=== PATIENT | female | born 1970 | race Caucasian/White ===

== ENCOUNTER 2020-08-26 13:24 | Outpatient (REF) | payer OTHER, SELFPAY ==
[2020-08-26 13:45] LABS: COVID-19 Test Negative (Negative)
== END 2020-08-26 13:25 | disposition home or self-care (01) ==
LOC: HO.EMPCOV 13:24
PROVIDERS: Visit Provider Internal Medicine
DX: Z20.822 Contact with and (suspected) exposure to COVID-19 (principal)
CPT/HCPCS: 36415; 87635; C9803

== ENCOUNTER 2020-09-16 07:59 | Outpatient (REF) | payer OTHER, SELFPAY ==
[2020-09-16 08:16] LABS: COVID-19 Test Negative (Negative); IDNOW Serial# 55D5AD1C
== END 2020-09-16 08:00 | disposition home or self-care (01) ==
LOC: HO.EMPCOV 07:59
PROVIDERS: Visit Provider Internal Medicine
DX: Z20.822 Contact with and (suspected) exposure to COVID-19 (principal)
CPT/HCPCS: 36415; 87635; C9803

== ENCOUNTER 2020-12-15 09:03 | Outpatient (REF) | payer OTHER, SELFPAY | END 2020-12-15 09:04 | disposition home or self-care (01) | LOC: HO.LAB 09:03 | PROVIDERS: PCP Internal Medicine; Visit Provider Obstetrics & Gynecology | DX: Z13.89 Encounter for screening for other disorder (principal) ==

== ENCOUNTER 2020-12-20 08:25 | Outpatient (REF) | payer OTHER, SELFPAY ==
--- NOTE | ~2020-12-20 | US_ITS ---
EXAMINATION: ULTRASOUND PELVIS. CLINICAL INFORMATION: History of fibroids. Pelvic pain. COMPARISON: None TECHNIQUE: Transabdominal and transvaginal imaging of pelvis is performed. FINDINGS: The uterus is anteverted and anteflexed measuring 10.5 cm in length, 7.6 and AP and 9.3 cm in transverse dimension . The endometrial thickness is 0.61 cm. There are multiple hypoechoic fibroids. 1. A right fundal fibroid measures 5.9 x 5.3 x 4.6 cm. Previously it measured 4.9 x 4.5 x 4.1 cm. 2. A second left upper body/fundal fibroid measures 3.2 x 3.4 x 2.8 cm. Previously it measured 3.6 x 3.1 x 2.9 cm. 3. A third fibroid in the mid left mid body of uterus measures 3.2 x 2.4 x 2.9 cm. Previously noted 2.5 x 2.3 x 2.8 cm. Imaging through the cervix reveals small nabothian cysts. The right ovary measures 3.3 x 1.8 x 3.0 cm and volume 9.3 mL. It appears unremarkable. Previously right ovary measures 3.4 x 2.0 x 1.8 cm Left ovary measures 2.3 x 2.1 x 2.4 cm and volume 6.2 mL. Previously it measured 3.0 x 1.1 x 2.8 cm. There is no free fluid in the cul-de-sac. US/US pelvic and transvaginal IMPRESSION: Both uterine fibroids are stable. Small nabothian cysts in the cervix. Ovaries are unremarkable.
== END 2020-12-20 08:26 | disposition home or self-care (01) ==
LOC: HO.HMGCX 08:25
PROVIDERS: PCP Internal Medicine; Visit Provider Obstetrics & Gynecology
DX: N85.2 Hypertrophy of uterus (principal)
CPT/HCPCS: 76830; 76856

== ENCOUNTER 2020-12-27 10:16 | Outpatient (REF) | payer OTHER, SELFPAY ==
[2020-12-27 11:14] LABS: Hematocrit 39.6 % (37-47); Hemoglobin 12.7 g/dl (12.0-16.0); Mean Corpuscular HGB Conc 32.1 g/dl (31.0-35.0); Mean Corpuscular Hemoglobin 26.7 pg (27.0-33.0); Mean Corpuscular Volume 83.4 fL (80-98); Mean Platelet Volume 10.5 fL (9.4-12.3); Platelet Count 326 X10*3/uL (160-400); Red Blood Count 4.75 X10*6/uL (4.20-5.50); Red Cell Distribution Width 13.1 % (11.0-16.0); White Blood Count 5.8 X10*3/uL (4.8-10.8)
[2020-12-27 11:37] LABS: Alanine Aminotransferase 15 U/L (0-31); Albumin Level 4.2 g/dL (3.5-5.0); Alkaline Phosphatase 60 U/L (39-117); Anion Gap 13 (12-20); Aspartate Amino Transferase 13 U/L (5-31); Bilirubin Direct 0.2 mg/dL (0.0-0.5); Bilirubin Total 0.5 mg/dL (0.0-1.0); Blood Urea Nitrogen 11 mg/dL (9-16); C Reactive Protein 0.33 mg/dL (< or = 0.50); Carbon Dioxide 23 mmol/L (22-29); Chloride 106 mmol/L (96-108); Cholesterol 210 mg/dL; Estimated Glomerular Filt Rate > 60; Glucose Random 97 mg/dL (60-115); HDL Cholesterol 60 mg/dL; LDL Cholesterol Calculated 139 mg/dl; Potassium 4.1 mmol/L (3.3-5.1); Sodium 138 mmol/L (135-145); Total Protein 7.1 g/dL (6.5-8.0); Triglycerides 57 mg/dL
[2020-12-27 11:42] LABS: Glucose Urine UA NEG (NEG); Leukocyte Esterase Urine NEG (NEG); Nitrite Urine NEG (NEG); Specific Gravity - Urine 1.015 (1.005-1.025); Urine Blood 3+ (NEG); Urine Ketones NEG (NEG); Urine Protein NEG (NEG-TRACE)
[2020-12-27 11:54] LABS: Appearance Urine HAZY; Color Urine YELLOW
[2020-12-27 12:06] LABS: Folate 13.5 ng/mL (> or = 4.0); Vitamin B12 565 pg/mL (200-900)
[2020-12-27 12:31] LABS: Renal Epithelial Cells Urine TRACE /LPF; Squamous Epithelial Cell Urine 1+ /LPF; WBC Urine 0 /HPF (0-4)
[2020-12-31 16:42] LABS: Vitamin D 25-OH, D2 <4 ng/mL; Vitamin D 25-OH, D3 13 ng/mL; Vitamin D 25-OH, Total 13 ng/mL (30-100)
== END 2020-12-27 10:17 | disposition home or self-care (01) ==
LOC: HO.LAB 10:16
PROVIDERS: PCP Internal Medicine; Visit Provider Internal Medicine
DX: K51.90 Ulcerative colitis, unspecified, without complications (principal); R53.82 Chronic fatigue, unspecified
CPT/HCPCS: 36415; 80048; 80061; 80076; 81001; 81003; 82306; 82607; 82746; 85027; 86140

== ENCOUNTER 2021-03-04 12:53 | Outpatient (REF) | payer OTHER, SELFPAY ==
--- NOTE | ~2021-03-04 | MM_ITS ---
EXAMINATION: MM SCREENING DIGITAL BREAST TOMOSYNTHESIS, BILATERAL CLINICAL INFORMATION: Screening. Asymptomatic. The lifetime risk of breast cancer based on the Tyrer-Cuzick Model is 16%. COMPARISON: Mammography: 09/13/2018, 07/24/2014 (baseline) TECHNIQUE: Digital breast tomosynthesis is performed in both the craniocaudal and mediolateral oblique views along with computer-aided detection (CAD). Synthesized 2D images are generated from the tomosynthesis. FINDINGS: There are scattered areas of fibroglandular density (ACR BI-RADS breast composition Category b). There are no significant masses, abnormal calcifications, or other abnormalities. Parenchymal pattern is similar to prior studies. No significant changes. MM/MM tomosynthesis screening BI IMPRESSION: No mammographic evidence of malignancy. ASSESSMENT: BI-RADS 1: Negative RECOMMENDATION: Routine annual mammography screening. This patient's information was entered into a reminder system with a target due date for their next mammogram.
[2021-03-04 16:44] LABS: COVID-19 Test Negative (Negative)
== END 2021-03-04 12:54 | disposition home or self-care (01) ==
LOC: HO.MAMMO 12:53
PROVIDERS: PCP Internal Medicine; Referring Provider Physician Assistant Medical; Visit Provider Internal Medicine
DX: Z12.31 Encounter for screening mammogram for malignant neoplasm of breast (principal); Z20.822 Contact with and (suspected) exposure to COVID-19
CPT/HCPCS: 36415; 77063; 77067; 87635

== ENCOUNTER 2021-10-20 12:43 | Outpatient (REF) | payer OTHER, SELFPAY ==
--- NOTE | ~2021-10-20 | XR_ITS ---
EXAMINATION: XR KNEE, RIGHT CLINICAL INFORMATION: Pain in right knee. COMPARISON: X-ray of the right knee December 2011. TECHNIQUE: 3 views of the right knee. FINDINGS: Bones and soft tissues are normal. No fracture or joint effusion. Alignment is anatomic. Joint spaces are well maintained. No abnormal soft tissue calcification. XR/XR knee RT 3V IMPRESSION: Normal right knee.
== END 2021-10-20 12:44 | disposition home or self-care (01) ==
LOC: HO.XRAY 12:43
PROVIDERS: PCP Internal Medicine; Visit Provider Internal Medicine
DX: M25.561 Pain in right knee (principal)
CPT/HCPCS: 73562

== ENCOUNTER 2021-12-09 13:47 | Outpatient (REF) | payer OTHER, SELFPAY ==
[2021-12-09 14:46] LABS: Influenza A PCR NEGATIVE (Negative); Influenza B PCR NEGATIVE (Negative); Resp Syncy Virus RNA Qual PCR NEGATIVE (Negative); SARS COV2 PCR INHOUSE NEGATIVE (Negative)
== END 2021-12-09 13:48 | disposition home or self-care (01) ==
LOC: HO.LNP 13:47
PROVIDERS: Visit Provider Nurse Practitioner Acute Care
DX: Z20.822 Contact with and (suspected) exposure to COVID-19 (principal)
CPT/HCPCS: 0241U

== ENCOUNTER 2021-12-09 14:29 | Outpatient (REF) | payer OTHER, SELFPAY | END 2021-12-09 14:30 | disposition home or self-care (01) | LOC: HO.LAB 14:29 | PROVIDERS: Visit Provider Nurse Practitioner Acute Care | DX: Z13.89 Encounter for screening for other disorder (principal) ==

== ENCOUNTER 2021-12-26 10:20 | Outpatient (REF) | payer OTHER, SELFPAY ==
[2021-12-26 16:54] LABS: CT PCR NOT DETECTED (Not Detect.); NG PCR NOT DETECTED (Not Detect.)
[2021-12-27 13:17] LABS: BV Int Neg Control Negative (Negative); BV Int Pos Control Positive (Positive)
[2021-12-29 02:10] LABS: HPV mRNA E6/E7 rflx Not Detected (Not Detected)
== END 2021-12-26 10:21 | disposition home or self-care (01) ==
LOC: HO.LAB 10:20
PROVIDERS: PCP Internal Medicine; Visit Provider Advanced Practice Midwife
DX: Z01.419 Encounter for gynecological examination (general) (routine) without abnormal findings (principal); Z11.51 Encounter for screening for human papillomavirus (HPV); N93.9 Abnormal uterine and vaginal bleeding, unspecified; Z20.2 Contact with and (suspected) exposure to infections with a predominantly sexual mode of transmission; Z86.018 Personal history of other benign neoplasm
CPT/HCPCS: 87480; 87491; 87510; 87591; 87624; 87660; 88142

== ENCOUNTER 2022-01-03 08:54 | Outpatient (REF) | payer OTHER, SELFPAY ==
--- NOTE | ~2022-01-03 | MM_ITS ---
EXAMINATION: MM DIAGNOSTIC DIGITAL BREAST TOMOSYNTHESIS, BILATERAL US DIAGNOSTIC ULTRASOUND BREAST, RIGHT CLINICAL INFORMATION: Recent right breast pain. Age 51. Family history breast cancer, daughter. TC score 20%. Due for yearly. COMPARISON: Mammography: 03/04/2021, 09/13/2018, 07/24/2014 TECHNIQUE: Digital breast tomosynthesis is performed in both the craniocaudal and mediolateral oblique views along with computer-aided detection (CAD). Synthesized 2D images are generated from the tomosynthesis. Additional views are obtained: Spot left CC, spot left MLO. Ultrasound right breast is targeted to the area of clinical concern retroareolar breast, lower outer quadrant, lower inner quadrant. Grayscale imaging and color Doppler are performed without and with harmonics. FINDINGS: There are scattered areas of fibroglandular density (ACR BI-RADS breast composition Category b). Breast tissue composition borders on heterogeneously dense. Parenchymal asymmetry mid upper outer left breast shows no significant change from prior studies on the additional spot views. Neither breast shows interval mass or architectural abnormality or abnormal calcifications. The axilla and skin contours are unremarkable. There is no skin thickening or coarsening of the Chandler's ligaments. Ultrasound right breast demonstrates incidental smooth oval isoechoic nodule 9:00 position 4 cm from nipple measuring under 1 cm, or approximately 0.8 x 0.7 x 0.4 cm. This most likely represents an occult fibroadenoma and may be followed in 6 months with targeted ultrasound to confirm stability. The remainder of the right ultrasound shows no cystic or solid mass or architectural abnormality or focal duct ectasia. There is no skin thickening or edema tracking in soft tissue planes. Results are discussed with the patient at time of visit. MM/MM tomosynthesis diagnostic BI IMPRESSION: -Mammogram shows no significant change from prior studies. -No focal inflammatory changes on mammography or ultrasound. -Probable benign fibroadenoma 9:00 right breast, under 1 cm. ASSESSMENT: BI-RADS 3: Probably Benign RECOMMENDATION: Targeted right breast ultrasound in 6 months. This patient's information was entered into a reminder system with a target due date for their next mammogram.
== END 2022-01-03 08:55 | disposition home or self-care (01) ==
LOC: HO.MAMMO 08:54
PROVIDERS: PCP Internal Medicine; Visit Provider Internal Medicine
DX: N64.4 Mastodynia (principal); Z80.3 Family history of malignant neoplasm of breast
CPT/HCPCS: 76642; 77062; 77066

== ENCOUNTER 2022-02-28 10:28 | Outpatient (REF) | payer OTHER, SELFPAY ==
--- NOTE | ~2022-02-28 | US_ITS ---
EXAMINATION: US PELVIS CLINICAL INFORMATION: History of fibroids. Abnormal vaginal bleeding. COMPARISON: 12/20/2020. TECHNIQUE: Ultrasound of the pelvis is performed using both transabdominal and transvaginal transducers along with Doppler. Transvaginal imaging is performed due to inadequate visualization transabdominally. FINDINGS: The uterus is enlarged and anteverted/anteflexed measuring 9.8 x 6.7 x 7.2 cm. Multiple fibroids are noted as follow: 1. A 1.5 x 1.1 x 1.8 cm right fundal intramural fibroid, previously not seen. 2. A 2 x 1.8 x 2 cm left fundal intramural fibroid, previously 3.2 x 3.4 x 2.8 cm. 3. A 2.5 x 2.8 x 2.5 cm right upper part submucosal fibroid, previously not seen. 4. A 3.2 x 3.2 x 3.1 cm left mid uterine intramural fibroid, previously 3.2 x 2.4 x 2.9 cm. 5. A 5.8 x 4.7 x 4.9 cm right lower, possibly part submucosal fibroid, previously 5.9 x 5.3 x 4.6 cm. 6. A 2.4 x 1.9 x 2.3 cm right mid uterine intramural fibroid, previously not seen. Nabothian cysts overlie the cervix. The endometrium is not well visualized due to distortion from the fibroids. The ovaries are best visualized transabdominal with normal morphology and preserved flow at the moment of this examination. The right ovary measures 4.3 x 2.3 x 4.9 cm and the left ovary measures 2.9 x 1.2 x 2.2 cm. Discrepancies in size are likely related with the presence of a 3.3 cm dominant simple appearing cyst in the right ovary. No free fluid. US/US pelvic and transvaginal IMPRESSION: Multiple uterine fibroids, some of which appeared new as above. Asymmetric enlargement of the right ovary, favored to be related with the presence of a 3.3 cm dominant cyst almost certainly benign and for which no follow-up is recommended.
[2022-02-28 13:54] LABS: Hematocrit 40.7 % (37.0-47.0); Mean Corpuscular HGB Conc 31.9 g/dl (31.0-35.0); Mean Corpuscular Volume 84.6 fL (80.0-98.0); Mean Platelet Volume 10.3 fL (9.4-12.3); Platelet Count 373 X10*3/uL (160-400); Red Blood Count 4.81 X10*6/uL (4.20-5.50); Red Cell Distribution Width 12.7 % (11.0-16.0); White Blood Count 6.1 X10*3/uL (4.8-10.8)
[2022-02-28 14:33] LABS: HCG Quantitative < 2 mIU/mL; Thyroid Stimulating Hormone 3.04 uIU/mL (0.32-4.0)
[2022-03-02 10:36] LABS: Follicle Stimulating Hormone 7.3 mIU/mL
== END 2022-02-28 10:29 | disposition home or self-care (01) ==
LOC: HO.HMGCX 10:28
PROVIDERS: PCP Internal Medicine; Visit Provider Advanced Practice Midwife
DX: O20.0 Threatened abortion (principal); R23.2 Flushing
CPT/HCPCS: 36415; 76830; 76856; 83001; 84443; 84702; 85027

== ENCOUNTER 2022-03-24 08:26 | Outpatient (REF) | payer OTHER, SELFPAY | END 2022-03-24 08:27 | disposition home or self-care (01) | LOC: HO.LAB 08:26 | PROVIDERS: PCP Internal Medicine; Visit Provider Advanced Practice Midwife | DX: Z32.02 Encounter for pregnancy test, result negative (principal); N93.9 Abnormal uterine and vaginal bleeding, unspecified; D25.9 Leiomyoma of uterus, unspecified; Z71.2 Person consulting for explanation of examination or test findings | CPT/HCPCS: 58100; 81025; 88305 ==

== ENCOUNTER 2022-07-19 10:45 | Outpatient (REF) | payer OTHER, SELFPAY ==
--- NOTE | ~2022-07-19 | US_ITS ---
EXAMINATION: US DIAGNOSTIC ULTRASOUND BREAST, RIGHT CLINICAL INFORMATION: Short interval six-month follow-up probable benign nodule mid outer right breast. Nodule noted on targeted ultrasound performed for mastodynia, mammographic occult. Family history breast cancer, daughter. TC score 28%. COMPARISON: Targeted right breast ultrasound 01/03/2022, mammography 01/03/2022. TECHNIQUE: Ultrasound right breast is targeted to the outer breast using grayscale imaging and color Doppler without and with harmonics. FINDINGS: The small oval nodule with smooth margins mid outer breast just under 1 cm is stable in size and smooth in contour. There are no suspicious changes. Nodule will be reassessed again in 6 months at time of annual bilateral mammography to include targeted right breast ultrasound. Results are discussed with the patient at time of visit. US/US breast RT limited IMPRESSION: -Small smooth oval nodule mid outer right breast stable from prior ultrasound. ASSESSMENT: BI-RADS 3: Probably Benign RECOMMENDATION: Targeted ultrasound right breast at time of annual mammography, due in 6 months. This patient's information was entered into a reminder system with a target due date for their next mammogram.
== END 2022-07-19 10:46 | disposition home or self-care (01) ==
LOC: HO.MAMMO 10:45
PROVIDERS: PCP Internal Medicine; Visit Provider Internal Medicine
DX: N63.15 Unspecified lump in the right breast, overlapping quadrants (principal)
CPT/HCPCS: 76642

== ENCOUNTER 2022-07-28 10:36 | Outpatient (REF) | payer OTHER, SELFPAY ==
--- NOTE | ~2022-07-28 | US_ITS ---
EXAMINATION: US PELVIS CLINICAL INFORMATION: History of fibroids. Three-month followup. COMPARISON: Ultrasound pelvis and transvaginal 02/28/2022. TECHNIQUE: Ultrasound of the pelvis is performed using both transabdominal and transvaginal transducers along with Doppler. Transvaginal imaging is performed due to inadequate visualization transabdominally. FINDINGS: Uterus: The uterus is anteverted, anteflexed and measures 13.5 x 7.9 x 8.9 cm. The double wall endometrial thickness is not visualized due to multiple fibroids distorting the endometrium. The uterus is bulky and heterogeneous. There are multiple uterine fibroids. 1. A right fundal fibroid measures 2.5 x 2.5 x 2.5 cm. Previously, it measured 1.5 x 1.1 x 1.8 cm. 2. A left fundal fibroid measures 1.6 x 1.9 x 2.3 cm. Previously, it measured 2.0 x 1.8 x 2.0 cm. 3. Previously seen lesion in the right body of the uterus is not visualized. 4. There is a lesion in the left mid body of the uterus measuring 3.3 x 2.9 x 2.8 cm. Previously, it measured 3.2 x 3.2 x 3.1 cm. 5. There is a lesion in the right mid body of the uterus measuring 5.3 x 5.4 x 4.9 cm. Previously, it measures 5.8 x 4.7 x 4.9 cm. 6. Small lesion seen in the mid right body of the uterus is not visualized at this time. There are small anechoic cysts seen in the cervix. Adnexa: Both ovaries are visualized. There is normal color-flow to the adnexa. There is no ovarian torsion. There is no pelvic ascites or fluid collection. Right ovary measures 4.2 x 3.2 x 4.0 cm and volume 28.7 mL. There is an anechoic cyst measuring 2.7 x 2.3 x 2.6 cm and appears simple cyst. Previously, the right ovary measured 4.3 x 2.3 x 4.9 cm. Left ovary measures 3.6 x 2.6 x 2.5 cm and volume 12.4 mL. There is a simple anechoic cyst measuring 2.0 x 1.3 x 1.5 cm. Previously, left ovary measured 2.9 x 1.2 x 2.2 cm. There is no free fluid in the cul-de-sac. US/US pelvic and transvaginal IMPRESSION: 1. Multiple uterine fibroids, as described above. Previously seen 2 fibroids are not seen at this time. 2. Bilateral simple ovarian cysts. 3. Small nabothian cysts in the cervix.
== END 2022-07-28 10:37 | disposition home or self-care (01) ==
LOC: HO.US 10:36
PROVIDERS: Visit Provider Advanced Practice Midwife
DX: Z86.018 Personal history of other benign neoplasm (principal)
CPT/HCPCS: 76830; 76856

== ENCOUNTER 2022-08-01 | Outpatient (REF) | payer OTHER, SELFPAY ==
--- NOTE | ~2022-08-01 | XR_ITS ---
EXAMINATION: XR knee standing BI CLINICAL INFORMATION: Reason for Exam M25.569 - Pain in unspecified knee COMPARISON: Right knee radiographs 10/20/2021 TECHNIQUE: AP view of the bilateral knees standing. FINDINGS: No acute fracture or dislocation. Joint spaces are maintained without significant degenerative change. No soft tissue abnormality. XR/XR knee standing BI IMPRESSION: No acute osseous abnormality.
== END 2022-08-01 00:01 ==
LOC: HO.HOSX
PROVIDERS: Visit Provider Physician Assistant
DX: M22.41 Chondromalacia patellae, right knee (principal)
CPT/HCPCS: 73565

== ENCOUNTER → 2022-08-18 09:50 | Outpatient (BNVA) | payer OTHER, SELFPAY | PROVIDERS: PCP Internal Medicine; Visit Provider Advanced Practice Midwife | DX: Z13.89 Encounter for screening for other disorder (principal) ==

== ENCOUNTER → 2022-10-12 08:35 | Outpatient (BNVA) | payer OTHER, SELFPAY | PROVIDERS: PCP Internal Medicine; Visit Provider Obstetrics & Gynecology | DX: Z13.89 Encounter for screening for other disorder (principal) ==

== ENCOUNTER 2022-11-10 16:08 | Outpatient (REF) | payer OTHER, SELFPAY ==
[2022-11-10 16:21] LABS: MANUAL DIFF FLAG NO
[2022-11-10 17:16] LABS: Basophils Percent Auto 0.5 % (0-2); Eosinophils Absolute Auto 0.1 X10*3/uL (0.0-0.4); Eosinophils Percent Auto 1.2 % (0-4); Hematocrit 36.7 % (37.0-47.0); Hemoglobin 11.7 g/dl (12.0-16.0); Imm Gran Abs Auto 0.02 X10*3/uL (0.00-0.03); Imm Gran Pct Auto 0.3 % (0.0-0.4); Lymphocytes Absolute Auto 1.8 X10*3/uL (1.2-4.9); Lymphocytes Percent Auto 24.8 % (20-40); Mean Corpuscular HGB Conc 31.9 g/dl (31.0-35.0); Mean Corpuscular Hemoglobin 26.4 pg (27.0-33.0); Mean Corpuscular Volume 82.7 fL (80.0-98.0); Mean Platelet Volume 10.4 fL (9.4-12.3); Monocytes Absolute Auto 0.6 X10*3/uL (0.1-1.2); Monocytes Percent Auto 7.4 % (2-11); Neutrophils Absolute Auto 4.9 x10*3/uL (2.0-8.3); Neutrophils Percent Auto 65.8 % (45-73); Platelet Count 367 X10*3/uL (160-400); Red Blood Count 4.44 X10*6/uL (4.20-5.50); Red Cell Distribution Width 13.2 % (11.0-16.0); White Blood Count 7.4 X10*3/uL (4.8-10.8)
[2022-11-10 17:45] LABS: Alanine Aminotransferase 14 U/L (0-31); Alkaline Phosphatase 53 U/L (39-117); Anion Gap 11 (12-20); Aspartate Amino Transferase 14 U/L (5-31); Bilirubin Total 0.6 mg/dL (0.0-1.0); Blood Urea Nitrogen 11 mg/dL (9-16); C Reactive Protein 0.14 mg/dL (< or = 0.50); Calcium 9.4 mg/dL (8.4-10.2); Carbon Dioxide 27 mmol/L (22-29); Chloride 104 mmol/L (96-108); Estimated Glomerular Filt Rate > 60; Glucose Random 85 mg/dL (60-115); Lipase 21 U/L (8-78); Potassium 4.2 mmol/L (3.3-5.1); Sodium 138 mmol/L (135-145); Total Protein 6.7 g/dL (6.5-8.0)
[2022-11-10 18:04] LABS: Erythrocyte Sedimentation Rate 7 MM/HR (0-20)
[2022-11-10 18:15] LABS: Appearance Urine Clear; Color Urine Yellow; Glucose Urine UA Negative (Negative); Leukocyte Esterase Urine Negative (Negative); Nitrite Urine Negative (Negative); Urine Blood Negative (Negative); Urine Ketones Negative (Negative); Urine Protein Negative (Neg-Trace)
== END 2022-11-10 16:09 | disposition home or self-care (01) ==
LOC: HO.LAB 16:08
PROVIDERS: PCP Internal Medicine; Visit Provider Internal Medicine
DX: R10.9 Unspecified abdominal pain (principal)
CPT/HCPCS: 36415; 80053; 81003; 83690; 85025; 85652; 86140

== ENCOUNTER 2022-11-15 08:17 | Outpatient (REF) | payer OTHER, SELFPAY ==
--- NOTE | ~2022-11-15 | US_ITS ---
EXAMINATION: US ABDOMEN COMPLETE CLINICAL INFORMATION: Unspecified abdominal pain. COMPARISON: 11/06/2019 abdominal ultrasound TECHNIQUE: Real-time imaging of the abdominal viscera. FINDINGS: PANCREAS: Visualized portions unremarkable. ABDOMINAL AORTA: Visualized portions unremarkable. INFERIOR VENA CAVA: Visualized portions unremarkable. LIVER: Unremarkable. GALLBLADDER: Unremarkable. COMMON BILE DUCT: Normal in caliber measuring 0.4 cm in diameter. RIGHT KIDNEY: 10.4 cm. Unremarkable. LEFT KIDNEY: 10.2 cm. Unremarkable. SPLEEN: 8.2 cm. Unremarkable. FREE FLUID: None. OTHER: Additional scanning in the left lower quadrant showed no abnormality. US/US abdomen complete IMPRESSION: Unremarkable abdominal ultrasound.
== END 2022-11-15 08:18 | disposition home or self-care (01) ==
LOC: HO.US 08:17
PROVIDERS: PCP Internal Medicine; Visit Provider Internal Medicine
DX: R10.9 Unspecified abdominal pain (principal)
CPT/HCPCS: 76700

== ENCOUNTER 2023-01-17 08:27 | Outpatient (REF) | payer OTHER, SELFPAY ==
--- NOTE | ~2023-01-17 | MM_ITS ---
EXAMINATION: MM DIAGNOSTIC DIGITAL BREAST TOMOSYNTHESIS, BILATERAL US DIAGNOSTIC ULTRASOUND BREAST, RIGHT CLINICAL INFORMATION: Due for yearly. Also follow-up probable benign smooth nodule anterior outer right breast. Family history breast cancer, daughter. The lifetime risk of breast cancer based on the Tyrer-Cuzick Model is 14%. COMPARISON: Mammography: 01/03/2022, 03/04/2021, 09/13/2018, 07/24/2014 (baseline); right breast ultrasound 01/03/2022. TECHNIQUE: Digital breast tomosynthesis is performed in both the craniocaudal and mediolateral oblique views along with computer-aided detection (CAD). Synthesized 2D images are generated from the tomosynthesis. Ultrasound right breast is targeted to the outer breast using grayscale imaging and color Doppler without and with harmonics. FINDINGS: There are scattered areas of fibroglandular density (ACR BI-RADS breast composition Category b). The parenchymal pattern is similar to prior exams and there is no developing density or architectural abnormality or significant mass. There are scattered bilateral minor asymmetries similar to prior studies. No abnormal calcifications. The axilla and skin contours are unremarkable. Ultrasound right breast demonstrates stable circumscribed hypoechoic subcentimeter nodule 8:00 positions within 6 cm of nipple. Finding is similar in size and contour. No associated color flow. Results are discussed with the patient at time of visit. MM/MM tomosynthesis diagnostic BI IMPRESSION: -No significant changes from prior studies. -Avascular circumscribed nodule under 1 cm for follow-up is stable. ASSESSMENT: BI-RADS 3: Probably Benign RECOMMENDATION: Diagnostic mammography along with targeted right breast ultrasound, due in 12 months. This patient's information was entered into a reminder system with a target due date for their next mammogram.
== END 2023-01-17 08:28 | disposition home or self-care (01) ==
LOC: HO.MAMMO 08:27
PROVIDERS: PCP Internal Medicine; Visit Provider Internal Medicine
DX: N64.89 Other specified disorders of breast (principal)
CPT/HCPCS: 76642; 77062; 77066

== ENCOUNTER 2023-03-22 11:16 | Outpatient (REF) | payer OTHER, SELFPAY ==
--- NOTE | ~2023-03-22 | US_ITS ---
EXAMINATION: US PELVIS COMPLETE CLINICAL INFORMATION: Leiomyoma COMPARISON: Pelvic ultrasound 07/28/2022 TECHNIQUE: Transabdominal and transvaginal imaging was performed. FINDINGS: The uterus is of normal size measuring 9.8 x 7.0 x 8.5 cm. The endometrium is obscured by uterine myomas. Multiple uterine myomas including a transmural myoma measuring 5.9 x 5.1 x 4.2 cm in the fundus, previously 5.3 x 5.4 x 4.5 cm, a myoma measuring 3.6 x 2.8 x 3.4 cm, previously 3.2 x 3.0 x 2.8 cm, a 2.2 x 2.2 x 2.6 cm myoma in the posterior body, previously 1.6 x 1.9 x 2.3 cm and a new 1.4 x 1.7 x 1.3 cm myoma in the posterior body. Given the endometrium was not well seen is difficult to assess if any of these demonstrate submucosal components. The right ovary measures 4 x 2.7 x 3.9 cm for a volume of 24.3 mL and is remarkable for a 3.7 x 2.7 x 3.4 cm unilocular simple cyst. The left identified sonographically. No adnexal mass. Nabothian cysts in the cervix. There is no pelvic free fluid. US/US pelvic and transvaginal IMPRESSION: 1. Myomatous uterus with myomas overall increased in size from prior with a new 1.7 cm myoma in the posterior body. 2. The endometrium is obscured by uterine myomas. 3. The left ovary was not identified sonographically. A 3.7 cm unilocular simple cyst in the right ovary, almost certainly benign. No follow-up imaging recommended.
== END 2023-03-22 11:17 | disposition home or self-care (01) ==
LOC: HO.US 11:16
PROVIDERS: PCP Internal Medicine; Visit Provider Obstetrics & Gynecology
DX: D25.9 Leiomyoma of uterus, unspecified (principal)
CPT/HCPCS: 76830; 76856

== ENCOUNTER 2023-04-03 09:50 | Outpatient (AMB) | payer OTHER, SELFPAY ==
--- NOTE | 2023-04-03 09:56 | A.OFFVIS_ITS ---
Intake Vital Signs 04/03/23 09:58 Height 5 ft 4 in Weight 154 lb BMI 26.4 BP 110/72 Intake Visit Reasons: Annual Intake Note: The patient agreed to use of a biomedical engineering director during this encounter. Scribed for KULDEEP Almaguer by Triny Jimenez biomedical engineering director, on 04/03/2023 at 10:20 am EST. Commercial Floor Covering Installer Required: No Information Interpreted: non-clinical & clinical Talent Acquisition Administrator: Talent Acquisition Administrator Present (Kimmie) Allergies morphine [MORPHINE] Allergy (Intermediate, Verified 04/03/23 10:00) RASH, Hives sertraline Adverse Reaction (Unknown, Verified 04/03/23 10:00) Ulcerative Colitis flared seasonal Allergy (Mild, Uncoded 04/03/23 10:00) Sneezing Is last menstrual period known: Yes Last menstrual period: 03/10/23 Post menopausal: Yes Patient : No HPI HPI Comments History of Present Illness Details She is a premenopausal woman presenting for annual exam. She recently had a US at [facility] for fibroids and is awaiting results to determine decision making; follow up is Apr 25 2023. Patient admits she tries to eat a healthy diet including Calcium and Vitamin D. She stays active with exercise. Reports she was skipping her menses but now they have returned every other month and flow has lessen. Currently not sexually active. Denies vaginal itching and irritation. STD screening offered; she declines. Denies family hx of colon and ovarian cancer. Last pap smear 12/26/21 Last mammogram UTD on colonoscopy. [facility] Medical History Fatigue History of uterine fibroid Ulcerative colitis Surgical History History of cervical polypectomy History of surgical procedure History of tooth extraction Hx of colonoscopy (~11/14/19) Family History Daughter Breast cancer, Onset Age: 31 Maternal Grandmother Cancer Social History Housing: Apartment Alcohol intake: current Alcohol intake frequency: holidays/special occasions only Patient Tobacco Use Status: Never used Tobacco e-Cigarette/Vaping Use: Never Used Second Hand Smoke Exposure: No Special kali accommodation details: [employer] Current occupational status: employed Gender identity: Female Cognitive needs: No Hearing needs: No Vision needs: No Female Reproductive History Menstrual Age of Menarche: 12 Date of last menstrual period: 03/10/23 control method: none Total pregnancies: 1 Full term: 1 Number of Living Children: 1 Date of last pap smear: 12/26/21 (neg pap andhpv) History of abnormal pap smear: Yes (09/24 ascus 10/11/11 ascus neg hpv 06/30 neg,neg) Date of Mammogram: 02/06/23 (Birad 3) Physical Exam Vital Signs: Last Vital Signs BP 110/72 04/03/23 09:58 BMI result Body Mass Index 26.4 Const General: cooperative, healthy appearing, no acute distress, well developed and alert Orientation/consciousness: patient oriented x3 HEENT Head: Yes normal to inspection Eyes General: appearance normal, both eyes and all related structures Neck Neck: Yes normal visual inspection Thyroid: Thyroid normal Chest Chest palpation & inspection: normal inspection of the chest Breast/axilla inspection: normal inspection of the breasts (no puckering, dimpling, peau de orange, retraction, discharge, masses) Breast/axilla palpation: normal palpation of the breasts Resp Effort & Inspection: normal respiratory effort GI Inspection: Yes normal to inspection Palpation (GI): Soft to palpation (to palpation) Rectal Exam - Female: deferred General: Yes bladder normal to inspection External Female Exam: normal external appearance and normal appearance of the urethra Speculum Exam - Vagina: normal appearance of the vagina, normal palpation and normal vaginal discharge Speculum Exam - Cervix: normal appearance of the cervix and normal palpation Bimanual exam- vagina & uterus: normal palpation and normal palpation Bimanual Exam- Adnexa, other: normal adnexae and no masses Skin General skin exam: no rashes or lesions noted Neuro General: patient oriented x3 Cognition (Neuro): normal cognition Extrem General: Yes normal to inspection Psych Attitude: cooperative Thought process: Normal thought process present Assessment & Plan Assessment & Plan (1) Encounter for well woman exam: Code(s): Z01.419 - Encounter for gynecological examination (general) (routine) without abnormal findings Plan: Discussed: Current recommendations for pap smears per ASCCP guidelines Breast awareness and periodic self breast exams. Maintaining a healthy lifestyle including a well balanced diet and routine exercise. Monitor menses and followup with [facility] for fibroids and possible surgery/decision making. All of her questions and concerns were addressed to the best of my ability. RTO in one year for AG. Coding Level of Care Code Est Pt Prev Care 40-64y(05144) Diagnoses Encounter for well woman exam Z01.419
[2023-04-03 09:58] VITALS: BP 110/72; BMI 26.4
== END 2023-04-03 10:34 | disposition home or self-care (01) ==
LOC: HO.HWS 09:50
PROVIDERS: PCP Internal Medicine; Visit Provider Advanced Practice Midwife
DX: Z01.419 Encounter for gynecological examination (general) (routine) without abnormal findings (principal)
CPT/HCPCS: 99396

== ENCOUNTER → 2023-04-03 09:50 | Outpatient (BNVA) | payer OTHER, SELFPAY | PROVIDERS: PCP Internal Medicine; Visit Provider Advanced Practice Midwife ==

== ENCOUNTER 2023-04-10 14:34 | Outpatient (AMB) | payer OTHER, SELFPAY ==
[2023-04-10 14:41] VITALS: BP 104/78; PULSE 71; O2SAT 99; BMI 26.3
--- NOTE | 2023-04-10 14:41 | MHC.PC.OV ---
Vital Signs 04/10/23 14:41 Height 5 ft 4 in Weight 153 lb BMI 26.3 BP 104/78 Blood Pressure Location Lt brachial Position Sitting Pulse 71 Pulse Source Pulse Oximeter Pulse Oximetry (%) 99 Oxygen Delivery Method Room Air Intake Visit Reasons: varicose veins Payer Specialist Required: No Accompanied by: Self / Same As Patient Allergies morphine [MORPHINE] Allergy (Intermediate, Verified 04/10/23 15:15) RASH, Hives sertraline Adverse Reaction (Unknown, Verified 04/10/23 15:15) Ulcerative Colitis flared seasonal Allergy (Mild, Uncoded 04/10/23 15:15) Sneezing Medication List - Last Reconciled 04/10/23 by Sunday Gordon MD mesalamine ER (Apriso) 1.5 grams PO QAM Tobacco use date assessed: 04/10/23 Dental Screening Dental Screen Date: 04/10/23 Did you have a dental visit in the last 12 months?: Yes Did you have a dental problem in the last 6 months where you did not have access to dental care?: No Was dental information given to patient?: Patient has dentist HPI varicose veins HPI Details Patient comes in today complaining of recurrent pain and discomfort in both of her legs for the past few weeks Notes that her symptoms often feel worse with prolonged walking or standing and towards the later part of the day Has noticed some localized swelling on her right lower leg as well lately States that she has tried wearing some compression stockings recently and feels that they help States that her mother has varicose veins and is wondering if this can be hereditary She denies any claudication of her legs when walking Denies any chest pains, no SOB No other acute complaints or symptoms are noted [facility] Medical History Fatigue History of uterine fibroid Overweight (BMI 25.0-29.9) Ulcerative colitis Surgical History History of cervical polypectomy History of surgical procedure History of tooth extraction Hx of colonoscopy (~11/14/19) Family History Daughter Breast cancer, Onset Age: 31 Maternal Grandmother Cancer Social History Housing: Apartment Alcohol intake: current Alcohol intake frequency: holidays/special occasions only Patient Tobacco Use Status: Never used Tobacco e-Cigarette/Vaping Use: Never Used Second Hand Smoke Exposure: No Special kali accommodation details: [employer] Current occupational status: employed Gender identity: Female Cognitive needs: No Hearing needs: No Vision needs: No Female Reproductive History Menstrual Age of Menarche: 12 Questionnaire PHQ-9 Over the last 2 weeks, how often have you been bothered by any of the following problems? 1. Little interest or pleasure in doing things: not at all 2. Feeling down, depressed, or hopeless: not at all 3. Trouble falling or staying asleep, or sleeping too much: not at all 4. Feeling tired or having little energy: not at all 5. Poor appetite or overeating: not at all 6. Feeling bad about yourself - or that you are a failure or have let yourself or your family down: not at all 7. Trouble concentrating on things, such as reading the newspaper or watching television: not at all 8. Moving or speaking so slowly that other people could have noticed. Or the opposite - being so fidgety or restless that you have been moving around a lot more than usual: not at all 9. Thoughts that you would be better off or of hurting yourself in some way: not at all Total score: 0 Depression Screening Interpretation: Negative [id number] - PHQ-9 Billing: Yes Source: Developed by Drs. Pato Garay, Madison Hilario, Ney Shelton and colleagues, with an educational desi from [employer]. Thrive Questionnaire Date Thrive assessed: 04/10/23 I am a: Patient What is your living situation today?: I have a steady place to live Within the past 12 months, did the food you bought not last and you didn't have the money to get more?: Never true Within the past 12 months, did you worry whether your food would run out before you got money to buy more?: Never true Do you have trouble paying for medicines?: No Do you have trouble getting transportation to medical appointments?: No Do you have trouble paying your heating and electricity bill?: No Do you have trouble taking care of your child, family member or friend?: No Do you have trouble with day-to-day activities such as bathing, preparing meals, shopping, managing finances, etc.?: No Are you currently unemployed and looking for a job?: No Are you interested in more education?: No Please select the resources that you would like help with: None Currently or been in a relationship where the following occur: no concerns reported AUDIT C Alcohol Use Questionnaire (AUDIT-C) 1. How often do you have a drink containing alcohol?: Never 3. How often do you have six or more drinks on one occasion?: Never Total Score: 0 Score Reviewed/Action Taken: Yes PARRISH-7 AMB Questionnaire PARRISH-7 Date PARRISH - 7 assessed: 04/10/23 Feeling nervous, anxious, or on edge: 0 = Not at all Not being able to stop or control worryin = Not at all Worrying too much about different things: 0 = Not at all Trouble relaxin = Not at all Being so restless that it is hard to sit still: 0 = Not at all Becoming easily annoyed or irritable: 0 = Not at all Feeling afraid as if something awful might happen: 0 = Not at all Total PARRISH-7 score (0-4 normal; 5-9 mild; 10-14 moderate; 15-21 severe): 0 Source: Developed by Drs. Pato Garay, Madison Hilario, Ney Shelton and colleagues, with an educational desi from [employer]. Review of Systems Eder/Lymph Details: (+) prominent large varicose veins over both lower legs, with some soreness/discomfort noted on palpation over both legs Physical exam (Primary Care) Vital Signs: Last Vital Signs Pulse 71 04/10/23 14:41 BP 104/78 04/10/23 14:41 Pulse Ox 99 04/10/23 14:41 Oxygen Delivery Method Room Air 04/10/23 14:41 BMI result Body Mass Index 26.3 Tobacco/Smoking Status: Tobacco use Status Tobacco use date assessed 04/10/23 04/10/23 14:48 Patient Tobacco Use Status Never used Tobacco 04/10/23 14:48 e-Cigarette/Vaping Use Never Used 04/10/23 14:48 PHQ-9: PHQ-9 Score PHQ-9: Total score 0 04/10/23 14:48 Depression Screening Interpretation: Negative Thrive Assessment: Date of Thrive Assessment Date Thrive assessed 04/10/23 04/10/23 14:48 Currently or been in a relationship where the following occur: no concerns reported Const General: no acute distress and alert Neck Neck: Yes no lymphadenopathy and Yes supple Resp Auscultation: clear to auscultation bilaterally, no rales and no wheezes Cardio Rate: regular rate Rhythm: regular rhythm Heart sounds: no murmurs GI Palpation (GI): Soft to palpation and nontender Auscultation: normal bowel sounds Extrem Other: (+) scattered patches of prominent varicose veins over both lower extremities General: Yes no clubbing, cyanosis or edema Results Reviewed Results Reviewed: Laboratory Tests 11/10/22 11/10/22 11/10/22 16:18 16:18 16:18 WBC 7.4 Hgb 11.7 L Hct 36.7 L Plt Count 367 ESR 7 Sodium 138 Potassium 4.2 Creatinine 0.78 Estimated GFR > 60 Random Glucose 85 Calcium 9.4 AST 14 ALT 14 C-Reactive Protein 0.14 Ur Specific [place] Urine Protein Urine Glucose (UA) Urine Blood 11/10/22 17:50 WBC Hgb Hct Plt Count ESR Sodium Potassium Creatinine Estimated GFR Random Glucose Calcium AST ALT C-Reactive Protein Ur Specific [place] 1.020 Urine Protein Negative Urine Glucose (UA) Negative Urine Blood Negative Assessment and Plan Assessment & Plan (1) Varicose veins of bilateral lower extremities with pain: Code(s): I83.813 - Varicose veins of bilateral lower extremities with pain Plan: Discussed that her symptoms are likely due to venous insufficiency Will refer her to vascular surgery for further evaluation and management (2) Mild anemia: Code(s): D64.9 - Anemia, unspecified Plan: Advised that she has mild anemia on her labs done back in October 2022 States that she started taking Multivitamins with Iron a couple of months ago - advised that this should likely be sufficient to get her blood count up to normal over some time Will recheck her CBC when she returns for her annual physical next month (3) Ulcerative colitis: Code(s): K51.90 - Ulcerative colitis, unspecified, without complications Qualifiers: Ulcerative colitis location: unspecified ulcerative colitis location Digestive disease complication type: without complication Qualified Code(s): K51.90 - Ulcerative colitis, unspecified, without complications Plan: Stable/controlled Continue Apriso 1.5 gm Q AM Follow up with GI as scheduled (4) Overweight (BMI 25.0-29.9): Code(s): E66.3 - Overweight Plan: Reinforced diet/exercise as tolerated/lose weight - has been able to lose at least a couple of more pounds since her last visit Plan To return as scheduled next month for her annual physical examination Orders: Referrals Vascular Surgery Referral I83.813 - Varicose veins of bilateral lower extremities with pain Coding Level of Care Code Est Pt Level 3 (93492) Diagnoses Varicose veins of bilateral lower extremities with pain I83.813 Mild anemia D64.9 Ulcerative colitis K51.90 Ulcerative colitis location: unspecified ulcerative colitis location Digestive disease complication type: without complication Overweight (BMI 25.0-29.9) E66.3
== END 2023-04-10 15:25 | disposition home or self-care (01) ==
PROVIDERS: PCP Internal Medicine; Visit Provider Internal Medicine
DX: I83.813 Varicose veins of bilateral lower extremities with pain (principal); D64.9 Anemia, unspecified; K51.90 Ulcerative colitis, unspecified, without complications; E66.3 Overweight
CPT/HCPCS: 99213

== ENCOUNTER 2023-05-10 08:57 | Outpatient (AMB) | payer OTHER, SELFPAY ==
--- NOTE | 2023-05-10 09:01 | A.OFFPC_ITS ---
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 Accompanied by: Self / Same As Patient Allergies morphine [MORPHINE] Allergy (Intermediate, Verified 05/10/23 09:33) RASH, Hives sertraline Adverse Reaction (Unknown, Verified 05/10/23 09:33) Ulcerative Colitis flared seasonal Allergy (Mild, Uncoded 05/10/23 09:33) Sneezing Medication List - Last Reconciled 05/10/23 by Sunday Gordon MD mesalamine ER (Apriso) 1.5 grams PO QAM mirtazapine 7.5 mg PO BEDTIME 30 days Tobacco use date assessed: 05/10/23 Dental Screening Dental Screen Date: 05/10/23 Did you have a dental visit in the last 12 months?: Yes Did you have a dental problem in the last 6 months where you did not have access to dental care?: No Was dental information given to patient?: Patient has dentist HPI pe HPI Details Patient comes in today for her annual physical examination States that she feels okay but has noticed that lately, she has been having some trouble focusing - feels that this has been going on for at least a couple of months now Has noticed that she often has trouble completing/finishing her tasks, getting easily distracted, always feeling like there is something that she needs to be taking care of but she cannot quite put a finger on what it is and almost always feeling that something seems off Thinks that she is currently going through perimenopause as her periods are starting to slow down and have become quite irregular and is wondering if all of her issues are related to her going through perimenopause States that she only rarely gets hot flashes but has noticed that her mood has changed lately - has become more irritable Has also been having trouble sleeping at night for a while now Has tried taking several OTC sleep aids including Valerian root and Melatonin but none of them have really helped States that her colitis seems to be quiet lately and she has stopped taking her Mesalamine ER for now and is trying to eat healthier and is hoping to be able to eventually cut back on her Rx She denies any headaches or dizziness Denies any chest pains, no SOB No nausea/vomiting, no abdominal pain and no change in bowel habits lately She denies any acute urinary symptoms Had some labs done back in October 2022 but these did not include her cholesterol and Vitamin D level and she would like to see if these can be checked Had her screening colonoscopy done with Dr. Lopez back in November 2022 - was recommended to repeat her colonoscopy in 5 years She also had her mammogram done in January 2023 and had her quarter seamer exam and pap smear done last month (March 2023) [facility] Medical History (Updated 05/10/23 @ 11:18 by Sunday Gordon MD) Insomnia Overweight (BMI 25.0-29.9) Fatigue History of uterine fibroid Ulcerative colitis Surgical History Hx of colonoscopy (~11/14/19) History of surgical procedure History of tooth extraction History of cervical polypectomy Family History Daughter Breast cancer, Onset Age: 31 Maternal Grandmother Cancer Social History Housing: Apartment Alcohol intake: current Alcohol intake frequency: holidays/special occasions only Patient Tobacco Use Status: Never used Tobacco e-Cigarette/Vaping Use: Never Used Second Hand Smoke Exposure: No Special kali accommodation details: Nondenominational Current occupational status: employed Gender identity: Female Cognitive needs: No Hearing needs: No Vision needs: No Female Reproductive History Menstrual Age of Menarche: 12 Questionnaire PHQ-9 Over the last 2 weeks, how often have you been bothered by any of the following problems? 1. Little interest or pleasure in doing things: not at all 2. Feeling down, depressed, or hopeless: not at all 3. Trouble falling or staying asleep, or sleeping too much: not at all 4. Feeling tired or having little energy: not at all 5. Poor appetite or overeating: not at all 6. Feeling bad about yourself - or that you are a failure or have let yourself or your family down: not at all 7. Trouble concentrating on things, such as reading the newspaper or watching television: not at all 8. Moving or speaking so slowly that other people could have noticed. Or the opposite - being so fidgety or restless that you have been moving around a lot more than usual: not at all 9. Thoughts that you would be better off or of hurting yourself in some way: not at all Total score: 0 Depression Screening Interpretation: Negative 85672 - PHQ-9 Billing: Yes Source: Developed by Drs. Pato Garay, Madison Hilario, Ney Shelton and colleagues, with an educational desi from [employer]. Thrive Questionnaire Date Thrive assessed: 05/10/23 I am a: Patient What is your living situation today?: I have a steady place to live Within the past 12 months, did the food you bought not last and you didn't have the money to get more?: Never true Within the past 12 months, did you worry whether your food would run out before you got money to buy more?: Never true Do you have trouble paying for medicines?: No Do you have trouble getting transportation to medical appointments?: No Do you have trouble paying your heating and electricity bill?: No Do you have trouble taking care of your child, family member or friend?: No Do you have trouble with day-to-day activities such as bathing, preparing meals, shopping, managing finances, etc.?: No Are you currently unemployed and looking for a job?: No Are you interested in more education?: No Please select the resources that you would like help with: None Currently or been in a relationship where the following occur: no concerns reported AUDIT C Alcohol Use Questionnaire (AUDIT-C) 1. How often do you have a drink containing alcohol?: Never 3. How often do you have six or more drinks on one occasion?: Never Total Score: 0 Score Reviewed/Action Taken: Yes PARRISH-7 AMB Questionnaire PARRISH-7 Date PARRISH - 7 assessed: 05/10/23 Feeling nervous, anxious, or on edge: 0 = Not at all Not being able to stop or control worryin = Not at all Worrying too much about different things: 0 = Not at all Trouble relaxin = Not at all Being so restless that it is hard to sit still: 0 = Not at all Becoming easily annoyed or irritable: 0 = Not at all Feeling afraid as if something awful might happen: 0 = Not at all Total PARRISH-7 score (0-4 normal; 5-9 mild; 10-14 moderate; 15-21 severe): 0 Source: Developed by Drs. Pato Garay, Madison Hilario, Ney Shelton and colleagues, with an educational desi from [employer]. Review of Systems Const Denies chills, Reports difficulty sleeping, Denies fatigue, Denies fever(s), Denies headache(s) and Denies malaise Eyes Denies blurry vision, Denies change in vision, Denies irritation and Denies itchy eyes ENT Denies dysphagia, Denies dizziness, Denies otalgia, Denies headache(s), Denies nasal congestion, Denies neck pain, Denies odynophagia, Denies sinus pain and Denies sore throat Card Denies chest pain, Denies rapid heart rate, Denies irregular heart rhythm, Denies palpitations and Denies dyspnea Resp Denies chest congestion, Denies cough, Denies dyspnea and Denies wheezing GI Denies abdominal pain, Denies bloating, Denies constipation, Denies dysphagia, Denies heartburn, Reports diarrhea (occasionally - due to her colitis but symptoms have been controlled lately), Denies nausea, Denies odynophagia and Denies vomiting Denies hematuria, Denies urinary frequency, Denies dysuria, Denies urinary incontinence and Denies urinary urgency Musc Denies back pain, Denies arthralgias, Denies joint swelling, Denies muscle weakness and Denies neck pain Skin/Breast Denies breast pain, Denies breast mass, Denies change in pigmentation, Denies lesions, Denies rash and Denies unusual bruising Neuro Denies dizziness, Denies headache(s) and Denies paresthesias Psych Denies anxiety, Denies depression, Reports difficulty concentrating (recently - see HPI), Reports irritability and Reports mood swings Endo Denies fatigue and Denies palpitations Eder/Lymph Denies easy bruising Aller/Immun Denies itchy eyes and Denies wheezing Physical exam (Primary Care) Vital Signs: Last Vital Signs Pulse 68 05/10/23 09:02 BP 116/78 05/10/23 09:02 Pulse Ox 99 05/10/23 09:02 Oxygen Delivery Method Room Air 05/10/23 09:02 BMI result Body Mass Index 26.5 Tobacco/Smoking Status: Tobacco use Status Tobacco use date assessed 05/10/23 05/10/23 09:07 Patient Tobacco Use Status Never used Tobacco 05/10/23 09:07 e-Cigarette/Vaping Use Never Used 05/10/23 09:07 PHQ-9: PHQ-9 Score PHQ-9: Total score 0 05/10/23 09:07 Depression Screening Interpretation: Negative Thrive Assessment: Date of Thrive Assessment Date Thrive assessed 05/10/23 05/10/23 09:07 Currently or been in a relationship where the following occur: no concerns reported Const General: no acute distress, alert and awake Orientation/consciousness: patient oriented x3 HENMT Head: Yes normocephalic and Yes atraumatic Ears: external ears normal, TM's normal bilaterally and EAC's normal General nose exam: No nasal discharge present Face and sinus: Yes normal facial exam and Yes sinuses nontender Teeth and gingiva: dentition normal Throat: Yes posterior oropharynx normal and Yes tonsils normal (no TP congestion) Eyes Eyelids: Yes eyelids normal Conjunctivae: conjunctivae normal Pupils: Equal, round and reactive pupils present EOM: EOMs intact bilaterally Neck Neck: Yes no lymphadenopathy and Yes supple Thyroid: Thyroid normal Resp Auscultation: clear to auscultation bilaterally, no rales and no wheezes Cardio Rate: regular rate Rhythm: regular rhythm Heart sounds: no murmurs GI Palpation (GI): Soft to palpation, nontender and No hepatosplenomegaly present Auscultation: normal bowel sounds General: Yes no CVA tenderness Back/Spine/Pelvis Back: no CVA tenderness Thoracic/Lumbar Spine: thoracic and lumbar spine normal to inspection Skin Lesions: no lesions Rashes: no rashes Neuro General: patient oriented x3, moves all extremities, no focal motor deficits and CN's II-XI intact bilaterally Cranial nerves: Yes Equal, round and reactive pupils present Cognition (Neuro): normal cognition Gait exam (Neuro): Normal gait present Extrem General: Yes no clubbing, cyanosis or edema Results Reviewed Results Reviewed: Laboratory Tests 11/10/22 11/10/22 16:18 17:50 WBC 7.4 Hgb 11.7 L Hct 36.7 L Plt Count 367 ESR 7 Sodium 138 Potassium 4.2 Creatinine 0.78 Estimated GFR > 60 Random Glucose 85 Calcium 9.4 AST 14 ALT 14 Ur Specific [place] 1.020 Urine Protein Negative Urine Glucose (UA) Negative Urine Blood Negative Assessment and Plan Assessment & Plan (1) Annual physical exam: Code(s): Z00.00 - Encounter for general adult medical examination without abnormal findings Plan: Results of her labs done back in October 2022 reviewed and discussed with patient Will send her for some additional labs, per request, particularly to check her cholesterol level and Vitamin D level She is up-to-date with her cancer screenings - colonoscopy done in November 2022 and recommend repeat in 5 years (2027); mammogram last done in January 2023 and recommend repeat in 1 year; pap smear and quarter seamer exam done in March 2023 (2) Mild anemia: Code(s): D64.9 - Anemia, unspecified Plan: Advised again that she had mild anemia on her labs done back in October 2022 - H/H was at 11.7/36.7 Will recheck her CBC for follow up (3) Ulcerative colitis: Code(s): K51.90 - Ulcerative colitis, unspecified, without complications Qualifiers: Ulcerative colitis location: unspecified ulcerative colitis location Digestive disease complication type: without complication Qualified Code(s): K51.90 - Ulcerative colitis, unspecified, without complications Plan: Stable/controlled Is on Apriso 1.5 gm Q AM but she stopped taking this recently and is trying to eat healthier and is hoping that diet modification would help cut back on her need to take her Rx Follow up with GI as scheduled (4) Varicose veins of bilateral lower extremities with pain: Code(s): I83.813 - Varicose veins of bilateral lower extremities with pain Plan: Symptoms are likely due to venous insufficiency and she has been referred to vascular surgery for further evaluation and management (5) Insomnia: Code(s): G47.00 - Insomnia, unspecified Qualifiers: Insomnia type: unspecified Qualified Code(s): G47.00 - Insomnia, unspe cified Plan: Is most likely related to or at least exacerbated by her recent mood symptoms Reinforced sleep hygiene She is being started on a trial of Mirtazapine 7.5 mg Q HS - is advised that Mirtazapine can help with her sleep issues as well (6) Mood changes: Code(s): R45.86 - Emotional lability Plan: Discussed that it is likely that most of her symptoms discussed today with regards to her recent distractability and irritability may be related to her mood disorder brought about by her perimenopause state Have recommended a trial of low-dose Mirtazapine, which if it helps, should address her recent issues as well as help with her sleep Advised that we are going to start her on a low dose and if she feels that this is not enough in a month or so, she can call in and we can then adjust her dose accordingly - patient is agreeable to this Will start her today on Mirtazapine 7.5 mg Q HS (7) Overweight (BMI 25.0-29.9): Code(s): E66.3 - Overweight Plan: Reinforced diet/exercise as tolerated/lose weight Plan To return in 1 year for her next annual physical examination Orders: Orders Complete Blood Count Auto Diff Today K51.90 - Ulcerative colitis, unspecified, without complications, Z00.00 - Encounter for general adult medical examination without abnormal findings Lipid Panel Today E78.00 - Pure hypercholesterolemia, unspecified, Z00.00 - Encounter for general adult medical examination without abnormal findings TSH reflex Free T4 Today E78.00 - Pure hypercholesterolemia, unspecified, K51.90 - Ulcerative colitis, unspecified, without complications, Z00.00 - Encounter for general adult medical examination without abnormal findings Vitamin D 25-OH Total Today E55.9 - Vitamin D deficiency, unspecified, Z00.00 - Encounter for general adult medical examination without abnormal findings Vitamin B12 and Folate Today E53.8 - Deficiency of other specified B group vitamins, K51.90 - Ulcerative colitis, unspecified, without complications, Z00.00 - Encounter for general adult medical examination without abnormal findings Medications: New mirtazapine 7.5 mg PO BEDTIME 30 days 30 tabs 3RF Coding Level of Care Code Est Pt Prev Care 40-64y(17356) Diagnoses Annual physical exam Z00.00 Mild anemia D64.9 Ulcerative colitis without complications, unspecified location K51.90 Ulcerative colitis location: unspecified ulcerative colitis location Digestive disease complication type: without complication Varicose veins of bilateral lower extremities with pain I83.813 Insomnia, unspecified type G47.00 Insomnia type: unspecified Mood changes R45.86 Overweight (BMI 25.0-29.9) E66.3
[2023-05-10 09:02] VITALS: BP 116/78; PULSE 68; O2SAT 99; BMI 26.5
== END 2023-05-10 09:33 | disposition home or self-care (01) ==
PROVIDERS: Visit Provider Internal Medicine
DX: Z00.00 Encounter for general adult medical examination without abnormal findings (principal); D64.9 Anemia, unspecified; K51.90 Ulcerative colitis, unspecified, without complications; I83.813 Varicose veins of bilateral lower extremities with pain; G47.00 Insomnia, unspecified; R45.86 Emotional lability; E66.3 Overweight
CPT/HCPCS: 99396

== ENCOUNTER 2023-05-15 07:50 | Outpatient (REF) | payer OTHER, SELFPAY ==
[2023-05-15 08:07] LABS: MANUAL DIFF FLAG NO
[2023-05-15 09:24] LABS: Basophils Percent Auto 0.7 % (0-2); Eosinophils Absolute Auto 0.1 X10*3/uL (0.0-0.4); Hematocrit 37.3 % (37.0-47.0); Hemoglobin 11.8 g/dl (12.0-16.0); Imm Gran Abs Auto 0.01 X10*3/uL (0.00-0.03); Imm Gran Pct Auto 0.2 % (0.0-0.4); Lymphocytes Absolute Auto 1.6 X10*3/uL (1.2-4.9); Lymphocytes Percent Auto 26.1 % (20-40); Mean Corpuscular HGB Conc 31.6 g/dl (31.0-35.0); Mean Corpuscular Hemoglobin 26.5 pg (27.0-33.0); Mean Corpuscular Volume 83.8 fL (80.0-98.0); Mean Platelet Volume 10.3 fL (9.4-12.3); Monocytes Absolute Auto 0.5 X10*3/uL (0.1-1.2); Monocytes Percent Auto 7.7 % (2-11); Neutrophils Absolute Auto 3.8 x10*3/uL (2.0-8.3); Neutrophils Percent Auto 63.3 % (45-73); Platelet Count 396 X10*3/uL (160-400); Red Blood Count 4.45 X10*6/uL (4.20-5.50); Red Cell Distribution Width 13.5 % (11.0-16.0)
[2023-05-15 10:04] LABS: Cholesterol 182 mg/dL (<200); HDL Cholesterol 62 mg/dL (>40); LDL Cholesterol Calculated 107 mg/dL (<100); Triglycerides 67 mg/dL (<150)
[2023-05-15 10:09] LABS: TSH reflex Free T4 2.41 uIU/mL (0.32-4.0); Vitamin D 25-OH Total 25.8 ng/mL (>30)
[2023-05-15 10:20] LABS: Folate 14.7 ng/mL (> or = 4.0); Vitamin B12 802 pg/mL (200-900)
== END 2023-05-15 07:51 | disposition home or self-care (01) ==
LOC: HO.LAB 07:50
PROVIDERS: PCP Internal Medicine; Visit Provider Internal Medicine
DX: Z00.00 Encounter for general adult medical examination without abnormal findings (principal); E55.9 Vitamin D deficiency, unspecified; E53.8 Deficiency of other specified B group vitamins; K51.90 Ulcerative colitis, unspecified, without complications; E78.00 Pure hypercholesterolemia, unspecified
CPT/HCPCS: 36415; 80061; 82306; 82607; 82746; 84443; 85025

== ENCOUNTER 2023-06-05 09:24 | Outpatient (AMB) | payer OTHER, SELFPAY ==
[2023-06-05 09:26] VITALS: BMI 26.4
--- NOTE | 2023-06-05 09:26 | MHC.OFFVIS ---
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 Pt states pain and heaviness also more recently has new VV popping up. 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 Complaints include pain over varicosities, swelling of lower extremities, cramping, fatigue, and heaviness of the lower extremities. 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 It is noted more so in left leg. Of note we had treated her mother for previous venous disease Patient denies any previous venous surgery or injections. Patient denies any history of DVT/ PE. Patient denies any history of phlebitis. Trial of compression includes - [id number] They now present for vascular evaluation regarding their varicose veins. [facility] Medical History Insomnia Overweight (BMI 25.0-29.9) Fatigue History of uterine fibroid Ulcerative colitis Surgical History Hx of colonoscopy (~11/14/19) History of surgical procedure History of tooth extraction History of cervical polypectomy Family History (Updated 06/05/23 @ 09:33 by MORRIS Frey) Daughter Breast cancer, Onset Age: 31 Maternal Grandmother Cancer Mother Varicose veins of both lower extremities with pain Social History Housing: Apartment Alcohol intake: current Alcohol intake frequency: holidays/special occasions only Patient Tobacco Use Status: Never used Tobacco e-Cigarette/Vaping Use: Never Used Second Hand Smoke Exposure: No Special kali accommodation details: Restoration Current occupational status: employed Gender identity: Female Cognitive needs: No Hearing needs: No Vision needs: No Female Reproductive History Menstrual Age of Menarche: 12 Review of Systems Const Reports as per HPI ENT Reports no additional complaints Card Denies chest pain, Denies chest pain at rest and Denies chest pain with activity Resp Denies chest congestion and Denies cough GI Reports no additional complaints Musc Details: pain over varicosities, aching of lower extremities, swelling, cramping, heaviness and tiredness, itching Denies abnormal gait Skin/Breast Reports pruritus and Denies wounds Neuro Reports no additional complaints and Denies abnormal gait Psych Denies no additional complaints Physical Exam Vital Signs: BMI result Body Mass Index 26.4 Const General: cooperative, healthy appearing and comfortable Orientation/consciousness: oriented to person, oriented to place and oriented to time Neck Carotids: no bruits Chest Chest palpation & inspection: normal inspection of the chest and normal palpation of entire chest wall Resp Effort & Inspection: normal respiratory effort and able to speak in complete sentences Cardio Rate: regular rate Heart sounds: S1 normal heart sound present and S2 normal heart sound present Peripheral pulses: Peripheral pulses 2+ throughout GI Inspection: Yes normal to inspection Skin Other: +2 edema, multiple spider telangiectasias CEAP Classification C4 - skin color changes Ep - Etiology Primary As - superficial veins P - reflux General skin exam: dry skin Neuro General: oriented to person, oriented to place and oriented to time Extrem Right lower extremity: full ROM, normal capillary refill and edema Left lower extremity: full ROM, normal capillary refill and edema Psych Mental Status: mental status grossly normal Assessment & Plan Assessment & Plan (1) Varicose veins of left lower extremity with inflammation: Code(s): I83.12 - Varicose veins of left lower extremity with inflammation Plan: In short, the patient has evidence of venous insufficiency. I have discussed the pathophysiology with the patient. In addition I have provided informational material regarding venous disease to the patient. We have discussed conservative measures including compression, elevation, and exercise. I have also provided a handout regarding appropriate use of compression stockings and where to purchase good compression stockings as well. I have taken the liberty of ordering venous insufficiency testing with the patient. They will follow up with me after testing. The patient had an opportunity to ask questions regarding the treatment plan. All questions were answered. Imaging studies, laboratory studies and physical exam results were discussed and reviewed in detail. No major barriers to understanding were identified. The patient expressed understanding and agreement with the above treatment plan. The patient is aware they should contact our office by phone for worsening of the current condition or the appearance of new symptoms. Thank you for allowing me to participate in the vascular care of this patient. If you have any questions or concerns regarding the treatment for the above condition please do not hesitate to contact me. The office telephone contact is [phone]. This note is constructed using voice recognition software. While every effort has been made to ensure accuracy, flat lock machine operator errors may have been included. Thank you for allowing me to participate in the care of your patient. Yours sincerely, Darvin Chaney MD, FACS, R.P.V.I. Orders: Orders US venous duplex LE BI 1 Week I83.12 - Varicose veins of left lower extremity with inflammation Coding Level of Care Code New Pt Level 4 (91715) Diagnoses Varicose veins of left lower extremity with inflammation I83.12
== END 2023-06-05 10:02 | disposition home or self-care (01) ==
PROVIDERS: PCP Internal Medicine; Visit Provider Surgery Vascular Surgery
DX: I83.12 Varicose veins of left lower extremity with inflammation (principal)
CPT/HCPCS: 99203

== ENCOUNTER → 2023-06-05 09:24 | Outpatient (BNVA) | payer OTHER, SELFPAY | PROVIDERS: PCP Internal Medicine; Visit Provider Surgery Vascular Surgery ==

== ENCOUNTER 2023-06-28 08:26 | Outpatient (REF) | payer OTHER, SELFPAY ==
--- NOTE | ~2023-06-28 | US_ITS ---
EXAMINATION: US LOWER EXTREMITY VENOUS (REFLUX EXAM), BILATERAL CLINICAL INDICATION: Chronic venous insufficiency with lower extremity varicose veins and inflammation COMPARISON: None. TECHNIQUE: Color flow triplex imaging and compression Doppler was performed to evaluate both the deep and the superficial systems bilaterally. To evaluate the superficial system, the examination was performed in the upright position. Color-flow Doppler ultrasound and compression ultrasound were utilized. In addition, maneuvers were utilized to demonstrate reflux. FINDINGS: 1. DEEP VENOUS ULTRASOUND OF THE RIGHT LOWER EXTREMITY: Common Femoral Vein: Compressible, normal respiratory variation and augmented flow. Femoral Vein: Compressible, normal color flow and augmentation. Popliteal Vein: Compressible, normal augmentation. Deep Reflux: There is no evidence of reflux in the deep system in either the common femoral vein or the popliteal vein. There is no evidence of a Ross's cyst. 2. SUPERFICIAL ULTRASOUND WITH DOPPLER OF RIGHT LOWER EXTREMITY: GREAT SAPHENOUS VEIN: Saphenofemoral Junction: 0.7 cm; Reflux: 0 ms Proximal Thigh: 0.5 cm; Reflux: 0 ms Mid Thigh: 0.3 cm; Reflux: 0 ms Above Knee: 0.3 cm; Reflux: 0 ms At Knee: 0.3 cm; Reflux: 0 ms Below Knee: 0.2 cm; Reflux: 2720 ms Mid Calf: 0.1 cm; Reflux: 2600 ms Ankle: 0.1 cm; Reflux: 2792 ms DUPLICATED MEDIAL GREAT SAPHENOUS VEIN: Diameter: None imaged Reflux: NA DUPLICATED LATERAL GREAT SAPHENOUS VEIN: Diameter: None imaged Reflux: NA SMALL SAPHENOUS VEIN: Proximal: 0.2 cm; Reflux: 0 ms Distal: 0.2 cm; Reflux: 0 ms VEIN OF GIACOMINI: Size: NA Reflux: NA PERFORATORS: Location: None significant Size: NA Reflux: NA VARICOSITIES: Location: Proximal thigh, lateral knee and lateral mid calf Size: 0.1 to 0.3 cm Reflux: Ranging from 0 ms to 2932 ms 3. DEEP VENOUS ULTRASOUND OF THE LEFT LOWER EXTREMITY: Common Femoral Vein: Compressible, normal respiratory variation and augmented flow. Femoral Vein: Compressible, normal color flow and augmentation. Popliteal Vein: Compressible, normal augmentation. Deep Reflux: There is no evidence of reflux in the deep system in either the common femoral vein or the popliteal vein. There is no evidence of a Ross's cyst. 4. SUPERFICIAL ULTRASOUND WITH DOPPLER OF LEFT LOWER EXTREMITY: GREAT SAPHENOUS VEIN: Saphenofemoral Junction: 0.8 cm; Reflux: 0 ms Proximal Thigh: 0.6 cm; Reflux: 0 ms Mid Thigh: 0.2 cm; Reflux: 0 ms Above Knee: 0.2 cm; Reflux: 0 ms At Knee: 0.3 cm; Reflux: 0 ms Below Knee: 0.3 cm; Reflux: 0 ms Mid Calf: 0.2 cm; Reflux: 2796 ms Ankle: 0.2 cm; Reflux: 0 ms DUPLICATED MEDIAL GREAT SAPHENOUS VEIN: Diameter: 0.3 cm Reflux: None DUPLICATED LATERAL GREAT SAPHENOUS VEIN: Diameter: None imaged Reflux: NA SMALL SAPHENOUS VEIN: Proximal: 0.2 cm; Reflux: 0 ms Distal: 0.1 cm; Reflux: 0 ms VEIN OF GIACOMINI: Size: NA Reflux: NA PERFORATORS: Location: None significant Size: NA Reflux: NA VARICOSITIES: Location: None significant Size: NA Reflux: NA US/US venous duplex LE BI IMPRESSION: Right: Segmental areas of reflux in the right great saphenous vein within the calf. Greater saphenous vein is normal in caliber in this region. Scattered varicose veins as described above Left: Focal segmental area of reflux in the left great saphenous vein in the mid calf. No significant varicose veins.
== END 2023-06-28 08:27 | disposition home or self-care (01) ==
LOC: HO.US 08:26
PROVIDERS: PCP Internal Medicine; Visit Provider Surgery Vascular Surgery
DX: I83.12 Varicose veins of left lower extremity with inflammation (principal)
CPT/HCPCS: 93970

== ENCOUNTER 2023-07-31 08:50 | Outpatient (AMB) | payer OTHER, SELFPAY ==
[2023-07-31 08:56] VITALS: BMI 26.4
--- NOTE | 2023-07-31 08:56 | MHC.OFFVIS ---
Intake Vital Signs 07/31/23 08:56 Height 5 ft 4 in Weight 154 lb BMI 26.4 Intake Visit Reasons: FU Venous Doppler US Intake Note: Follow up US 06/28/2023 for bilateral LE VV, Left LE slightly worse than Right LE in pain and heaviness. Has worn compression socks more regularly and states they do help but still painful when she's not wearing them. 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 Accompanied by: Self / Same As Patient Allergies morphine [MORPHINE] Allergy (Intermediate, Verified 07/31/23 08:59) RASH, Hives sertraline Adverse Reaction (Unknown, Verified 07/31/23 08:59) Ulcerative Colitis flared seasonal Allergy (Mild, Uncoded 07/31/23 08:59) Sneezing HPI FU Venous Doppler US HPI Details Very pleasant 52-year-old patient presents for follow-up regarding lower extremity swelling. She has had no significant interval issues. She does note some mild improvement when using compression stocks. She now presents for follow-up with venous insufficiency testing. [facility] Medical History Insomnia Overweight (BMI 25.0-29.9) Fatigue History of uterine fibroid Ulcerative colitis Surgical History Hx of colonoscopy (~11/14/19) History of surgical procedure History of tooth extraction History of cervical polypectomy Family History Daughter Breast cancer, Onset Age: 31 Maternal Grandmother Cancer Mother Varicose veins of both lower extremities with pain Social History Housing: Apartment Alcohol intake: current Alcohol intake frequency: holidays/special occasions only Patient Tobacco Use Status: Never used Tobacco e-Cigarette/Vaping Use: Never Used Second Hand Smoke Exposure: No Special kali accommodation details: [employer] Current occupational status: employed Gender identity: Female Cognitive needs: No Hearing needs: No Vision needs: No Female Reproductive History Menstrual Age of Menarche: 12 Review of Systems Const All systems reviewed & are unremarkable except as noted in HPI and below Reports no additional complaints ENT Reports Normal hearing present Card Denies chest pain, Denies chest pain at rest, Denies chest pain with activity and Denies pedal edema Resp Denies cough GI Denies abdominal pain Musc Denies abnormal gait, Denies muscle cramps and Denies radiating pain into limb Skin/Breast Denies skin ulcer and Denies wounds Neuro Reports Normal hearing present and Denies abnormal gait Psych Reports no additional complaints Physical Exam Vital Signs: BMI result Body Mass Index 26.4 Const General: cooperative, healthy appearing and comfortable Orientation/consciousness: oriented to person, oriented to place and oriented to time HEENT Head: Yes normal to inspection Neck Neck: Yes normal visual inspection Carotids: no bruits Chest Chest palpation & inspection: normal inspection of the chest Resp Effort & Inspection: normal respiratory effort and able to speak in complete sentences Auscultation: clear to auscultation bilaterally, no crackles, no rales, no rhonchi and no wheezes Cardio Rate: regular rate Rhythm: regular rhythm Heart sounds: S1 normal heart sound present and S2 normal heart sound present Bruits: no carotid bruits Peripheral pulses: Peripheral pulses 2+ throughout GI Inspection: Yes normal to inspection Skin Wounds: no wounds Hair: normal Neuro General: oriented to person, oriented to place and oriented to time Cranial nerves: Yes CN's II-XII intact bilaterally and Yes Normal hearing present Cognition (Neuro): normal cognition Motor exam (neuro): 5/5 motor strength present throughout Extrem Other: venous exam: No significant superficial varicosities or spider telangiectasias, minimal edema General: No clubbing, No cyanosis and No edema Psych Appearance: grossly normal Mental Status: mental status grossly normal Speech and movement: Normal speech and movement present Results Reviewed Results Reviewed: Brief summary of venous insufficiency testing is as follows: right great saphenous vein: Positive at calf all right small saphenous vein: negative right accessory vein: none present left great saphenous vein: negative left small saphenous vein: negative left accessory vein: none present Please note there is no evidence of any venous aneurysms or significant tortuosity Assessment & Plan Assessment & Plan (1) Varicose veins of left lower extremity with inflammation: Code(s): I83.12 - Varicose veins of left lower extremity with inflammation Plan: In short patient is negative for any significant venous insufficiency. Would continue with compression, elevation and exercise. The patient can follow up with us on an as-needed basis. Thank you for allowing us to assist in his care. If there are questions or concerns please do not hesitate to contact us. Coding Level of Care Code Est Pt Level 3 (23916) Diagnoses Varicose veins of left lower extremity with inflammation I83.12
== END 2023-07-31 09:28 | disposition home or self-care (01) ==
PROVIDERS: PCP Internal Medicine; Visit Provider Surgery Vascular Surgery
DX: I83.12 Varicose veins of left lower extremity with inflammation (principal)
CPT/HCPCS: 99213

== ENCOUNTER → 2023-07-31 08:50 | Outpatient (BNVA) | payer OTHER, SELFPAY | PROVIDERS: PCP Internal Medicine; Visit Provider Surgery Vascular Surgery ==

== ENCOUNTER 2023-10-29 08:20 | Outpatient (AMB) | payer OTHER, SELFPAY ==
[2023-10-29 08:48] VITALS: BP 112/72; PULSE 68; TEMP 36.6; O2SAT 97; BMI 26.9
--- NOTE | 2023-10-29 08:48 | AM.OFFWIN_ITS ---
Intake Vital Signs 10/29/23 08:48 Height 5 ft 4 in Weight 157 lb BMI 26.9 BP 112/72 Blood Pressure Location Lt brachial Position Sitting Pulse 68 Pulse Source Pulse Oximeter Temp 97.8 F Temp Source Temporal Artery Scan Pulse Oximetry (%) 97 Oxygen Delivery Method Room Air Intake Visit Reasons: EP RT pinky toe Intake Note: pt is here today for rt pinky toe started several months ago Patient Tobacco Use Status: Never used Tobacco Allergies morphine [MORPHINE] Allergy (Intermediate, Verified 10/29/23 08:48) RASH, Hives sertraline Adverse Reaction (Unknown, Verified 10/29/23 08:48) Ulcerative Colitis flared seasonal Allergy (Mild, Uncoded 07/31/23 08:59) Sneezing Do you need a note to return to daycare/school/sports/work: No HPI HPI Comments History of Present Illness Details Patient presents to the walk-in today for sick visit Started with corn to the right 5th toe 3 months ago, applied [id number] corn treatment and states left her with a callus She trimmed the callus off and now the area is tender and open Applied bacitracin Pain when wearing shoes to the toe PFSH Medical History Insomnia Overweight (BMI 25.0-29.9) Fatigue History of uterine fibroid Ulcerative colitis Surgical History Hx of colonoscopy (~11/14/19) History of surgical procedure History of tooth extraction History of cervical polypectomy Family History Daughter Breast cancer, Onset Age: 31 Maternal Grandmother Cancer Mother Varicose veins of both lower extremities with pain Social History Housing: Apartment Alcohol intake: current Alcohol intake frequency: holidays/special occasions only Patient Tobacco Use Status: Never used Tobacco e-Cigarette/Vaping Use: Never Used Second Hand Smoke Exposure: No Special kali accommodation details: [employer] Current occupational status: employed Gender identity: Female Cognitive needs: No Hearing needs: No Vision needs: No Female Reproductive History Menstrual Age of Menarche: 12 Review of Systems Const All systems reviewed & are unremarkable except as noted in HPI and below Physical Exam Vital Signs: Last Vital Signs Temp 97.8 F 10/29/23 08:48 Pulse 68 10/29/23 08:48 BP 112/72 10/29/23 08:48 Pulse Ox 97 10/29/23 08:48 Oxygen Delivery Method Room Air 10/29/23 08:48 BMI result Body Mass Index 26.9 General: awake, alert, oriented. Answers questions appropriately. Fully engaged in examination. Skin: warm, dry, intact. small, circular area of exposed skin left toe. no redness, drainage, swelling, lymphangitis. HEENT: Normocephalic. Hearing intact. Cardiac: External chest normal in appearance. Respiratory: No cough, audible wheezing or stridor. Abdomen: without gross distension. MS: No obvious swelling or deformities. Neurological: Oriented to person, place, time and situation. Thought process intact. No gait abnormalities appreciated. Psychiatric: Appropriate mood and affect. Good judgment and insight. Assessment & Plan Assessment & Plan (1) Callus of toe: Code(s): L84 - Corns and callosities Plan Callus left 5th toe Patient advised to follow-up with Podiatry, if they require referral reach out to primary care doctor to facilitate Continue bacitracin and Band-Aid covering Follow-up with primary care doctor or return here for any new or worsening symptoms Coding Level of Care Code Est Pt Level 3 (78048) Diagnoses Callus of toe L84
== END 2023-10-29 09:41 | disposition home or self-care (01) ==
PROVIDERS: PCP Internal Medicine; Visit Provider Registered Nurse Emergency
DX: L84 Corns and callosities (principal)
CPT/HCPCS: 99213

== ENCOUNTER 2023-12-03 13:16 | Outpatient (REF) | payer OTHER, SELFPAY ==
--- NOTE | ~2023-12-03 | XR_ITS ---
EXAMINATION: XR SHOULDER, RIGHT CLINICAL INFORMATION: Pain in shoulder. Patient states pain in shoulder for 3 months, no trauma, pain getting worse. COMPARISON: 11/23/2017 TECHNIQUE: 4 views of the right shoulder. FINDINGS: Moderate degenerative changes in the acromioclavicular joint. Glenohumeral alignment is preserved. XR/XR shoulder RT min 2V IMPRESSION: Moderate degenerative changes in the acromioclavicular joint.
== END 2023-12-03 13:17 | disposition home or self-care (01) ==
LOC: HO.XRAY 13:16
PROVIDERS: PCP Internal Medicine; Visit Provider Internal Medicine
DX: M25.511 Pain in right shoulder (principal)
CPT/HCPCS: 73030

== ENCOUNTER 2023-12-18 14:20 | Outpatient (AMB) | payer OTHER, SELFPAY ==
[2023-12-18 14:21] VITALS: BP 128/86; PULSE 67; O2SAT 100
--- NOTE | 2023-12-18 14:21 | A.OFFPC_ITS ---
Vital Signs 12/18/23 14:21 Height 5 ft 4 in BMI Reason not done Patient refused/unable BP 128/86 Blood Pressure Location Lt brachial Position Sitting Pulse 67 Pulse Source Pulse Oximeter Pulse Oximetry (%) 100 Oxygen Delivery Method Room Air Intake Visit Reasons: Right Shoulder Pain Intake Note: c/o of right shoulder pain. pt c/o on going chest pain with no relief Telecommunication Lines Repairer Required: No Allergies morphine [MORPHINE] Allergy (Intermediate, Verified 12/18/23 15:05) RASH, Hives sertraline Adverse Reaction (Unknown, Verified 12/18/23 15:05) Ulcerative Colitis flared seasonal Allergy (Mild, Uncoded 12/18/23 15:05) Sneezing Medication List - Last Reconciled 12/18/23 by Sunday Gordon MD No Known Home Meds Tobacco use date assessed: 12/18/23 Dental Screening Dental Screen Date: 12/18/23 HPI Right Shoulder Pain HPI Details Patient comes in today for further evaluation of her right shoulder pain, which she states has been bothering her for a few weeks now She had right shoulder x-rays done a couple of weeks ago, which revealed (+) significant degenerative changes of the AC joint States that she has never had any injuries or issues with her right shoulder in the past and she is predominantly left-handed so she is even more confused as to how her right shoulder would have degenerative arthritis changes to this extent States that she has just been taking OTC Tylenol as needed with some relief as she cannot take any NSAIDs due to her history if ulcerative colitis Adds that she has also been experiencing recurrent sharp pains over her left anterior chest area for the past couple of days States that the symptoms would occur randomly and are not triggered by activity or exertion as they have occurred when she is sitting down or lying down States that the pains would often last for just a minute or two and gradually clear up and are not associated with any SOB, weakness or lightheadedness No nausea/vomiting, no abdominal pain No change in bowel habits noted [facility] Medical History Insomnia Overweight (BMI 25.0-29.9) Fatigue History of uterine fibroid Ulcerative colitis Surgical History Hx of colonoscopy (~11/14/19) History of surgical procedure History of tooth extraction History of cervical polypectomy Family History Daughter Breast cancer, Onset Age: 31 Maternal Grandmother Cancer Mother Varicose veins of both lower extremities with pain Social History Housing: Apartment Alcohol intake: current Alcohol intake frequency: holidays/special occasions only Patient Tobacco Use Status: Never used Tobacco e-Cigarette/Vaping Use: Never Used Second Hand Smoke Exposure: No Special kali accommodation details: Hinduism Current occupational status: employed Gender identity: Female Cognitive needs: No Hearing needs: No Vision needs: No Female Reproductive History Menstrual Age of Menarche: 12 Questionnaire PHQ-9 Over the last 2 weeks, how often have you been bothered by any of the following problems? 1. Little interest or pleasure in doing things: not at all 2. Feeling down, depressed, or hopeless: not at all 3. Trouble falling or staying asleep, or sleeping too much: not at all 4. Feeling tired or having little energy: not at all 5. Poor appetite or overeating: not at all 6. Feeling bad about yourself - or that you are a failure or have let yourself or your family down: not at all 7. Trouble concentrating on things, such as reading the newspaper or watching television: not at all 8. Moving or speaking so slowly that other people could have noticed. Or the opposite - being so fidgety or restless that you have been moving around a lot more than usual: not at all 9. Thoughts that you would be better off or of hurting yourself in some way: not at all Total score: 0 Depression Screening Interpretation: Negative Depression Screening Done: Yes 75388 - PHQ-9 Billing: Yes Source: Developed by Drs. Pato Garay, Madison Hilario, Ney Shelton and colleagues, with an educational desi from [employer]. Thrive Questionnaire Date Thrive assessed: 12/18/23 I am a: Patient What is your living situation today?: I have a steady place to live Within the past 12 months, did the food you bought not last and you didn't have the money to get more?: Never true Within the past 12 months, did you worry whether your food would run out before you got money to buy more?: Never true Do you have trouble paying for medicines?: No Do you have trouble getting transportation to medical appointments?: No Do you have trouble paying your heating and electricity bill?: No Do you have trouble taking care of your child, family member or friend?: No Do you have trouble with day-to-day activities such as bathing, preparing meals, shopping, managing finances, etc.?: No Are you currently unemployed and looking for a job?: No Are you interested in more education?: No Please select the resources that you would like help with: None Currently or been in a relationship where the following occur: no concerns reported THRIVE Score: 0 AUDIT C Alcohol Use Questionnaire (AUDIT-C) 1. How often do you have a drink containing alcohol?: Never 3. How often do you have six or more drinks on one occasion?: Never Total Score: 0 Score Reviewed/Action Taken: Yes PARRISH-7 AMB Questionnaire PARRISH-7 Date PARRISH - 7 assessed: 12/18/23 Feeling nervous, anxious, or on edge: 0 = Not at all Not being able to stop or control worryin = Not at all Worrying too much about different things: 0 = Not at all Trouble relaxin = Not at all Being so restless that it is hard to sit still: 0 = Not at all Becoming easily annoyed or irritable: 0 = Not at all Feeling afraid as if something awful might happen: 0 = Not at all Total PARRISH-7 score (0-4 normal; 5-9 mild; 10-14 moderate; 15-21 severe): 0 Source: Developed by Drs. Pato Graay, Madison Hilario, Ney Shelton and colleagues, with an educational desi from [employer]. Review of Systems Const Denies fatigue, Denies fever(s) and Denies headache(s) ENT Denies dysphagia, Denies dizziness, Denies headache(s), Denies neck pain, Denies odynophagia and Denies sore throat Card Reports as per HPI, Reports chest pain (recurrent, sharp - see HPI), Denies chest pain with activity, Denies syncope, Denies irregular heart rhythm, Denies palpitations and Denies dyspnea Resp Denies cough and Denies dyspnea GI Denies abdominal pain, Denies constipation, Denies dysphagia, Denies heartburn, Denies diarrhea, Denies nausea, Denies odynophagia and Denies vomiting Denies difficulty voiding, Denies nocturia and Denies dysuria Musc Reports as per HPI, Reports arthralgias (in the right shoulder - with sharp pains radiating into arms at times) and Denies neck pain Skin/Breast Denies rash Neuro Denies dizziness, Denies syncope and Denies headache(s) Endo Denies fatigue and Denies palpitations Physical exam (Primary Care) Vital Signs: Last Vital Signs Pulse 67 12/18/23 14:21 BP 128/86 12/18/23 14:21 Pulse Ox 100 12/18/23 14:21 Oxygen Delivery Method Room Air 12/18/23 14:21 Tobacco/Smoking Status: Tobacco use Status Tobacco use date assessed 12/18/23 12/18/23 14:22 Patient Tobacco Use Status Never used Tobacco 12/18/23 14:22 e-Cigarette/Vaping Use Never Used 12/18/23 14:22 PHQ-9: PHQ-9 Score PHQ-9: Total score 0 12/18/23 14:30 Depression Screening Interpretation: Negative Thrive Assessment: Date of Thrive Assessment Date Thrive assessed 12/18/23 12/18/23 14:22 Currently or been in a relationship where the following occur: no concerns reported Const General: no acute distress and alert HENMT Throat: Yes posterior oropharynx normal and Yes tonsils normal (no TP congestion) Neck Neck: Yes no lymphadenopathy and Yes supple Thyroid: Thyroid normal Chest Chest palpation & inspection: normal inspection of the chest and no tenderness Resp Auscultation: clear to auscultation bilaterally, no rales and no wheezes Cardio Rate: regular rate Rhythm: regular rhythm Heart sounds: no murmurs GI Palpation (GI): Soft to palpation and nontender Auscultation: normal bowel sounds Skin Rashes: no rashes Extrem General: Yes no clubbing, cyanosis or edema Right upper extremity: shoulder/upper arm Details: tenderness Location: of the A-C joint; no swelling Assessment and Plan Assessment & Plan (1) Primary osteoarthritis, right shoulder: Code(s): M19.011 - Primary osteoarthritis, right shoulder Plan: Patient continues to experience increased pain in her right shoulder often and states that she has trouble sleeping at night when her shoulder pain flares up Is currently just taking some OTC Tylenol PRN with some relief States that she cannot take NSAIDs due to her Hx of ulcerative colitis X-rays of the shoulder done a couple of weeks ago revealed (+) moderate degenerative changes in the acromioclavicular joint Discussed options at this point, including physical therapy and orthopedics referral with possible cortisone injection if appropriate - patient opted to see orthopedics and referral is done (2) Chest pain: Code(s): R07.9 - Chest pain, unspecified Qualifiers: Chest pain type: unspecified Qualified Code(s): R07.9 - Chest pain, unspecified Plan: Patient states that she has been experiencing on and off sharp pains over her left to mid chest area, corresponding to mostly where her heart is located Notes that the pains come and go randomly and are not related with activity or exertion; are also not associated with any SOB, lightheadedness or dizziness and often last for just a minute or two Advised that if her symptoms continue to recur, we can consider sending her for some cardiac work ups, including EKG, labs as well as stress testing, since she has Hx of UC and both ulcerative colitis and Crohn's disease are associated with an increased risk of atherosclerotic cardiovascular diseases, cerebrovascular accidents, premature coronary artery disease, and atrial fibrillation Patient would like to hold off on these for now and states that she will call f or the orders if her symptoms continue to recur (3) Ulcerative colitis: Code(s): K51.90 - Ulcerative colitis, unspecified, without complications Qualifiers: Ulcerative colitis location: unspecified ulcerative colitis location Digestive disease complication type: without complication Qualified Code(s): K51.90 - Ulcerative colitis, unspecified, without complications Plan: Stable/controlled Patient was on Apriso 1.5 gm Q AM in the past but she stopped taking this last year and has been trying to eat healthier and is hoping that diet modification w ould help cut back on her need to take any Rx Follow up with GI as scheduled Plan To return as scheduled in May 2024 for her annual physical examination Orders: Referrals Orthopedics Referral M19.011 - Primary osteoarthritis, right shoulder Coding Level of Care Code Est Pt Level 3 (33360) Diagnoses Primary osteoarthritis, right shoulder M19.011 Chest pain, unspecified type R07.9 Chest pain type: unspecified Ulcerative colitis without complications, unspecified location K51.90 Ulcerative colitis location: unspecified ulcerative colitis location Digestive disease complication type: without complication
== END 2023-12-18 15:47 | disposition home or self-care (01) ==
PROVIDERS: PCP Internal Medicine; Visit Provider Internal Medicine
DX: M19.011 Primary osteoarthritis, right shoulder (principal); R07.9 Chest pain, unspecified; K51.90 Ulcerative colitis, unspecified, without complications
CPT/HCPCS: 99213

== ENCOUNTER 2024-01-03 15:33 | Outpatient (REF) | payer OTHER, SELFPAY ==
[2024-01-04 05:45] LABS: CT PCR NOT DETECTED (Not Detect.); NG PCR NOT DETECTED (Not Detect.)
[2024-01-04 11:14] LABS: Bacterial Vaginosis PCR NEGATIVE (Negative); Candida Group PCR NOT DETECTED (Not Detect); Candida glab krusei PCR NOT DETECTED (Not Detect); Trichomonas vaginalis PCR NOT DETECTED (Not Detect)
== END 2024-01-03 15:34 | disposition home or self-care (01) ==
LOC: HO.LNP 15:33
PROVIDERS: PCP Internal Medicine; Visit Provider Advanced Practice Midwife
DX: R10.2 Pelvic and perineal pain (principal); R31.9 Hematuria, unspecified; D21.9 Benign neoplasm of connective and other soft tissue, unspecified
CPT/HCPCS: 0352U; 0353U; 81003; 87086; 87147

== ENCOUNTER 2024-01-03 15:33 | Outpatient (AMB) | payer OTHER, SELFPAY ==
[2024-01-03 15:33] VITALS: BP 116/70; BMI 27.6
--- NOTE | 2024-01-03 15:33 | MHC.OFFVIS ---
Vital Signs 01/03/24 15:33 Height 5 ft 4 in Weight 161 lb BMI 27.6 BP 116/70 Intake Visit Reasons: pain(will discuss w/provider) Intake Note: Feeling very congested, dull and pressure vaginal area not sure how to describe it, but states pain has gotten worst in the last month, has been having clear mucus discharge. Manager Custom Required: No Information Interpreted: non-clinical & clinical Floatman: Floatman Present (Jacob) Allergies morphine [MORPHINE] Allergy (Intermediate, Verified 01/03/24 15:38) RASH, Hives sertraline Adverse Reaction (Unknown, Verified 01/03/24 15:38) Ulcerative Colitis flared seasonal Allergy (Mild, Uncoded 01/03/24 15:38) Sneezing Is last menstrual period known: Yes Last menstrual period: 12/15/23 Post menopausal: No Patient : No HPI Comments Details: Patient is here today with concerns that she is having some pelvic discomfort felt this pressure for several months, I feel congested and full . She denies any vaginal itching, burning or odor. She admits to clear discharge. Not currently sexually active. She reports her periods have been a bit irregular, spacing at times, one close cycle last February. History of large fibroids was planning to go to [facility] for consult for uterine ablation but did not follow through due to having issues with her legs. [facility] Medical History Insomnia Overweight (BMI 25.0-29.9) Fatigue History of uterine fibroid Ulcerative colitis Surgical History Hx of colonoscopy (~11/14/19) History of surgical procedure History of tooth extraction History of cervical polypectomy Family History Daughter Breast cancer, Onset Age: 31 Maternal Grandmother Cancer Mother Varicose veins of both lower extremities with pain Social History Housing: Apartment Alcohol intake: current Alcohol intake frequency: holidays/special occasions only Patient Tobacco Use Status: Never used Tobacco e-Cigarette/Vaping Use: Never Used Second Hand Smoke Exposure: No Special kali accommodation details: Mormonism Patient : No Current occupational status: employed Gender identity: Female Cognitive needs: No Hearing needs: No Vision needs: No Female Reproductive History Menstrual Age of Menarche: 12 Duration of menses: 3-5 days Date of last menstrual period: 12/15/23 control method: none Total pregnancies: 1 Full term: 1 Number of Living Children: 1 Date of last pap smear: 12/27/21 (negative) History of abnormal pap smear: Yes (2011 [facility]) Date of Mammogram: 01/17/23 Review of Systems Const All systems reviewed & are unremarkable except as noted in HPI and below Physical Exam Vital Signs: Last Vital Signs BP 116/70 01/03/24 15:33 BMI result Body Mass Index 27.6 Const General: cooperative, healthy appearing and no acute distress Orientation/consciousness: patient oriented x3 GI Inspection: Yes normal to inspection Palpation (GI): Soft to palpation and Other GI palpation findings present (Nontender) Rectal Exam - Female: visual inspection normal General: Yes bladder normal to palpation External Female Exam: normal appearance of the urethra Speculum Exam - Vagina: normal appearance of the vagina, normal palpation and normal vaginal discharge Speculum Exam - Cervix: normal appearance of the cervix and normal palpation Bimanual exam- vagina & uterus: normal bimanual exam, normal palpation, bladder normal to palpation, normal palpation, non-tender and enlarged (Enlarge the size of a cantaloupe) Bimanual Exam- Adnexa, other: normal adnexae Neuro General: patient oriented x3 Results AMB Urinalysis, Automated UA Leukoctes 0 Keesha/uL Last Edit by MORRIS Padron on 01/03/24 16:01 UA Nitrite Negative Last Edit by MORRIS Padron on 01/03/24 16:01 UA Urobilinogen 0 mg/dL Last Edit by MORRIS Padron on 01/03/24 16:01 UA Protein 0 mg/dL Last Edit by MORRIS Padron on 01/03/24 16:01 UA pH 5.5 Last Edit by MORRIS Padron on 01/03/24 16:01 UA Blood 0.5 Daniel/uL Last Edit by MORRIS Padron on 01/03/24 16:01 UA Specific [place] 1.030 Last Edit by MORRIS Padron on 01/03/24 16:01 UA Ketone Negative Last Edit by MORRIS Padron on 01/03/24 16:01 UA Bilirubin 0 mg/dL Last Edit by MORRIS Padron on 01/03/24 16:01 UA Glucose 0 mg/dL Last Edit by MORRIS Padron on 01/03/24 16:01 Assessment & Plan Assessment & Plan (1) Pelvic pressure in female: Code(s): R10.2 - Pelvic and perineal pain Category: Medical (2) Fibroids: Code(s): D21.9 - Benign neoplasm of connective and other soft tissue, unspecified Plan Discussed: Plan pelvic ultrasound recheck fibroids, await for a results to decide whether she will need a referral to Interventional Radiology again or consult with a turret lathe tender/MD specialist. Comfort measures- may try Tylenol, and/or a heating pad, if any severe pain or pain that is persistent to report to the emergency room for immediate evaluation. BV panel, and GC chlamydia obtained. Urinalysis revealed blood plan sent for culture. Encouraged to hydrate well 10 glasses of fluid a day. Continue to monitor cycles if less than 21 days apart notify the office. Her cycle tracker reviewed today reveals most cycles are between 24 to 40 +days apart. All of her questions and concerns were addressed to the best of my ability and shared decision making. She is agreeable to the plan of care. This note is constructed using voice recognition software. 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 Orders: Orders AMB Urinalysis Automated Today R10.2 - Pelvic and perineal pain CT NG by PCR Today R10.2 - Pelvic and perineal pain Urine Culture Today R31.9 - Hematuria, unspecified Bacterial Vaginosis Panel Today R10.2 - Pelvic and perineal pain US pelvic and transvaginal Today D21.9 - Benign neoplasm of connective and other soft tissue, unspecified, R10.2 - Pelvic and perineal pain Coding Level of Care Code Est Pt Level 4 (81346) Diagnoses Pelvic pressure in female R10.2 Fibroids D21.9
--- OUTSIDE RECORDS SUMMARY | 2024-01-03 15:36 | XMS_ITS | Patient Health Record ---
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 Name Role Phone Sunday Gordon MD Primary Care Provider Pato Young [phone] ALLERGIES Allergen (clinical drug ingredient) Drug/Non Drug Allergy documented on EMR Reaction Allergy Type Onset Date Status morphine Morphine Sulfate Unknown Drug Allergy Active REASON FOR REFERRAL No Information IMMUNIZATIONS Vaccine Route Administration Date Status Comme nts Influenza Unknown 05/08/2018 Administered Influenza Unknown 08/13/2019 Administered SOCIAL HISTORY Sex Assigned At : Social History Observation Description Sex Assigned At Unknown Alcohol Screen Question Answer Notes Did you have a drink contain ing alcohol in the past year? Yes How often did you have a dri nk containing alcohol in the past year? Never (0 point) How many drinks did you have on a typical day when you were drinking in the past year? 1 or 2 drinks (0 point) How often did you have 6 or more drinks on one occasion in the past year? 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) Active confirmed [id number] Problem Family history of colon cancer (Z80.0) Active confirmed 906773518 Problem Ulcerative rectosigmoiditis without complication (K51.30) Active confirmed 98003107 Problem Abdominal pain, right upper quadrant (R10.11) Active confirmed 868237385 Problem 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) Active confirmed 76159658 Problem Left upper quadrant abdominal pain (R10.12) Active confirmed 693550716 VITAL SIGNS Temperature 97.5 degrees Fahrenheit 09/19/2023 Blood pressure diastolic 00 mm Hg 09/19/2023 Height 64.5 in 09/19/2023 Blood pressure systolic 000 mm Hg 09/19/2023 Weight 156 lbs 09/19/2023 BMI 26.36 kg/m2 09/19/2023 Encounters Encounter Location Date Provider Diagnosis [facility] [address] [place] [address] 03/13/2023 Pato Lopez 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 and Left upper quadrant abdominal pain R10.12 [facility] [address] [place] [address] 09/19/2023 Pato Lopez 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 and Family history of colon cancer Z80.0 ASSESSMENTS Encounter Date Diagnosis Assessment Notes Treatment Notes Treatment Clinical Notes 03/13/2023 Ulcerative rectosigmoiditis without complication (ICD-10 - K51.30) Continue the 4 mesalamine every day 03/13/2023 Left upper quadrant abdominal pain (ICD-10 - R10.12) Try using 1 Famotidine for 2-4 weeks, and then use just as needed for the left upper abdominal discomfort 09/19/2023 Family history of colon cancer (ICD-10 - Z80.0) 09/19/2023 Ulcerative rectosigmoiditis without complication (ICD-10 - K51.30) 03/13/2023 Other Repeat colonoscopy in 2024 PLAN OF TREATMENT Pending Test Test Name Order Date CHEM 7 PROFILE 12/06/2012 CHEM 7 PROFILE 02/15/2018 CHEM 7 PROFILE 10/25/2021 CHEM 7 PROFILE 10/17/2016 ELECTROLYTES 06/29/2014 BUN 06/29/2014 CREATININE 06/29/2014 LIVER PROFILE 10/17/2016 LIVER PROFILE 12/06/2012 LIVER PROFILE 06/29/2014 LIVER PROFILE 03/13/2023 LIVER PROFILE 02/15/2018 LIVER PROFILE 10/25/2021 CRP 02/15/2018 CRP 10/25/2021 CRP 10/17/2016 CRP 06/29/2014 CBC w DIFF 10/25/2021 CBC w DIFF 10/17/2016 CBC w DIFF 12/06/2012 CBC w DIFF 06/29/2014 CBC w DIFF 03/13/2023 CBC with MANUAL DIFFERENTIAL 02/15/2018 SED RATE (ESR) 06/29/2014 SED RATE (ESR) 02/15/2018 SED RATE (ESR) 10/25/2021 SED RATE (ESR) 10/17/2016 SED RATE (ESR) 12/06/2012 CLOSTRIDIUM DIFF TOXIN A&B (C DIFF) 09/14 CLOSTRIDIUM DIFF TOXIN A&B (C DIFF) 01/2018 CLOSTRIDIUM DIFF TOXIN A&B (C DIFF) 02/2017 STOOL WBC 02/15/2018 STOOL WBC 10/17/2016 GIARDIA AG, STOOL EIA 02/15/2018 GIARDIA AG, STOOL EIA 10/17/2016 OVA & PARASITES (O&P) 02/15/2018 OVA & PARASITES (O&P) 10/17/2016 CULTURE, STOOL 02/15/2018 CULTURE, STOOL 10/06/2014 CULTURE, STOOL 10/17/2016 Future Test Test Name Order Date COLONOSCOPY 10/30/2014 COLONOSCOPY 11/05/2019 Next Appt Details Provider Name:Pato Luz Lopez , 06/19/2024 09:00:00 AM, [address] [place] [address], [address], [place], [address], Insurance Providers Payer Name Payer Address Payer Phone Subscriber Number Group Number Insured Name Patient Relationship to Insured Coverage Start Date Coverage End Date [employer] [place] [address] [address] [place] [address] [id number] DARYL SIMENTALTA Self - patient is the insured MEDICAL (GENERAL) HISTORY Medical History History ICD Code Ulcerative colitis diagnosed at age 17- colonoscopy in 06/2009-colitis in proximal rectum and sigmoid-all bx neg for dysplasia. Started Delzicol in 11/2012. Kidney stones Denies OR,DM,CVA,Lung disease, renal dis ease EGD in 07/2011-[facility], no sig es ophgitis nor Garcia's, gastric biopsies were negative for H.pylori Neg. abd U/S in 2010 Colonoscopy 12/2014--this rev ealed evidence of some colitis in the left colon at approximately 50 cm and the distal rectum--biopsies throughout the colon were negative for dysplasia--she was treated with a course of prednisone in the fall, spring, and 02/2018 Heart murmur Uterine fibroid ablation Colonoscopy 11/2019 revealed minimal distal proctitis. The remainder of the proximal rectum and entire colon appeared normal. All of the biopsies throughout the colon were negative for dysplasia. There was no evidence of any polyps. Normal abdominal ultrasound in November 3 Surgical History Surgery Date(Month/Year)
== END 2024-01-03 16:11 | disposition home or self-care (01) ==
LOC: HO.HWS 15:33
PROVIDERS: PCP Internal Medicine; Visit Provider Advanced Practice Midwife
DX: R10.2 Pelvic and perineal pain (principal); D21.9 Benign neoplasm of connective and other soft tissue, unspecified
CPT/HCPCS: 99214

== ENCOUNTER 2024-01-11 11:11 | Outpatient (REF) | payer OTHER, SELFPAY ==
--- NOTE | ~2024-01-11 | US_ITS ---
EXAMINATION: ULTRASOUND PELVIC, COMPLETE CLINICAL INFORMATION: Mild neoplasm of connective tissue. COMPARISON: Pelvic ultrasound March 22, 2023 TECHNIQUE: Transvaginal: Used to better visualize pelvic structures Transabdominal: Not adequate for visualization Spectral Doppler and color Doppler exam was utilized. LMP: 12/15/2023 FINDINGS: UTERUS: Uterus measures 10.4 x 6.6 x 7.2 cm. Total uterine volume 259 mL. Endometrial thickness 0.4 cm. Nabothian cyst of cervix. There are 4 uterine fibroids: No significant change in uterine fibroid since prior study. No new fibroids. 1. Fundal anterior 5 x 4.3 x 4.5 cm. Previous measurement 5.9 x 5.1 x 4.2 cm. 2. Anterior body. 2.2 x 2.5 x 2.3 cm. Previous measurement 3.6 x 2.8 x 3.4 cm. 3. Posterior body. 1.7 x 1.8 x 1.7 cm. Previous measurement 1.4 x 1.7 x 1.3 cm. 4. Posterior body. 3.3 x 2.5 x 2.7 cm. Previous 2.7 x 2.2 x 2.6 cm. ADNEXA: Right adnexa: Right ovary not visualized. Left adnexa: Ovarian vascularity:Doppler demonstrates both arterial and venous vascular flow in the left ovary. No evidence of ovarian torsion. Left Ovary: 2.9 x 2.1 x 2.2 cm. Volume 70 mL. Previous measurement 3.6 x 2.6 x 2.5 cm. Cul-de-sac: No Fluid US/US pelvic and transvaginal IMPRESSION: 1. Multiple uterine fibroids. No significant change since prior study. 2. Right ovary not visualized. Left ovary is normal.
== END 2024-01-11 11:12 | disposition home or self-care (01) ==
LOC: HO.US 11:11
PROVIDERS: PCP Internal Medicine; Visit Provider Advanced Practice Midwife
DX: D21.9 Benign neoplasm of connective and other soft tissue, unspecified (principal); R10.2 Pelvic and perineal pain
CPT/HCPCS: 76830; 76856

== ENCOUNTER 2024-02-08 08:00 | Outpatient (AMB) | payer OTHER, SELFPAY ==
--- NOTE | 2024-02-08 08:15 | A.OFFVIS_ITS ---
Vital Signs 02/08/24 08:17 Height 5 ft 4 in Weight 161 lb BMI 27.6 Handedness Left Intake Visit Reasons: New Prob - RT Shoulder Pain Intake Note: Caitlyn is a 51 year old left hand dominant female who presents today for a evaluation of her right shoulder pain. Patient reports ongoing pain for about 5 months. Her pain is a 2 out of 10 on the pain scale. She states that her pain is all over her shoulder and it radiates up to her neck which makes her right side of her face numb. Pain is worse when sleeping on it, lifting and extending her arm out. No hx of taking any medications for the pain. Allergies morphine [MORPHINE] Allergy (Intermediate, Verified 02/08/24 08:17) RASH, Hives sertraline Adverse Reaction (Unknown, Verified 02/08/24 08:17) Ulcerative Colitis flared seasonal Allergy (Mild, Uncoded 01/03/24 15:38) Sneezing HPI HPI New Prob - RT Shoulder Pain: Details: 53-year-old left hand dominant female who presents in the office today for an evaluation of right shoulder pain. The patient was seen by her PCP on 12/18/2023 with a complaint of right shoulder pain which began about a few weeks prior, in 11/2023. X-rays were done prior to presentation to her PCP. She denied any injury. She reported the use of Tylenol with mild relief. ? ? While in the office today, the patient reports ongoing pain for about 5 months, since 08/2023. She claims her pain is a 2/10 in the office. She states her pain is throughout the entire right shoulder with radiation to her neck. She reports this makes the right side of her face numb. She confirms an increase in pain when sleeping on the right shoulder and lifting or extending the right upper extremity outwards. She denies any prior use of medication for pain.? ? Patient is unable to take NSAIDs due to a history of ulcerative colitis.?? [facility] Medical History Insomnia Overweight (BMI 25.0-29.9) Fatigue History of uterine fibroid Ulcerative colitis Surgical History Hx of colonoscopy (~11/14/19) History of surgical procedure History of tooth extraction History of cervical polypectomy Family History Daughter Breast cancer, Onset Age: 31 Maternal Grandmother Cancer Mother Varicose veins of both lower extremities with pain Social History Housing: Apartment Alcohol intake: current Alcohol intake frequency: holidays/special occasions only Patient Tobacco Use Status: Never used Tobacco e-Cigarette/Vaping Use: Never Used Second Hand Smoke Exposure: No Special kali accommodation details: Confucianism Current occupational status: employed Gender identity: Female Cognitive needs: No Hearing needs: No Vision needs: No Female Reproductive History Menstrual Age of Menarche: 12 Review of Systems Const All systems reviewed & are unremarkable except as noted in HPI and below Physical Exam Vital Signs: BMI result Body Mass Index 27.6 Const General: cooperative and no acute distress Orientation/consciousness: patient oriented x3 Resp Effort & Inspection: normal respiratory effort and able to speak in complete sentences Cardio Peripheral pulses: Peripheral pulses 2+ throughout Skin General skin exam: no rashes or lesions noted Neuro General: patient oriented x3 Extrem Other: Right shoulder: Normal to inspection. No ecchymosis, erythema, or edema. Full shoulder ROM in all planes with pain past 90 degrees of forward flexion and abduction. Pain with reaching behind her back.?Pain with cross-body reach. 4/5 strength with empty can. Negative drop arm. NVI.? ? Patient endorses numbness and tingling in her right cheek, which radiated from the cheek down the neck into the right upper extremity stopping at the right elbow.? Office Procedures Joint Injection/Drain Joint Injection/Drain Primary Site: right shoulder Prep: site was prepped using aseptic technique, ethochloride spray was applied and injection warnings given Injected: 80 mg of, DepoMedrol, with 8 mL of (2% plain lido ) and in the subcromial space Approach Used: posterolateral Procedure: The patient tolerated the procedure well, but had some pain with the injection and there was some relief with the local anesthesia Coding 29516 - Large joint Procedure code (CPT) selection complete Assessment & Plan Assessment & Plan (1) Painful arc syndrome of right shoulder: Code(s): M75.101 - Unspecified rotator cuff tear or rupture of right shoulder, not spec ified as traumatic Category: Medical Plan Ms. Cespedes is a 53-year-old left hand dominant female who presents in the office today for an evaluation of right shoulder pain. The patient was seen by her PCP on 12/18/2023 with a complaint of right shoulder pain which began about a few weeks prior, in 11/2023. X-rays were done prior to presentation to her PCP. She denied any injury. She reported the use of Tylenol with mild relief. ? ? While in the office today, the patient reports ongoing pain for about 5 months, since 08/2023. She claims her pain is a 2/10 in the office. She states her pain is throughout the entire right shoulder with radiation to her neck. She reports this makes the right side of her face numb. She confirms an increase in pain when sleeping on the right shoulder and lifting or extending the right upper extremity outwards. She denies any prior use of medication for pain.? ? Patient is unable to take NSAIDs due to a history of ulcerative colitis.? ? Right-sided numbness and tingling: ? The patient endorses numbness and tingling that extends from her right cheek into the neck traveling down the right upper extremity ending at the right elbow. She will be referred to Physiatry for further evaluation of the right- sided numbness and tingling. ? ? Right shoulder: ? The patient was offered a cortisone injection in the right shoulder with 80 mg of DepoMedrol. The patient was explained the risks, benefits, and alternatives to receiving this injection. After receiving consent for the injection, the patient had the procedure done while in the office today. The patient tolerated the procedure well with no complications.? ? Follow-up will be PRN, or sooner if needed. ? ? X-rays of the right shoulder, obtained on 12/03/2023, revealed: Moderate degenerative changes in the acromioclavicular joint.? Patient Instructions: Scribed by Linh Frederick medical office clerk, for Danna Coon PA-C on 02/08/2024 at 8:11 am, EST.? Coding Level of Care Code Est Pt Level 4 (92055) Diagnoses Painful arc syndrome of right shoulder M75.101 CPT Codes Coding - 67681 Large joint: 74242 - Large joint ([id number])
[2024-02-08 08:17] VITALS: BMI 27.6
== END 2024-02-08 08:40 | disposition home or self-care (01) ==
PROVIDERS: PCP Internal Medicine; Visit Provider Physician Assistant
DX: M75.101 Unspecified rotator cuff tear or rupture of right shoulder, not specified as traumatic (principal)
CPT/HCPCS: 20610; 99213

== ENCOUNTER → 2024-02-08 08:00 | Outpatient (BNVA) | payer OTHER, SELFPAY | PROVIDERS: PCP Internal Medicine; Visit Provider Physician Assistant | DX: M75.101 Unspecified rotator cuff tear or rupture of right shoulder, not specified as traumatic (principal) | CPT/HCPCS: 20610; J1010 ==

== ENCOUNTER 2024-02-20 13:36 | Outpatient (REF) | payer OTHER, SELFPAY ==
--- NOTE | ~2024-02-20 | MM_ITS ---
EXAMINATION: MM DIAGNOSTIC DIGITAL BREAST TOMOSYNTHESIS, BILATERAL US BREAST LIMITED, RIGHT MAMMOGRAPHY: CLINICAL INFORMATION: Due for yearly. Also follow-up probable benign smooth nodule versus complicated cyst 8:00 axis right breast, 6 cm from the nipple. If stable, this will establish a two-year stability and hence benignity. COMPARISON: Mammography: 01/03/2022, 03/04/2021, 09/13/2018, 07/24/2014 (baseline); right breast ultrasound 01/17/2023, 07/19/2022, 01/03/2022. TECHNIQUE: Digital breast tomosynthesis is performed in both the craniocaudal and mediolateral oblique views along with computer-aided detection (CAD). Synthesized 2D images are generated from the tomosynthesis. FINDINGS: The breasts are heterogeneously dense, which may obscure small masses (ACR BI-RADS breast composition Category c). The parenchymal pattern is similar to prior exams and there is no developing density or architectural abnormality or significant mass. There are scattered bilateral minor asymmetries similar to prior studies. No suspicious grouped calcifications. There is no axillary or skin abnormality. ULTRASOUND: CLINICAL INFORMATION: 6 month (final) Follow-up probably benign complicated cyst versus smooth nodule 8:00 axis right breast, 6 cm from the nipple. COMPARISON: 01/17/2023, 07/19/2022, 01/03/2022. TECHNIQUE: Targeted sonographic evaluation was performed using a high frequency linear transducer. Selected archived documentation. FINDINGS: RIGHT BREAST: -There is a stable and unchanged wider than tall circumscribed oval mass versus complicated cyst measuring 5 x 4 x 7 mm, with possible mild through transmission and edge shadowing. No internal or peripheral color Doppler flow. No surrounding parenchymal or fat changes. This finding is stable from 2021 and benign. No further follow-up recommended. MM/MM tomosynthesis diagnostic BI IMPRESSION: -There are no findings suspicious for malignancy in either breast. -There are stable benign findings. -Complicated cyst versus oval mass measuring 7 mm in the right breast at the 8:00 axis, is stable over two-year period and hence benign. No further follow-up is deemed necessary. -Recommend this patient return to routine annual screening. OVERALL ASSESSMENT: Mammography: BI-RADS 2 - Benign Findings Ultrasound: BI-RADS 2 - Benign Findings RECOMMENDATION: 1 year F/U This patient's information was entered into a reminder system with a target due date for their next mammogram.
== END 2024-02-20 13:37 | disposition home or self-care (01) ==
LOC: HO.MAMMO 13:36
PROVIDERS: PCP Internal Medicine; Visit Provider Internal Medicine
DX: N63.13 Unspecified lump in the right breast, lower outer quadrant (principal)
CPT/HCPCS: 76642; 77062; 77066

== ENCOUNTER → 2024-02-20 14:00 | Outpatient (BNV) | payer OTHER, SELFPAY | PROVIDERS: PCP Internal Medicine; Visit Provider Radiology Diagnostic Radiology | DX: R92.8 Other abnormal and inconclusive findings on diagnostic imaging of breast (principal); N63.13 Unspecified lump in the right breast, lower outer quadrant | CPT/HCPCS: 76642; 77062; 77066 ==

== ENCOUNTER 2024-02-28 08:20 | Outpatient (AMB) | payer OTHER, SELFPAY ==
--- NOTE | 2024-02-28 08:47 | A.OFFVIS_ITS ---
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 She was recently referred to [facility] and has an appointment April [address] Pena for a surgical consult. [facility] Medical History Insomnia Overweight (BMI 25.0-29.9) Fatigue History of uterine fibroid Ulcerative colitis Surgical History Hx of colonoscopy (~11/14/19) History of surgical procedure History of tooth extraction History of cervical polypectomy Family History Daughter Breast cancer, Onset Age: 31 Maternal Grandmother Cancer Mother Varicose veins of both lower extremities with pain Social History Housing: Apartment Alcohol intake: current Alcohol intake frequency: holidays/special occasions only Patient Tobacco Use Status: Never used Tobacco e-Cigarette/Vaping Use: Never Used Second Hand Smoke Exposure: No Special kali accommodation details: Yazidi Current occupational status: employed Gender identity: Female Cognitive needs: No Hearing needs: No Vision needs: No Female Reproductive History Menstrual Age of Menarche: 12 Date of last menstrual period: 02/27/24 Review of Systems Const All systems reviewed & are unremarkable except as noted in HPI and below Endo Reports no additional complaints Physical Exam Const General: cooperative, healthy appearing and no acute distress Psych Appearance: well kempt Attitude: cooperative Thought process: Normal thought process present Results Reviewed Results Reviewed: [address] [address] Ultrasound Report Signed Patient: Caitlyn Cespedes MR#: [id number] : 1970 Acct:[id number] Age/Sex: 53 / F ADM Date: 01/11/24 Loc: HO.US Attending Dr: Tammy Berry CNM Ordering Physician: Tammy Berry CNM Date of Service: 01/11/24 Procedure(s): US pelvic and transvaginal Accession Number(s): [id number] cc: Sunday Gordon MD; Tammy Berry CNM~ EXAMINATION: ULTRASOUND PELVIC, COMPLETE CLINICAL INFORMATION: Mild neoplasm of connective tissue. COMPARISON: Pelvic ultrasound March 22, 2023 TECHNIQUE: Transvaginal: Used to better visualize pelvic structures Transabdominal: Not adequate for visualization Spectral Doppler and color Doppler exam was utilized. LMP: 12/15/2023 FINDINGS: UTERUS: Uterus measures 10.4 x 6.6 x 7.2 cm. Total uterine volume 259 mL. Endometrial thickness 0.4 cm. Nabothian cyst of cervix. There are 4 uterine fibroids: No significant change in uterine fibroid since prior study. No new fibroids. 1. Fundal anterior 5 x 4.3 x 4.5 cm. Previous measurement 5.9 x 5.1 x 4.2 cm. 2. Anterior body. 2.2 x 2.5 x 2.3 cm. Previous measurement 3.6 x 2.8 x 3.4 cm. 3. Posterior body. 1.7 x 1.8 x 1.7 cm. Previous measurement 1.4 x 1.7 x 1.3 cm. 4. Posterior body. 3.3 x 2.5 x 2.7 cm. Previous 2.7 x 2.2 x 2.6 cm. ADNEXA: Right adnexa: Right ovary not visualized. Left adnexa: Ovarian vascularity:Doppler demonstrates both arterial and venous vascular flow in the left ovary. No evidence of ovarian torsion. Left Ovary: 2.9 x 2.1 x 2.2 cm. Volume 70 mL. Previous measurement 3.6 x 2.6 x 2.5 cm. Cul-de-sac: No Fluid US/US pelvic and transvaginal IMPRESSION: 1. Multiple uterine fibroids. No significant change since prior study. 2. Right ovary not visualized. Left ovary is normal. Dictated By: Yousuf Mark MD Signed By: <Electronically signed by Yousuf Mark MD in OV> 01/11/24 1521 DD/ 1155 TD/TT: Cargo Trimmer: ELIZABETH Assessment & Plan Assessment & Plan (1) Encounter to discuss test results: Code(s): Z71.2 - Person consulting for explanation of examination or test findings (2) Fibroids: Code(s): D21.9 - Benign neoplasm of connective and other soft tissue, unspecified Plan Discussed: Ultrasound findings- multiple fibroids. Plan is surgical consult at [facility]. All of her questions and concerns were addressed to the best of my ability. Patient will go to Radiology Department records for report and copy of CD. This note is constructed using voice recognition software. While every effort has been made to ensure accuracy, dairy nutrition consultant errors may have been included. Coding Level of Care Code Est Pt Level 2 (64318) Diagnoses Encounter to discuss test results Z71.2 Fibroids D21.9
== END 2024-02-28 09:43 | disposition home or self-care (01) ==
PROVIDERS: PCP Internal Medicine; Visit Provider Advanced Practice Midwife
DX: Z71.2 Person consulting for explanation of examination or test findings (principal); D21.9 Benign neoplasm of connective and other soft tissue, unspecified
CPT/HCPCS: 99212

== ENCOUNTER → 2024-02-28 08:20 | Outpatient (BNVA) | payer OTHER, SELFPAY | PROVIDERS: PCP Internal Medicine; Visit Provider Advanced Practice Midwife ==

== ENCOUNTER 2024-02-29 14:31 | Outpatient (REF) | payer OTHER, SELFPAY ==
--- NOTE | ~2024-02-29 | XR_ITS ---
EXAMINATION: XR TIBIA AND FIBULA, LEFT CLINICAL INFORMATION: Left lower extremity pain. COMPARISON: 03/03/2009 TECHNIQUE: AP and lateral views of the left tibia and fibula were obtained. FINDINGS: Alignment is anatomic. Joint spaces are maintained. No displaced fracture or dislocation. Small plantar calcaneal spur. XR/XR tibia fibula LT 2V IMPRESSION: No acute abnormality.
== END 2024-02-29 14:32 | disposition home or self-care (01) ==
LOC: HO.XRAY 14:31
PROVIDERS: PCP Internal Medicine; Visit Provider Internal Medicine
DX: M79.605 Pain in left leg (principal)
CPT/HCPCS: 73590

== ENCOUNTER 2024-04-19 05:02 | Emergency (ER) | payer OTHER, SELFPAY ==
--- NOTE | ~2024-04-19 | CT_ITS ---
EXAMINATION: CT ABDOMEN AND PELVIS WITHOUT CONTRAST CLINICAL INFORMATION: Abdominal pain and pressure. Groin pain. Evaluate for renal colic. COMPARISON: Abdominal ultrasound November 2022. CT scan of the abdomen and pelvis June 2014. TECHNIQUE: Multidetector volumetric imaging was performed from the superior aspect of the liver through the pubic symphysis. Sagittal and coronal reformatted images were obtained on the technologist's workstation. This CT examination was performed using dose optimization techniques as appropriate, variously including the following: *Automated exposure control *Adjustment of mA and/or kV according to patient size (this includes techniques or standardized protocols for targeted exams where dose is matched to indication/reason for exam; i.e. extremities or head) *Use of iterative reconstruction technique DLP: 547 mGy-cm FINDINGS: LUNG BASES: The visualized lung bases are unremarkable. LIVER, GALLBLADDER, AND BILIARY TREE: The liver is normal in size, shape, and attenuation. No focal hepatic lesion or biliary ductal dilatation is present. The gallbladder is unremarkable with no evidence of radiopaque gallstones, gallbladder wall thickening, or obvious pericholecystic inflammatory changes. PANCREAS: Unremarkable. SPLEEN: Unremarkable. ADRENAL GLANDS: Unremarkable. KIDNEYS AND URETERS: The kidneys are normal in size, shape, and attenuation. No hydronephrosis, hydroureter, or calculi seen. No perinephric stranding. BLADDER: Unremarkable. GASTROINTESTINAL TRACT: Appendix not visualized. No inflammatory changes in the right lower quadrant. Moderate stool throughout the otherwise normal-appearing colon. Small bowel normal. Stomach normal. ABDOMINAL WALL: No significant hernia is appreciated. LYMPH NODES: Normal. VASCULAR: Unremarkable. PELVIC VISCERA: Enlarged uterus with multiple peripherally calcified intrauterine masses compatible with fibroids. Largest measures 5.7 cm. The previously noted uterus was also enlarged compatible with fibroid uterus but with minimal calcification present on the older exam in 2013. There is a simple left ovarian cyst measuring 3.6 cm. Findings likely represent a probable benign cyst. Recommend followup ultrasonography in 3-6 months only if patient is postmenopausal. OSSEOUS STRUCTURES: Small cyst at the femoral head/neck junction anteriorly. This can be associated with femoroacetabular impingement in some patients. CT/CT abdomen pelvis wo IV con IMPRESSION: 1. No urinary tract calculi. 2. Enlarged fibroid uterus. 3. Simple left ovarian cyst. Recommend followup ultrasonography in 3-6 months only if patient is postmenopausal. 4. Small cyst at the left femoral head/neck junction anteriorly. This can be associated with femoroacetabular impingement in some patients. Fleischner guidelines were followed. Electronically signed by: Caden Larson MD 04/19/2024 09:17 AM EDT RP
[2024-04-19 05:06] VITALS: BP 145/87; PULSE 81; RESP 20; TEMP 36.6; O2SAT 100; BMI 28.3
[2024-04-19 05:31] LABS: Basophils Absolute Auto 0.1 X10*3/uL (0.0-0.2); Basophils Percent Auto 0.7 % (0-2); Eosinophils Absolute Auto 0.2 X10*3/uL (0.0-0.4); Eosinophils Percent Auto 2.6 % (0-4); Hematocrit 37.1 % (37.0-47.0); Hemoglobin 12.1 g/dl (12.0-16.0); Imm Gran Abs Auto 0.03 X10*3/uL (0.00-0.03); Imm Gran Pct Auto 0.4 % (0.0-0.4); Lymphocytes Absolute Auto 1.8 X10*3/uL (1.2-4.9); MANUAL DIFF FLAG NO; Mean Corpuscular HGB Conc 32.6 g/dl (31.0-35.0); Mean Corpuscular Hemoglobin 27.6 pg (27.0-33.0); Mean Corpuscular Volume 84.5 fL (80.0-98.0); Mean Platelet Volume 9.9 fL (9.4-12.3); Monocytes Absolute Auto 0.7 X10*3/uL (0.1-1.2); Monocytes Percent Auto 9.1 % (2-11); Neutrophils Absolute Auto 4.6 x10*3/uL (2.0-8.3); Neutrophils Percent Auto 62.2 % (45-73); Platelet Count 311 X10*3/uL (160-400); Red Blood Count 4.39 X10*6/uL (4.20-5.50); White Blood Count 7.4 X10*3/uL (4.8-10.8)
[2024-04-19 05:33] LABS: Appearance Urine Clear; Color Urine Yellow; Glucose Urine UA Negative (Negative); Leukocyte Esterase Urine Trace (Negative); Nitrite Urine Negative (Negative); PH 5.5 (5.0-9.0); Specific Gravity - Urine 1.025 (1.005-1.025); UMIC TRIGGER UACC YES; Urine Blood Negative (Negative); Urine Ketones Trace mg/dL (Negative); Urine Protein Negative (Neg-Trace)
[2024-04-19 05:34] LABS: UPreg QC Valid YES; Urine Pregnancy NEGATIVE (NEGATIVE)
[2024-04-19 05:36] LABS: Bacteria Urine None Seen (None Seen); Hyaline Casts Urine 0-2 /LPF (0-2); RBC Urine 0-2 /HPF (0-2); UACC Culture Trigger YES
[2024-04-19 05:45] LABS: Alanine Aminotransferase 28 U/L (0-31); Albumin Level 3.8 g/dL (3.5-5.0); Alkaline Phosphatase 50 U/L (39-117); Anion Gap 10 (12-20); Aspartate Amino Transferase 21 U/L (5-31); Bilirubin Direct 0.2 mg/dL (0.0-0.5); Bilirubin Total 0.3 mg/dL (0.0-1.0); Blood Urea Nitrogen 11 mg/dL (9-16); Calcium 8.8 mg/dL (8.4-10.2); Carbon Dioxide 24 mmol/L (22-29); Chloride 107 mmol/L (96-108); Creatinine Clr Calc Pharmacy 79.5; Estimated Glomerular Filt Rate > 60; Glucose Random 112 mg/dL (60-115); Lipase 31 U/L (8-78); Potassium 3.1 mmol/L (3.3-5.1); Sodium 138 mmol/L (135-145); Total Protein 6.6 g/dL (6.5-8.0)
--- OUTSIDE RECORDS SUMMARY | 2024-04-19 06:01 | XMS_ITS ---
Author Organization [facility] Address [address] [place] [address] Care Team Providers Care Supervisor Cutting And Boning Name Role Phone Sunday Gordon MD Primary Care Provider Pato Young [phone] ALLERGIES Allergen (clinical drug ingredient) Drug/Non Drug Allergy documented on EMR Reaction Allergy Type Onset Date Status morphine Morphine Sulfate Unknown Drug Allergy Active REASON FOR VISIT Patient presents today for ulcerative rectosigmoiditis MEDICATIONS Medication SIG (Take, Route, Fr equency, Duration) Notes Start Date End Date Status Mesalamine ER 0.375 GM 4 capsules in the morning Orally Once a day for 30 day(s) 12/08/2022 Active Centrum Adults Activ e SOCIAL HISTORY Sex Assigned At : Social [...] Never (0 point) Points 0 Interpretation Negative VITAL SIGNS BMI 26.53 kg/m2 03/13/2023 Blood pressure systolic 000 mm Hg 03/13/20 23 Blood pressure diastolic 00 mm Hg 023 Height 64.5 in 03/13/2023 Temperature 97.7 degrees Fahrenheit 03/13/20 23 Weight 157 lbs 03/13/2023 Encounters Encounter Location Date Provider Diagnosis [facility] [address] [place] [address] 03/13/2023 Pato Lopez 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 and Left upper quadrant abdominal pain R10.12 ASSESSMENTS Encounter Date Diagnosis Assessment Notes Treatment Notes Treatment Clinical Notes 03/13/2023 Ulcerative rectosigmoiditis without complication (ICD-10 - K51.30) Continue the 4 mesalamine every day 03/13/2023 Left upper quadrant abdominal pain (ICD-10 - R10.12) Try using 1 Famotidine for 2-4 weeks, and then use just as needed for the left upper abdominal discomfort 03/13/2023 Other Repeat colonoscopy in 2024 PLAN OF TREATMENT Treatment Notes Assessment Notes Ulcerative rectosigmoiditis without complication Continue the 4 mesalamine every day Left upper quadrant abdominal pain Try u sing 1 Famotidine for 2-4 weeks, and then use just as needed for the left upper abdominal discomfort Other Repeat colonoscopy i n 2024 Pending Test Test Name Order Date LIVER PROFILE 03/13/2023 CBC w DIFF 03/13/2023 Next Appt Details Follow Up: 6 Months, Reason: Provider Name:Pato Luz Lopez , 06/19/2024 09:00:00 AM, [address] [facility], [address], [place], [address], Progress Notes * Examination Category Sub-Category Detail Notes General Examination GENERAL APPEARANCE: pleasant , well nourished, well developed, in no acute distress--she has developed some Cushingoid facies EYES: sclera non-icteric NECK/THYROID: no cervical lymphade nopathy, neck supple HEART: S1, S2 normal LUNGS: clear to auscultatio n bilaterally ABDOMEN: normal bowel sounds, no guarding or rigidity, no hepatosplenomegaly, no masses palpable, soft, nontender, nondistended. NEUROLOGIC: alert and oriented SKIN: nonjaundiced, no spi marcela angiomata. EXTREMITIES: no edema ORAL CAVITY: mucosa moist
--- OUTSIDE RECORDS SUMMARY | 2024-04-19 06:01 | XMS_ITS ---
Author Organization [facility] Address [address] [place] [address] Care Team Providers Care Pr Manager Name Role Phone Sunday Gordon MD Primary Care Provider Pato Young [phone] ALLERGIES Allergen (clinical drug ingredient) Drug/Non Drug Allergy documented on EMR Reaction Allergy Type Onset Date Status morphine Morphine Sulfate Unknown Drug Allergy Active REASON FOR VISIT abdominal burning pain, constipation & soft stool MEDICATIONS Medication SIG (Take, Route, Fr equency, Duration) Notes Start Date End Date Status Centrum Adults Activ e Famotidine 40 MG 1 Orally Twice a day for the abdominal pain for 30 day(s) 12/08/2022 Act francisco Mesalamine ER 0.375 GM 4 capsules in the morning Orally Once a day for 30 day(s) 12/08/2022 Active SOCIAL HISTORY Sex Assigned At : Social [...] W/U Status Risk SNOMED Code Notes Problem Left upper quadrant abdominal pain (R10.12) Active confirmed 185800688 VITAL SIGNS BMI 27.54 kg/m2 12/08/2022 Blood pressure systolic 000 mm Hg 12/09/19 23 Blood pressure diastolic 00 mm Hg 023 Height 64.5 in 12/08/2022 Temperature 97.7 degrees Fahrenheit 12/09/19 23 Weight 163 lbs 12/08/2022 Encounters Encounter Location Date Provider Diagnosis [facility] [address] [place] [address] 12/08/2022 Pato Lopez 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 and Left upper quadrant abdominal pain R10.12 ASSESSMENTS Encounter Date Diagnosis Assessment Notes Treatment Notes Treatment Clinical Notes 12/08/2022 Ulcerative rectosigmoiditis without complication (ICD-10 - K51.30) 12/08/2022 Left upper quadrant abdominal pain (ICD-10 - R10.12) PLAN OF TREATMENT Medication Medication Name Sig Start Date Stop Date Notes Famotidine 40 MG 1 Orally Twice a day for the abdominal pain for 30 day(s) 12/08/2022 Mesalamine ER 0.375 GM 4 capsules in the morning Orally Once a day for 30 day(s) 12/08/2022 Next Appt Details Follow Up: 3-4 months, Reaso n: Provider Name:Pato Lopez , 06/19/2024 09:00:00 AM, [address], [address], [place], [address], Progress Notes * Examination Category Sub-Category Detail [...]
--- OUTSIDE RECORDS SUMMARY | 2024-04-19 06:01 | XMS_ITS ---
Author Organization [facility] Address [address] [place] [address] Care Team Providers Care Decorating Kiln Operator Name Role Phone Sunday Gordon MD Primary Care Provider Unava ilable Laurel Richard Unavailable [phone] Encounters Encounter Location Date [facility] [place] [address] 12/31/2023 Laurel Richard PLAN OF TREATMENT No Information
--- OUTSIDE RECORDS SUMMARY | 2024-04-19 06:01 | XMS_ITS ---
Author Organization [facility] Address [address] [place] [address] Care Team Providers Care Child Development Associate Teacher Name Role Phone Sunday Gordon MD Primary Care Provider Pato Young [phone] ALLERGIES Allergen (clinical drug ingredient) Drug/Non Drug Allergy documented on EMR Reaction Allergy Type Onset Date Status morphine Morphine Sulfate Unknown Drug Allergy Active REASON FOR VISIT Patient presents today for ulcerative rectosigmoiditis SOCIAL HISTORY Sex Assigned At : Social [...] W/U Status Risk SNOMED Code Notes Problem Family history of colon cancer (Z80.0) Active confirmed [id number] VITAL SIGNS BMI 26.36 kg/m2 09/19/2023 Blood pressure systolic 000 mm Hg 09/19/19 24 Blood pressure diastolic 00 mm Hg 024 Height 64.5 in 09/19/2023 Temperature 97.5 degrees Fahrenheit 09/19/19 24 Weight 156 lbs 09/19/2023 Encounters Encounter Location Date Provider Diagnosis [facility] [address] [place] [address] 09/19/2023 Pato Lopez 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
--- OUTSIDE RECORDS SUMMARY | 2024-04-19 06:01 | XMS_ITS | Patient Health Record ---
Author Organization [facility] Address [address] [place] [address] Care Team Providers Care Liquid Fertilizer Servicer Name Role Phone Evan DE JESUS, [place] Primary Care Provider Unava ilable Laurel Richard Unavailable [phone] REASON FOR REFERRAL No Information Encounters Encounter Location Date [facility] [address] [place] [address] 12/31/2023 Laurel Richard PLAN OF TREATMENT No Information Insurance Providers Payer Name Payer Address Payer Phone Subscriber Number Group Number Insured Name Patient Relationship to Insured Coverage Start Date Coverage End Date Blue Benefits [address] [address] [place] [address] [id number] Caitlyn Zafar Self - patient is the insured
--- OUTSIDE RECORDS SUMMARY | 2024-04-19 06:01 | XMS_ITS | Patient Health Record ---
Author Organization [facility] Address [address] [place] [address] Care Team Providers Care Medical Practice Manager Name Role Phone Sunday Gordon MD Primary Care Provider Pato Young [phone] ALLERGIES Allergen (clinical drug ingredient) Drug/Non Drug [...] malignant neoplasm of colon (Z12.11) Active confirmed [id number] Problem Ulcerative (chronic) rectosigmoiditis without complications (K51.30) Active confirmed 30635669 Problem Family history of colon cancer (Z80.0) Active confirmed 671693000 Problem Ulcerative rectosigmoiditis without complication (K51.30) Active confirmed 22828670 Problem Abdominal pain, right upper quadrant (R10.11) Active confirmed 683160442 Problem 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) Active confirmed 59894962 Problem Left upper quadrant abdominal pain (R10.12) Active confirmed 422929513 VITAL SIGNS Temperature 97.5 degrees Fahrenheit 09/19/2023 Blood pressure diastolic 00 mm Hg 09/19/2023 Height 64.5 in 09/19/2023 Blood pressure systolic 000 mm Hg 09/19/2023 Weight 156 lbs 09/19/2023 BMI 26.36 kg/m2 09/19/2023 Encounters Encounter Location Date Provider Diagnosis [facility] [address] [place] [address] 09/19/2023 Pato Lopez 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 and Family history of colon cancer Z80.0 ASSESSMENTS Encounter Date Diagnosis Assessment Notes Treatment Notes Treatment Clinical Notes 09/19/2023 Family history of co alice cancer (ICD-10 - Z80.0) 09/19/2023 Ulcerative rectosigmoiditis without complication (ICD-10 - K51.30) PLAN OF TREATMENT Pending Test Test Name Order Date CHEM 7 PROFILE 12/06/2012 CHEM 7 PROFILE 02/15/2018 CHEM 7 PROFILE 10/25/2021 CHEM 7 PROFILE 10/17/2016 ELECTROLYTES 06/29/2014 BUN 06/29/2014 CREATININE 06/29/2014 LIVER PROFILE 12/06/2012 LIVER PROFILE 06/29/2014 LIVER PROFILE 03/13/2023 LIVER PROFILE 02/15/2018 LIVER PROFILE 10/25/2021 LIVER PROFILE 10/17/2016 CRP 10/25/2021 CRP 10/17/2016 CRP 06/29/2014 CRP 02/15/2018 CBC w DIFF 10/25/2021 CBC w DIFF 10/17/2016 CBC w DIFF 12/06/2012 CBC w DIFF 03/13/2023 CBC w DIFF 06/29/2014 CBC with MANUAL DIFFERENTIAL 02/15/2018 SED RATE (ESR) 02/15/2018 SED RATE (ESR) 10/25/2021 SED RATE (ESR) 10/17/2016 SED RATE (ESR) 12/06/2012 SED RATE (ESR) 06/29/2014 CLOSTRIDIUM DIFF TOXIN A&B (C DIFF) 09/14 CLOSTRIDIUM DIFF TOXIN A&B (C DIFF) 01/2018 CLOSTRIDIUM DIFF TOXIN A&B (C DIFF) 02/2017 STOOL WBC 02/15/2018 STOOL WBC 10/17/2016 GIARDIA AG, STOOL EIA 10/17/2016 GIARDIA AG, STOOL EIA 02/15/2018 OVA & PARASITES (O&P) 02/15/2018 OVA & PARASITES (O&P) 10/17/2016 CULTURE, STOOL 02/15/2018 CULTURE, STOOL 10/06/2014 CULTURE, STOOL 10/17/2016 Future Test Test Name Order Date COLONOSCOPY 10/30/2014 COLONOSCOPY 11/05/2019 Next Appt Details Provider Name:Pato Lopez , 06/19/2024 09:00:00 AM, [address] [facility], [address], [place], [address], Insurance Providers Payer Name Payer Address Payer Phone Subscriber Number Group Number Insured Name Patient Relationship to Insured Coverage Start Date Coverage End Date [employer] [place] [address] [address] [place] [address] [id number] SIMENTAL Self - patient is the insured MEDICAL (GENERAL) HISTORY Medical History History ICD Code Ulcerative colitis diagnosed at age 17- colonoscopy in 06/2009-colitis in proximal rectum and sigmoid-all bx neg for dysplasia. Started Delzicol in 11/2012. Kidney stones Denies PA,DM,CVA,Lung disease, renal dis ease EGD in 07/2011-HH, [...]
[2024-04-19 06:08] VITALS: BP 124/72; PULSE 71; RESP 17; TEMP 36.7; O2SAT 100
--- NOTE | 2024-04-19 06:41 | ED_ITS ---
HPI - Abdominal Pain General Chief Complaint: Abdominal Pain Stated Complaint: lwr abd/bilateral groin pain Time Seen by Provider: 04/19/24 06:41 Source: patient Mode of arrival: ambulatory Limitations: no limitations History of Present Illness ED Provider: CARINE MARTÍNEZ PA-C HPI narrative: 53 year old female with pmhx significant for UC (in remission), uterine fibroids, and nephrolithiasis requiring lithotripsy presents to the ED today for evaluation of lower abdominal/ groin pain intermittently x2 weeks. Reports pain acutely worsened and woke her from her sleep at 0300 this morning, prompting her to come in to the ED for evaluation. Admits to associated nausea without vomiting. Last BM this morning and was normal. 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 Denies fever, chills, chest pain, sob, vomiting, diarrhea, constipation, flank pain, hematuria, dysuria, urinary frequency or urgency, rashes. Related Data Previous Rx's ?Medication ?Instructions ?Recorded lorazepam 0.5 mg tablet See Rx Instructions .Route 04/10/24 .COMPLEX anxiety 1 day #2 tabs ondansetron 4 mg disintegrating 4 mg PO DAILY PRN nausea and 04/19/24 tablet vomiting 5 days #7 tabs Allergies Allergy/AdvReac Type Severity Reaction Status Date / Time morphine [MORPHINE] Allergy Intermediate RASH, Hives Verified 04/19/24 05:07 sertraline AdvReac Unknown Ulcerative Verified 04/19/24 05:07 Colitis flared seasonal Allergy Mild Sneezing Uncoded 04/19/24 05:07 Review of Systems Review of Systems Constitutional: No fever, chills, fatigue, night sweats, weight changes ENT/Mouth: No ear pain, hearing loss, nasal congestion, sinus pain, rhinorrhea, sore throat Eyes: No eye pain, swelling, redness, vision changes, discharge Cardio: No chest pain, palpitations, VALENTIN, orthopnea, peripheral edema Pulm: No SOB, cough, sputum, wheezing, dyspnea, hemoptysis GI: No vomiting, hematemesis, diarrhea, constipation, hematochezia, melena, + nausea, +abdominal pain : No irregular bleeding, dysuria, frequency, urgency, hesitancy, hematuria, flank pain, urinary flow changes, urinary incontinence or retention MSK: No back pain, neck pain, joint pain, myalgias Skin: No lesions, rashes Neuro: No weakness, numbness, paresthesias, LOC, dizziness, headache Psych: No anxiety/panic, depression, SI/HI, AH/VH All other systems reviewed and are negative. PENDING SALE TO [facility] Past Medical History Attestation statement: The following information was validated with the patient. Source: old records reviewed and nursing notes reviewed Medical History Insomnia Overweight (BMI 25.0-29.9) Fatigue History of uterine fibroid Ulcerative colitis Surgical History Hx of colonoscopy (~11/14/19) History of surgical procedure History of tooth extraction History of cervical polypectomy Family History Family History Daughter Breast cancer, Onset Age: 31 Maternal Grandmother Cancer Mother Varicose veins of both lower extremities with pain Social History Social History Housing: Apartment Alcohol intake: current Alcohol intake frequency: holidays/special occasions only Alcohol type: wine Patient Tobacco Use Status: Never used Tobacco Smoked in Last 30 Days: No e-Cigarette/Vaping Use: Never Used Second Hand Smoke Exposure: No Use of substances other than those prescribed or required for medical reasons: No Special kali accommodation details: Anabaptism Advance Directives: No Advance Directives Information Provided: Yes Do you have a plan to hurt others: No Plan Patient : No Current occupational status: employed Gender identity: Female Cognitive needs: No Hearing needs: No Vision needs: No Physical Exam ED Vital Signs: Vital Signs - 24 hr 04/19/24 05:06 04/19/24 06:08 04/19/24 08:28 Temperature 97.9 F 98.0 F Pulse Rate 81 71 64 Respiratory Rate 20 17 16 Blood Pressure 145/87 H 124/72 128/79 Pulse Oximetry 100 100 100 Oxygen Delivery Method Room Air Room Air Room Air 04/19/24 10:35 Temperature 98.2 F Pulse Rate 64 Respiratory Rate 18 Blood Pressure 128/79 Pulse Oximetry 100 Oxygen Delivery Method Room Air BMI result Body Mass Index 28.3 vital signs stable, afebrile General: Well appearing, in no acute distress. Skin: Warm, dry, intact. No rashes or lesions. Head: Normocephalic, atraumatic. Neck: Supple without LAD. FROM. Trachea midline.? Cardiac: Chest wall symmetric. RRR. No MRG. No JVD. Lungs: Normal respiratory effort without accessory muscle use. CTA bilaterally. No rales, rhonchi, or wheezes.? Abdomen: Soft, non-tender, non-distended. No rebound tenderness or guarding. Positive BS x4. Back: No midline spinous or paraspinal tenderness. No step off deformity. No CVAT. Ext: Upper and lower extremities atraumatic, without tenderness, deformity, swelling or erythema. Full ROM throughout. Strength 5/5 throughout. Capillary refill <2 seconds in all extremities. Pulses 2+ equal and bilateral. Neuro: AOx3. Normal speech. Ambulating with steady gait. Psych: Appropriate mood and affect. Responds appropriately to questions. Course Course Course Narrative: 0657 -- CBC without leukocytosis or left shift. No anemia. H&H stable. Chemistry showing hypokalemia to 3.1 > 20 IV potassium ordered for repletion. No other acute electrolyte abnormality requiring intervention. No RADHA. Normal liver function. Lipase WNL at 31. Pancreatitis unlikely. Urine negative for infection, blood, . > I did review pelvic/transvaginal ultrasound obtained in December of this year. There are multiple uterine fibroids throughout the uterus without any other significant abnormality. Patient tells me that she has MRI scheduled for possible hysterectomy due to fibroids. > patient receiving 1 L of IV fluids, Zofran, Toradol and potassium repletion at this time > CT abdomen pending 1030 -- CT abdomen showing large fibroid uterus with stable left ovarian cyst. No free fluid in the pelvis. No evidence of renal or ureteral calculi. Kidneys are normal in appearance. > I have suspicion that patient's discomfort is attributable to her fibroids. she has follow up this week for pre-op MRI with plan for hysterectomy. advised to call her provider on sunday to touch base regarding todays visit. advised to take nsaids for discomfort. will send zofran for nausea. Patient has remained stable throughout ED visit today. Discussed worrisome signs and symptoms and when to return to the ED. All questions answered at this time. Patient is agreeable with disposition and stable for discharge. Medical Decision Making Medical Decision Making [facility] Narrative: 53 year old female with pmhx significant for UC (in remission), uterine fibroids, and nephrolithiasis requiring lithotripsy presents to the ED today for evaluation of lower abdominal/ groin pain intermittently x2 weeks. Hypertensive to 145/87, vitals otherwise WNL. She is afebrile. She is nontoxic-appearing and in no acute distress. On exam, her abdomen is soft, nondistended, nontender to palpation. No rebound tenderness or guarding. There are normoactive bowel sounds x4. No CVAT bilaterally. Skin warm, dry, intact, no rashes. Differential diagnosis includes renal colic, nephrolithiasis, gastroenteritis, urinary tract infection, uterine fibroids, hydronephrosis. Abdominal exam without peritoneal signs. No evidence of acute abdomen at this time. Well appearing. Moderate suspicion for acute hepatobiliary disease (including acute cholecystitis), biliary colic. Less likely to represent acute pancreatitis, PUD (including perforation), acute infectious processes (pneumonia, hepatitis, pyelonephritis), atypical appendicitis, vascular catastrophe, bowel obstruction or viscus perforation. Presentation not consistent with other acute, emergent causes of abdominal pain at this time. Plan for basic labs, UA, CT abdomen, IVF, antinausea medication, pain control, and re-evaluation. Differential Diagnosis Differential Diagnoses: The differential diagnosis associated with the presentation includes as above. Admission/Observation not indicated. Lab Data [facility] Lab Attestation statement: I reviewed the patient's lab results. as above. 04/19/24 05:24 04/19/24 05:24 Labs: Lab Results 04/19/24 Range/Units 05:24 WBC 7.4 (4.8-10.8) X10*3/uL RBC 4.39 (4.20-5.50) X10*6/uL Hgb 12.1 (12.0-16.0) g/dl Hct 37.1 (37.0-47.0) % MCV 84.5 (80.0-98.0) fL MCH 27.6 (27.0-33.0) pg MCHC 32.6 (31.0-35.0) g/dl RDW 13.0 (11.0-16.0) % Plt Count 311 (160-400) X10*3/uL MPV 9.9 (9.4-12.3) fL Immature Gran % (Auto) 0.4 (0.0-0.4) % Neut % (Auto) 62.2 (45-73) % Lymph % (Auto) 25.0 (20-40) % [place] % (Auto) 9.1 (2-11) % Eos % (Auto) 2.6 (0-4) % Baso % (Auto) 0.7 (0-2) % Lymph # (Auto) 1.8 (1.2-4.9) X10*3/uL [place] # (Auto) 0.7 (0.1-1.2) X10*3/uL Eos # (Auto) 0.2 (0.0-0.4) X10*3/uL Baso # (Auto) 0.1 (0.0-0.2) X10*3/uL Abs Immat Gran (auto) 0.03 (0.00-0.03) X10*3/uL Absolute Neuts (auto) 4.6 (2.0-8.3) x10*3/uL Absolute Nucleated RBC 0.000 (0.0-0.012) X10*3/uL Nucleated RBC % (auto) 0.0 (0.0-0.2) /100WBC Sodium 138 (135-145) mmol/L Potassium 3.1 L (3.3-5.1) mmol/L Chloride 107 (96-108) mmol/L Carbon Dioxide 24 (22-29) mmol/L Anion Gap 10 L (12-20) BUN 11 (9-16) mg/dL Creatinine 0.82 (0.5-1.4) mg/dL Estim Creat Clear Calc 79.5 Estimated GFR > 60 Random Glucose 112 (60-115) mg/dL Calcium 8.8 D (8.4-10.2) mg/dL Total Bilirubin 0.3 (0.0-1.0) mg/dL Direct Bilirubin 0.2 (0.0-0.5) mg/dL AST 21 (5-31) U/L ALT 28 (0-31) U/L Alkaline Phosphatase 50 (39-117) U/L Total Protein 6.6 (6.5-8.0) g/dL Albumin 3.8 (3.5-5.0) g/dL Lipase 31 (8-78) U/L Urine Color Yellow Urine Appearance Clear Urine pH 5.5 (5.0-9.0) Ur Specific [place] 1.025 (1.005-1.025) Urine Protein Negative (Neg-Trace) mg/dL Urine Glucose (UA) Negative (Negative) mg/dL Urine Ketones Trace (Negative) mg/dL Urine Blood Negative (Negative) Urine Nitrite Negative (Negative) Ur Leukocyte Esterase Trace H (Negative) Urine RBC 0-2 (0-2) /HPF Urine WBC 6-10 H (0-5) /HPF Ur Squamous Epith Cells 6-10 (0-2) /HPF Urine Bacteria None Seen (None Seen) Hyaline Casts 0-2 (0-2) /LPF Urine Test NEGATIVE (NEGATIVE) Independent Interpretation I performed an independent interpretation of an: Ultrasound and CT Scan Interpretation: CT abdomen/pelvis without evidence of renal or ureteral calculi, agree with radiologist's interpretation. Pelvic/transvaginal ultrasound (01/11/24) showing multiple uterine fibroids, agree with radiologist's interpretation. Radiology Impression Discussion of test interpretation with radiology: I have reviewed the radiologist's reading. Radiologist Impression: EXAMINATION: ULTRASOUND PELVIC, COMPLETE CLINICAL INFORMATION: Mild neoplasm of connective tissue. COMPARISON: Pelvic ultrasound March 22, 2023 TECHNIQUE: Transvaginal: Used to better visualize pelvic structures Transabdominal: Not adequate for visualization Spectral Doppler and color Doppler exam was utilized. LMP: 12/15/2023 FINDINGS: UTERUS: Uterus measures 10.4 x 6.6 x 7.2 cm. Total uterine volume 259 mL. Endometrial thickness 0.4 cm. Nabothian cyst of cervix. There are 4 uterine fibroids: No significant change in uterine fibroid since prior study. No new fibroids. 1. Fundal anterior 5 x 4.3 x 4.5 cm. Previous measurement 5.9 x 5.1 x 4.2 cm. 2. Anterior body. 2.2 x 2.5 x 2.3 cm. Previous measurement 3.6 x 2.8 x 3.4 cm. 3. Posterior body. 1.7 x 1.8 x 1.7 cm. Previous measurement 1.4 x 1.7 x 1.3 cm. 4. Posterior body. 3.3 x 2.5 x 2.7 cm. Previous 2.7 x 2.2 x 2.6 cm. ADNEXA: Right adnexa: Right ovary not visualized. Left adnexa: Ovarian vascularity:Doppler demonstrates both arterial and venous vascular flow in the left ovary. No evidence of ovarian torsion. Left Ovary: 2.9 x 2.1 x 2.2 cm. Volume 70 mL. Previous measurement 3.6 x 2.6 x 2.5 cm. Cul-de-sac: No Fluid US/US pelvic and transvaginal IMPRESSION: 1. Multiple uterine fibroids. No significant change since prior study. 2. Right ovary not visualized. Left ovary is normal. EXAMINATION: CT ABDOMEN AND PELVIS WITHOUT CONTRAST CLINICAL INFORMATION: Abdominal pain and pressure. Groin pain. Evaluate for renal colic. COMPARISON: Abdominal ultrasound November 2022. CT scan of the abdomen and pelvis June 2014. TECHNIQUE: Multidetector volumetric imaging was performed from the superior aspect of the liver through the pubic symphysis. Sagittal and coronal reformatted images were obtained on the technologist's workstation. This CT examination was performed using dose optimization techniques as appropriate, variously including the following: *Automated exposure control *Adjustment of mA and/or kV according to patient size (this includes techniques or standardized protocols for targeted exams where dose is matched to indication/reason for exam; i.e. extremities or head) *Use of iterative reconstruction technique DLP: 547 mGy-cm FINDINGS: LUNG BASES: The visualized lung bases are unremarkable. LIVER, GALLBLADDER, AND BILIARY TREE: The liver is normal in size, shape, and attenuation. No focal hepatic lesion or biliary ductal dilatation is present. The gallbladder is unremarkable with no evidence of radiopaque gallstones, gallbladder wall thickening, or obvious pericholecystic inflammatory changes. PANCREAS: Unremarkable. SPLEEN: Unremarkable. ADRENAL GLANDS: Unremarkable. KIDNEYS AND URETERS: The kidneys are normal in size, shape, and attenuation. No hydronephrosis, hydroureter, or calculi seen. No perinephric stranding. BLADDER: Unremarkable. GASTROINTESTINAL TRACT: Appendix not visualized. No inflammatory changes in the right lower quadrant. Moderate stool throughout the otherwise normal-appearing colon. Small bowel normal. Stomach normal. ABDOMINAL WALL: No significant hernia is appreciated. LYMPH NODES: Normal. VASCULAR: Unremarkable. PELVIC VISCERA: Enlarged uterus with multiple peripherally calcified intrauterine masses compatible with fibroids. Largest measures 5.7 cm. The previously noted uterus was also enlarged compatible with fibroid uterus but with minimal calcification present on the older exam in 2013. There is a simple left ovarian cyst measuring 3.6 cm. Findings likely represent a probable benign cyst. Recommend followup ultrasonography in 3-6 months only if patient is postmenopausal. OSSEOUS STRUCTURES: Small cyst at the femoral head/neck junction anteriorly. This can be associated with femoroacetabular impingement in some patients. CT/CT abdomen pelvis wo IV con IMPRESSION: 1. No urinary tract calculi. 2. Enlarged fibroid uterus. 3. Simple left ovarian cyst. Recommend followup ultrasonography in 3-6 months only if patient is postmenopausal. 4. Small cyst at the left femoral head/neck junction anteriorly. This can be associated with femoroacetabular impingement in some patients. Fleischner guidelines were followed. Electronically signed by: Caden Larson MD 04/19/2024 09:17 AM EDT External Record Review External record reviewed: Inpatient record, Office record, Outpatient record, Prior outpatient labs, Prior outpatient radiology, Primary care record and Outside ED record Prescription Management I considered prescription management with: Pain Medication and Other (zofran) Chronic Conditions Patient?s care impacted by: Other (uterine fibroids) Social Determinants Patient?s care significantly limited by Social Determinants of Health including: Other Social Determinant of Health Medications Administered Discontinued Medications Generic Name Dose Route Start Last Admin Trade Name Freq PRN Reason Stop Dose Admin Sodium Chloride 1,000 mls @ 999 mls/hr 04/19/24 07:00 04/19/24 09:10 Ns IV 04/19/24 08:00 Infused .Q1H1M ODETTE Infusion Potassium Chloride 10 meq in 100 mls @ 100 mls/hr 04/19/24 07:00 04/19/24 10:13 Potassium Chloride/H20 IV 04/19/24 08:59 Infused Q1H ODETTE Infusion Ketorolac Tromethamine 15 mg 04/19/24 06:48 04/19/24 06:58 Ketorolac Tromethamine 15 Mg/Ml Vial IVPUSH 04/19/24 06:49 15 mg ONCE ONE Administration Ondansetron HCl 4 mg 04/19/24 06:48 04/19/24 06:58 Ondansetron Hcl 4 Mg/2 Ml Vial IVPUSH 04/19/24 06:49 4 mg ONCE ONE Administration Critical Care Time Critical Care Time Critical Care Time: No Discharge Plan Discharge Clinical Impression: Uterine fibroid, Hypokalemia Patient Disposition: Home, Self-Care Instructions: Potassium Content of Foods List (ED), Hypokalemia (ED), Vaginal Hysterectomy (DC) Additional Instructions: Your blood work today is reassuring. Your potassium was noted to be slightly low at 3.1 and you received repletion through the IV today. Please follow up with your PCP in 2-3 weeks to have labs rechecked to ensure your potassium is normal. Your urine is negative for infection, blood, . The CT scan of your abdomen shows enlarged fibroid uterus with a simple left ovarian cyst. Please continue following up with your provider outpatient regarding scheduled hysterectomy.. Call them Sunday morning to touch base and let them know that you were evaluated in the ED. You may take Tylenol and ibuprofen at home as needed for pain/discomfort. Penny has been sent to your pharmacy for you to take as needed for nausea. Return with new or worsening symptoms. In the case of an emergency call 911. Prescriptions: New ondansetron 4 mg tablet,disintegrating 4 mg PO DAILY PRN (Reason: nausea and vomiting) 5 Days Qty: 7 0RF No Action lorazepam 0.5 mg tablet See Rx Instructions .Route .COMPLEX 1 Days Qty: 2 0RF Rx Instructions: Take 1 tablet 30 minutes before procedure as needed for anxiety. May repeat x 1 dose after 10 to 15 minutes if needed. Interventions: ED Discharge Assessment Last Done: 04/19/24 10:35 Discharge Date/Time: 04/19/24 10:36 Print Language: Salvadorean
[2024-04-19] MEDS: Ketorolac Tromethamine 15 MG/ML VIAL IVPUSH (06:58)
[2024-04-19] MEDS: ondansetron HCL 4 MG/2 ML VIAL IVPUSH (06:58)
--- NOTE | 2024-04-19 07:03 | PC.NURSE ---
Patient is alert and oriented x3. Patient complaints of pain in lower abd, b/l groin and inner thighs 2/10 at rest. Patient also reports nausea, no vomiting/no diarrhea. 20 G IV line established in R AC, patient medicated per MAR. Call ford placed within patient's reach, plan of care ongoing.
[2024-04-19] MEDS: Potassium Chloride/H20 10 MEQ/100 ML PIGGYBACK 100 MEQ IV ×2 (07:48→08:38)
[2024-04-19] MEDS: 0.9 % Sodium Chloride 1,000 ML 999 ML IV (07:54)
[2024-04-19 08:28] VITALS: BP 128/79; PULSE 64; RESP 16; O2SAT 100
[2024-04-19 10:35] VITALS: BP 128/79; PULSE 64; RESP 18; TEMP 36.8; O2SAT 100
== END 2024-04-19 10:36 | disposition home or self-care (01) ==
PROVIDERS: Emergency Provider Emergency Medicine Emergency Medical Services; PCP Internal Medicine
DX: D25.9 Leiomyoma of uterus, unspecified (principal); E87.6 Hypokalemia; R10.30 Lower abdominal pain, unspecified
CPT/HCPCS: 36415; 74176; 80048; 80076; 81001; 81025; 83690; 85025; 87086; 96361; 96365; 96366; 96375; 99285; J1885; J2405; J3480

== ENCOUNTER 2024-04-22 09:52 | Outpatient (REF) | payer OTHER, SELFPAY | END 2024-04-22 09:53 | disposition home or self-care (01) | LOC: HO.LNP 09:52 | PROVIDERS: PCP Internal Medicine; Visit Provider Advanced Practice Midwife | DX: N93.9 Abnormal uterine and vaginal bleeding, unspecified (principal); Z32.02 Encounter for pregnancy test, result negative | CPT/HCPCS: 58100; 81025; 88305 ==

== ENCOUNTER 2024-04-22 09:52 | Outpatient (AMB) | payer OTHER, SELFPAY ==
--- NOTE | 2024-04-22 09:54 | A.OFFVIS_ITS ---
Vital Signs 04/22/24 10:00 Height 5 ft 4 in Weight 165 lb BMI 28.3 BP 104/80 Blood Pressure Location Rt brachial Position Sitting Intake Visit Reasons: EMB Allergies morphine [MORPHINE] Allergy (Intermediate, Verified 04/22/24 10:01) RASH, Hives sertraline Adverse Reaction (Unknown, Verified 04/22/24 10:01) Ulcerative Colitis flared seasonal Allergy (Mild, Uncoded 04/22/24 10:01) Sneezing Is last menstrual period known: Yes Last menstrual period: 03/26/24 HPI Comments Details: Patient is here today for an EMB biopsy procedure per request of her Gyne/Onc provider prior to having surgery. History of multiple large fibroids and chronic pelvic pain. She has a consult follow up with Dr. Reyes, and MRI scheduled on April 28, and plans to scheduled robotic surgery with another provider at [facility] soon afterwards. She was seen in the emergency room over the weekend due to the increasing pelvic pain and pressure. [facility], [facility] Medical History Insomnia Overweight (BMI 25.0-29.9) Fatigue History of uterine fibroid Ulcerative colitis Surgical History Hx of colonoscopy (~11/14/19) History of surgical procedure History of tooth extraction History of cervical polypectomy Family History Daughter Breast cancer, Onset Age: 31 Maternal Grandmother Cancer Mother Varicose veins of both lower extremities with pain Social History Housing: Apartment Alcohol intake: current Alcohol intake frequency: holidays/special occasions only Alcohol type: wine Patient Tobacco Use Status: Never used Tobacco e-Cigarette/Vaping Use: Never Used Second Hand Smoke Exposure: No Special kali accommodation details: Spiritism Current occupational status: employed Gender identity: Female Cognitive needs: No Hearing needs: No Vision needs: No Female Reproductive History Menstrual Age of Menarche: 12 Duration of menses: 3-5 days Date of last menstrual period: 03/26/24 control method: none Review of Systems Const All systems reviewed & are unremarkable except as noted in HPI and below Physical Exam Vital Signs: Last Vital Signs BP 104/80 04/22/24 10:00 BMI result Body Mass Index 28.3 Const General: cooperative, healthy appearing and no acute distress Orientation/consciousness: patient oriented x3 GI Inspection: Yes normal to inspection Palpation (GI): Soft to palpation and Other GI palpation findings present (Nontender) Rectal Exam - Female: visual inspection normal General: Yes bladder normal to palpation External Female Exam: normal appearance of the urethra Speculum Exam - Vagina: normal appearance of the vagina, normal palpation and normal vaginal discharge Speculum Exam - Cervix: normal appearance of the cervix and normal palpation Bimanual exam- vagina & uterus: normal bimanual exam, normal palpation, bladder normal to palpation, normal palpation, uterine shape normal, enlarged and Uterine tenderness Bimanual Exam- Adnexa, other: normal adnexae Neuro General: patient oriented x3 Office Procedures Endometrial Biopsy Details: The patient is here today for an endometrial biopsy due to large fibroids, pelvic pain history of irregular cycles, to rule out any pathology including atypical, hyperplasia or cancer cells of the uterus. She was counseled regarding anticipatory guidance for the procedure including the risks for pain, infection, bleeding, perforation, potential injury to the tissues may include the cervix, uterus, tubes, bladder and bowels. These injuries may include further treatment and evaluation including surgery, blood transfusions, antibiotics, hospitalizations and anesthesia. Permanent injury and scarring can occur. She was consented for the procedure, and the consent forms were signed. She is agreeable to have the procedure today. All questions were answered. Endometrial Biopsy Procedure: The patient was placed in the dorsal lithotomy position and a sterile speculum inserted. Using aseptic technique for the procedure. The cervix was cleansed with Betadine x 3 swabs. A single toothed tenaculum was placed on the cervix for stabilization, the cervix external os was small and stenotic a graduated dilator was inserted to 0.5 cm, and the uterus was sounded to 9 cm with a 4mm pipelle, and tissue sample obtained. Minimal bleeding was observed. The tissue sample was placed in formalin in a patient labeled container by staff assisting and sent to the pathology department for processing and interpretation. The patient tolerate the procedure well and was in good condition when leaving the department. Endometrial Biopsy Post Procedure Care: Nothing in the vagina including: tampons, douching or intimacy until all the b leeding has subsided. There may be some post procedure bleeding for several days, this bleeding is usually light and may turn to a light brown or pink color. Mild cramps may occurs. Nothing in the vaginal including: tampons, douching, or intimacy until all the bleeding has subsided. You may take an over the counter mild analgesic such as Tylenol or Advil (if no allergies) per the manufactures recommendation on dosing, frequency, and follow the directions completely. Call the office if any: fever (over 100.4), flu like symptoms, abdominal pain (worse than cramping), foul smelling, infected appearing vaginal discharge, or heavy bleeding. If indicated: Use condoms to prevent and STI's, and only after the bleeding has stopped completely. Return to the office in 2 weeks for results and plan of care. This note is constructed using voice recognition software. While every effort has been made to ensure accuracy, combination machine tool setter errors may have been included. [id number] Biopsy Results AMB Test Urine AMB Test Urine Negative Last Edit by Eunice Joe CMA on 04/22/24 10:16 Results Reviewed Results Reviewed: Laboratory Last Values Tst Clinic Negative 04/22/24 10:15 Assessment & Plan Assessment & Plan (1) Fibroids: Code(s): D21.9 - Benign neoplasm of connective and other soft tissue, unspecified (2) Irregular bleeding: Code(s): N92.6 - Irregular menstruation, unspecified (3) Pelvic pain: Code(s): R10.2 - Pelvic and perineal pain Plan See procedure notes. Orders: Orders AMB HCG Urine Test Today Z32.02 - Encounter for test, result negative Surgical Today N93.9 - Abnormal uterine and vaginal bleeding, unspecified Coding Level of Care Code Procedure Only Diagnoses Fibroids D21.9 Irregular bleeding N92.6 Pelvic pain R10.2 CPT Codes Endometrial Biopsy - CPT: 67904-[id number] Biopsy ([id number])
[2024-04-22 10:00] VITALS: BP 104/80; BMI 28.3
== END 2024-04-22 10:43 | disposition home or self-care (01) ==
PROVIDERS: PCP Internal Medicine; Visit Provider Advanced Practice Midwife
DX: N92.6 Irregular menstruation, unspecified (principal); D21.9 Benign neoplasm of connective and other soft tissue, unspecified; R10.2 Pelvic and perineal pain; Z32.02 Encounter for pregnancy test, result negative
CPT/HCPCS: 58100

== ENCOUNTER 2024-04-25 09:42 | Outpatient (REF) | payer OTHER, SELFPAY ==
--- NOTE | ~2024-04-25 | MR_ITS ---
EXAMINATION: MRI PELVIS WITH AND WITHOUT CONTRAST CLINICAL INFORMATION: UTERINE FIBROID LEIOMYOMA COMPARISON: CT abdomen and pelvis 04/19/2024 pelvic ultrasound 01/11/2024 , MR pelvis 01/13/2019 TECHNIQUE: Multiple routine MRI sequences through the pelvis were obtained before and after the uneventful administration of 7.5 mL of Gadavist gadolinium-based IV contrast. FINDINGS: UTERUS: Anteverted uterus has a normal configuration and measures 11.2 x 7.8 x 8.7 cm ([id number] x anterior-posterior x transverse). Multiple uterine myomas, for example a 5.7 x 4.1 x 4.8 cm submucosal right anterior body myoma distorting the endometrium with a minimal less than 25% submucosal component, previously measuring 6.3 x 4.8 x 6.5 cm decreased size, with some T2 bright signal suggesting cystic degeneration, a 3.2 cm subserosal T2 hypointense myoma in the anterior body of the uterus, previously 3.5 cm, and a 3 cm submucosal myoma with a minimal submucosal component and some T2 bright signal suggesting cystic degeneration previously 3.8 cm. There is a 1 small exophytic subserosal myoma the anterior body of the uterus measuring 0.9 cm which is unchanged in size and demonstrates residual enhancement, otherwise myomas are hypoenhancing. The endometrium is distorted by myomas measuring 0.6 cm in thickness. CERVIX: Nabothian cysts in the cervix. VAGINA: Unremarkable. OVARIES: The right ovary is unremarkable. The left ovary is remarkable for a 5.4 cm left ovarian cyst with a single thin internal septation new from prior ultrasound and prior MR almost certainly benign, recommend annual follow-up ultrasound. KIDNEYS AND VISUALIZED UPPER ABDOMEN: Two normally positioned kidneys are seen. No hydronephrosis. VISUALIZED GI TRACT: Unremarkable. BLADDER: Unremarkable. PELVIC FREE FLUID: Trace free fluid in the pelvis. LYMPH NODES: No pathologically enlarged lymph nodes. OSSEOUS STRUCTURES: No acute or suspicious osseous abnormalities. SOFT TISSUES: Small fat-containing umbilical hernia. MR/MR pelvis wo/w con IMPRESSION: 1. Multiple uterine myomas, several with some small submucosal components distorting the endometrium decreased in size from prior MR pelvis and the majority demonstrating no discernible enhancement compatible with posttreatment effect. 2. The left ovary is remarkable for a 5.4 cm left ovarian cyst with a single thin internal septation almost certainly benign, new from 01/11/2024, recommend annual follow-up pelvic ultrasound. Electronically signed by: Portia Martin MD 05/05/2024 02:44 PM EDT RP
[2024-04-25] MEDS: gadobutroL 7.5 ML VIAL IVPUSH (16:50)
== END 2024-04-25 09:43 | disposition home or self-care (01) ==
LOC: HO.MRI 09:42
PROVIDERS: PCP Internal Medicine; Visit Provider Obstetrics & Gynecology
DX: D25.9 Leiomyoma of uterus, unspecified (principal)
CPT/HCPCS: 72197; A9585

== ENCOUNTER 2024-04-29 09:08 | Outpatient (AMB) | payer OTHER, SELFPAY ==
[2024-04-29 09:11] VITALS: BMI 28.3
--- NOTE | 2024-04-29 09:11 | A.OFFVIS_ITS ---
Vital Signs 04/29/24 09:11 Height 5 ft 4 in Weight 165 lb BMI 28.3 Intake Visit Reasons: PRN follow up Leg pain bilateral Intake Note: PRN follow up for bilateral LE pain. Pt states bilateral LE burning, states not hot to touch or swollen. Left LE slightly worse than Right LE. Pt states she wears compression daily and elevates her legs at her desk and still feels pain. Pt states she recently went to the ED for groin pain and states that she has increasing thigh and lower leg pain. Accompanied by: Self / Same As Patient Allergies morphine [MORPHINE] Allergy (Intermediate, Verified 04/29/24 12:43) RASH, Hives sertraline Adverse Reaction (Unknown, Verified 04/29/24 12:43) Ulcerative Colitis flared seasonal Allergy (Mild, Uncoded 04/29/24 09:15) Sneezing HPI HPI PRN follow up Leg pain bilateral: Details: Very pleasant 53-year-old female presents for evaluation regarding lower extremity pain. She had actually seen us back in July of 2023. She had some venous testing at that point which was essentially negative. She had been doing well since that time with compression stockings. She has a generalized burning and tingling down the posterior aspects of bilateral lower extremities left more so than right. She also has a history of chronic pelvic and perineal pain. She is in the process of being worked up and possibly treated with a hysterectomy. She now presents to us for vascular evaluation [facility] Medical History Insomnia Overweight (BMI 25.0-29.9) Fatigue History of uterine fibroid Ulcerative colitis Surgical History Hx of colonoscopy (~11/14/19) History of surgical procedure History of tooth extraction History of cervical polypectomy Family History Daughter Breast cancer, Onset Age: 31 Maternal Grandmother Cancer Mother Varicose veins of both lower extremities with pain Social History Housing: Apartment Alcohol intake: current Alcohol intake frequency: holidays/special occasions only Alcohol type: wine Patient Tobacco Use Status: Never used Tobacco e-Cigarette/Vaping Use: Never Used Second Hand Smoke Exposure: No Special kali accommodation details: Yazdanism Current occupational status: employed Gender identity: Female Cognitive needs: No Hearing needs: No Vision needs: No Female Reproductive History Menstrual Age of Menarche: 12 Review of Systems Const All systems reviewed & are unremarkable except as noted in HPI and below Reports no additional complaints ENT Reports Normal hearing present Card Denies chest pain, Denies chest pain at rest, Denies chest pain with activity and Denies pedal edema Resp Denies cough GI Denies abdominal pain Musc Denies abnormal gait, Denies muscle cramps and Denies radiating pain into limb Skin/Breast Denies skin ulcer and Denies wounds Neuro Reports Normal hearing present and Denies abnormal gait Psych Reports no additional complaints Physical Exam Vital Signs: BMI result Body Mass Index 28.3 Const General: cooperative, healthy appearing and comfortable Orientation/consciousness: oriented to person, oriented to place and oriented to time HEENT Head: Yes normal to inspection Neck Neck: Yes normal visual inspection Carotids: no bruits Chest Chest palpation & inspection: normal inspection of the chest Resp Effort & Inspection: normal respiratory effort and able to speak in complete sentences Auscultation: clear to auscultation bilaterally, no crackles, no rales, no rhonchi and no wheezes Cardio Other: Palpable bilateral dorsalis pedis pulses Rate: regular rate Rhythm: regular rhythm Heart sounds: S1 normal heart sound present and S2 normal heart sound present Bruits: no carotid bruits Peripheral pulses: Peripheral pulses 2+ throughout GI Inspection: Yes normal to inspection Skin Wounds: no wounds Hair: normal Neuro General: oriented to person, oriented to place and oriented to time Cranial nerves: Yes CN's II-XII intact bilaterally and Yes Normal hearing present Cognition (Neuro): normal cognition Motor exam (neuro): 5/5 motor strength present throughout Extrem Other: venous exam: Some mild superficial varicose veins in the pretibial surface. Plus one edema General: No clubbing, No cyanosis and Yes edema Psych Appearance: grossly normal Mental Status: mental status grossly normal Speech and movement: Normal speech and movement present Assessment & Plan Assessment & Plan (1) Lower extremity pain: Code(s): M79.606 - Pain in leg, unspecified Category: Medical Qualifiers: Laterality: bilateral Qualified Code(s): M79.604 - Pain in right leg; M79.605 - Pain in left leg Plan: In short patient has bilateral lower extremity pain. This has been progressing for some time. It does not appear to be vascular in nature as she does have palpable bilateral dorsalis pedis pulses and previous venous testing has been essentially negative. We did discuss routine conservative measures including compression elevation and exercise. I do believe this may be no more neurogenic in nature. In addition the concern is her chronic pelvic pain as well. I am not sure if this is related to her large fibroid or her history of ulcerative colitis. I do think she would benefit from an evaluation by pain management. Even if she undergoes a hysterectomy she may need further evaluation regarding the cause of her pain. She will follow up with us on an as-needed basis. Thank you for allowing us to assist in her care. If there are any questions or concerns please do not hesitate to contact us. Coding Level of Care Code Est Pt Level 4 (42650) Diagnoses Pain in both lower extremities M79.604; M79.605 Laterality: bilateral
== END 2024-04-29 09:48 | disposition home or self-care (01) ==
PROVIDERS: PCP Internal Medicine; Visit Provider Surgery Vascular Surgery
DX: M79.604 Pain in right leg (principal); M79.605 Pain in left leg
CPT/HCPCS: 99214

== ENCOUNTER → 2024-04-29 09:08 | Outpatient (BNVA) | payer OTHER, SELFPAY | PROVIDERS: PCP Internal Medicine; Visit Provider Surgery Vascular Surgery ==

== ENCOUNTER 2024-04-29 12:42 | Outpatient (AMB) | payer OTHER, SELFPAY ==
--- NOTE | 2024-04-29 12:43 | A.OFFVIS_ITS ---
Intake Visit Reasons: Tv EMB results Intake Note: [phone] Slag Worker: Slag Worker Present Allergies morphine [MORPHINE] Allergy (Intermediate, Verified 04/29/24 12:43) RASH, Hives sertraline Adverse Reaction (Unknown, Verified 04/29/24 12:43) Ulcerative Colitis flared seasonal Allergy (Mild, Uncoded 04/29/24 09:15) Sneezing Is last menstrual period known: Yes HPI Comments Details: Tele [place] visit 12:47-12:53. I spent 5 minutes speaking with the patient on the phone plus an additional 5 minutes reviewing the chart and 5 minutes updating the medical record for a total of 15minutes. Patient presents via phone to discuss: Results of her endometrial biopsy. History of pelvic pain, irregular bleeding and large fibroid. Has a consult follow up with Dr. Reyes pending review of her records, MRI on 04/25/24 is pending read. REPLACED BY [facility] Medical History Insomnia Overweight (BMI 25.0-29.9) Fatigue History of uterine fibroid Ulcerative colitis Surgical History Hx of colonoscopy (~11/14/19) History of surgical procedure History of tooth extraction History of cervical polypectomy Family History Daughter Breast cancer, Onset Age: 31 Maternal Grandmother Cancer Mother Varicose veins of both lower extremities with pain Social History Housing: Apartment Alcohol intake: current Alcohol intake frequency: holidays/special occasions only Alcohol type: wine Patient Tobacco Use Status: Never used Tobacco e-Cigarette/Vaping Use: Never Used Second Hand Smoke Exposure: No Special kali accommodation details: Amish Current occupational status: employed Gender identity: Female Cognitive needs: No Hearing needs: No Vision needs: No Female Reproductive History Menstrual Age of Menarche: 12 Review of Systems Const All systems reviewed & are unremarkable except as noted in HPI and below Endo Reports no additional complaints Physical Exam Const General: cooperative, healthy appearing and no acute distress Psych Appearance: well kempt Attitude: cooperative Thought process: Normal thought process present Telehealth Telehealth Telehealth Platform: Telephone Location of provider rendering services: other Location of patient: address on file Patient Identification confirmed using: Name, : Yes Telehealth method: video Patient verbally consented to treatment: Yes Patient verbally consented to billing insurance company: Yes Patient informed of any privacy concerns related to visit: Yes Results Reviewed Results Reviewed: 5 Name: Caitlyn Cespedes Age/Sex: 53/F Attending: Tammy Berry CNM : 1970 Submitted by: Tammy Berry CNM Copies to: Sunday Gordon MD MR #: [id number] Status: DEP REF Collected: 04/22/24 Location: [facility] Received: 04/22/24 Diagnosis Endometrium, biopsy: - Mixed pattern: disordered weakly proliferative and focal secretory endometrium. - Few fragments with features of endometrial polyp. - Endocervical epithelium within normal limits. - No atypia identified. Clinical History Pre-Op Dx: AUB Post-Op Dx: Pending Microscopic Description Microscopic sections reviewed. Material Received EMB Gross Description Received in formalin labeled ?EMB? is a 3.0 x 3.0 x 0.5 cm aggregate of predominantly mucus and blood and multiple fragments of congested and hemorrhagic red-maroon tissue, submitted in toto in cassettes A1-A3. CEDS Copies To Sunday Gordon MD [facility] [address] [place] [address] Tammy Berry CNM [facility] [address] [place] [address] Patient: Caitlyn Cespedes Age/Sex: 53/F MR#: [id number] Page 1 of 2 Surgical Pathology [id number] NOTE: Unless otherwise stated, all tissue is formalin-fixed and paraffin- embedded. Some or all of the immunohistochemical tests reported herein may have been developed and their performance characteristics determined by [facility]. They have not been cleared or approved by the U.S. Food and Drug Administration (FDA). However, the FDA has determined that such clearance or approval is not necessary. This laboratory is certified under the Clinical Laboratory Improvement Amendments of 1988 (CLIA) as qualified to perform high complexity clinical laboratory testing. Electronically Signed By: Sukhjinder Sim MD 04/23/24 [id number] Patient: Caitlyn Cespedes Age/Sex: 53/F MR#: [id number] Assessment & Plan Assessment & Plan (1) Encounter to discuss test results: Code(s): Z71.2 - Person consulting for explanation of examination or test findings (2) Fibroids: Code(s): D21.9 - Benign neoplasm of connective and other soft tissue, unspecified (3) Irregular bleeding: Code(s): N92.6 - Irregular menstruation, unspecified (4) Pelvic pain: Code(s): R10.2 - Pelvic and perineal pain (5) Endometrial polyp: Code(s): N84.0 - Polyp of corpus uteri Plan Discussed: Endometrial biopsy results are benign, and include fragments of endometrial polyp- the recommendation would be a hysteroscopy removal although the patient is anticipating having a hysterectomy with Dr. Reyes, surgical date is not in booked, therefore hysteroscopy would not be necessary. EMB results to be faxed to Dr. Reyes office today. All of her questions and concerns were addressed to the best of my ability and shared decision making. She is agreeable to the plan of care. This note is constructed using voice recognition software. While every effort has been made to ensure accuracy, managing manager errors may have been included. Coding Level of Care Code Est Pt Level 3 (08083) Diagnoses Encounter to discuss test results Z71.2 Fibroids D21.9 Irregular bleeding N92.6 Pelvic pain R10.2 Endometrial polyp N84.0
== END 2024-04-29 13:16 | disposition home or self-care (01) ==
LOC: HO.HWS 12:42
PROVIDERS: PCP Internal Medicine; Visit Provider Advanced Practice Midwife
DX: Z71.2 Person consulting for explanation of examination or test findings (principal); D21.9 Benign neoplasm of connective and other soft tissue, unspecified; N92.6 Irregular menstruation, unspecified; R10.2 Pelvic and perineal pain; N84.0 Polyp of corpus uteri
CPT/HCPCS: 99213

== ENCOUNTER 2024-05-01 16:00 | Outpatient (RCR) | payer OTHER, SELFPAY ==
--- NOTE | 2024-03-20 11:05 | MHC.PT.EP ---
[facility] [place] Office [place] Office [place] Office [address] [phone] F: [phone] F: [phone] F: [phone] F: [phone] Physical Therapy Plan of Care Date of Evaluation: 03/19/24 Date of Surgery: n/a Diagnosis: Unspecified rotator cuff tear or rupture of right shoulder, not specified as traumatic Painful arc syndrome of right shoulder Assessment: Pt is a pleasant and motivated 53yo F who presents to PT with R shoulder pain. Pt presents to PT with current impairments in pain, decreased right shoulder ROM, decreased strength, soft tissue restrictions, and impaired posture. She is limited functionally by overhead ADLs, lifting, reaching, and sleeping. She is an excellent candidate for skilled PT in order to address current impairments to facilitate return to PLOF. She is recommended to be seen 2x/week for 4 weeks and will be reassessed at that time Frequency and Duration: The patient will be seen 2x/week for 4 weeks Short Term Goals: Pt will be I with HEP to promote self management of symptoms Pt will improve R shoulder flexion AROM by at least 10 degrees Pt will demonstrate improvements in postural awareness throughout the work day Machine Try Out Setter Goals: Pt will achieve full ROM and strength all planes of right shoulder to assist with lifting and reaching Pt will perform overhead ADLs with minimal to no pain or compensation of right shoulder Pt will demonstrate improvements in function as evidenced by statistically significant improvement in SPADI outcome measure Treatment Plan: Modalities to reduce pain, spasms and effusion. Manual therapy to restore motion and function. Therapeutic exercise to improve strength and flexibility. Neuromuscular re-education for posture and balance. Therapeutic activities to return to functional activities of daily living. Electronically signed by: Nereida Bee, PT, DPT Please sign and return to therapist. Thank you for your referral.
--- NOTE | 2024-06-09 16:00 | MHC.PT.DC ---
[facility] [place] Office [place] Office [place] Office [address] Kath Reagan [address] [phone] F: [phone] F: [phone] F: [phone] F: [phone] Physical Therapy Discharge Report Diagnosis: Unspecified rotator cuff tear or rupture of right shoulder, not specified as traumatic Painful arc syndrome of right shoulder Date of Surgery: n/a Date of Evaluation: 03/19/24 Date of Discharge: 06/09/24 Treatments to Date: 5 Cancellations to Date: 1 No Shows to Date: Discharge Status: Patient Elected to Stop Discharge Summary: Pt was seen for PT from 03/19/24-05/01/24. Her last attended appointment was 05/01/24. She cancelled her last scheduled appointment. She is being D/C from skilled PT as she has not attended or called to schedule in > 30 days. Pt current level of function unknown at this time Electronically signed by: Nereida Bee, PT, DPT Please sign and return to therapist. Thank you for your referral.
== END 2024-06-09 15:59 | disposition home or self-care (01) ==
LOC: HO.PT 16:00
PROVIDERS: PCP Internal Medicine; Visit Provider Physician Assistant
DX: M75.101 Unspecified rotator cuff tear or rupture of right shoulder, not specified as traumatic (principal)
CPT/HCPCS: 97110; 97140; 97161

== ENCOUNTER 2024-05-07 15:01 | Outpatient (REF) | payer OTHER, SELFPAY ==
[2024-05-07 16:24] LABS: MANUAL DIFF FLAG NO
[2024-05-07 17:08] LABS: Basophils Absolute Auto 0.1 X10*3/uL (0.0-0.2); Basophils Percent Auto 0.9 % (0-2); Eosinophils Absolute Auto 0.1 X10*3/uL (0.0-0.4); Eosinophils Percent Auto 1.7 % (0-4); Hematocrit 39.3 % (37.0-47.0); Hemoglobin 12.6 g/dl (12.0-16.0); Imm Gran Abs Auto 0.03 X10*3/uL (0.00-0.03); Imm Gran Pct Auto 0.4 % (0.0-0.4); Lymphocytes Absolute Auto 1.7 X10*3/uL (1.2-4.9); Lymphocytes Percent Auto 22.6 % (20-40); Mean Corpuscular HGB Conc 32.1 g/dl (31.0-35.0); Mean Corpuscular Hemoglobin 26.9 pg (27.0-33.0); Mean Platelet Volume 10.3 fL (9.4-12.3); Monocytes Absolute Auto 0.7 X10*3/uL (0.1-1.2); Monocytes Percent Auto 8.5 % (2-11); Neutrophils Percent Auto 65.9 % (45-73); Platelet Count 398 X10*3/uL (160-400); Red Blood Count 4.68 X10*6/uL (4.20-5.50); White Blood Count 7.6 X10*3/uL (4.8-10.8)
[2024-05-07 17:52] LABS: Alanine Aminotransferase 14 U/L (0-31); Albumin Level 4.3 g/dL (3.5-5.0); Alkaline Phosphatase 56 U/L (39-117); Anion Gap 12 (12-20); Aspartate Amino Transferase 14 U/L (5-31); Bilirubin Total 0.3 mg/dL (0.0-1.0); Blood Urea Nitrogen 14 mg/dL (9-16); C Reactive Protein 0.19 mg/dL (< or = 0.50); Calcium 10.1 mg/dL (8.4-10.2); Carbon Dioxide 29 mmol/L (22-29); Chloride 104 mmol/L (96-108); Estimated Glomerular Filt Rate 52; Glucose Random 81 mg/dL (60-115); Magnesium 1.8 mg/dL (1.6-2.6); Potassium 4.2 mmol/L (3.3-5.1); Sodium 141 mmol/L (135-145); Total Protein 7.5 g/dL (6.5-8.0)
[2024-05-07 18:00] LABS: Erythrocyte Sedimentation Rate 7 MM/HR (0-20)
[2024-05-07 18:16] LABS: Folate 13.8 ng/mL (> or = 4.0); Vitamin B12 997 pg/mL (200-900)
[2024-05-08 16:53] LABS: Lyme Abs Screen <0.90 index
== END 2024-05-07 15:02 | disposition home or self-care (01) ==
LOC: HO.LAB 15:01
PROVIDERS: PCP Internal Medicine; Visit Provider Internal Medicine
DX: R20.2 Paresthesia of skin (principal); G47.00 Insomnia, unspecified; D64.9 Anemia, unspecified; M79.7 Fibromyalgia; E53.8 Deficiency of other specified B group vitamins; E55.9 Vitamin D deficiency, unspecified; E83.42 Hypomagnesemia
CPT/HCPCS: 36415; 80053; 82306; 82607; 82746; 83735; 84443; 85025; 85652; 86140; 86617; 86618; 96127

== ENCOUNTER 2024-05-07 15:01 | Outpatient (AMB) | payer OTHER, SELFPAY ==
[2024-05-07 15:09] VITALS: BP 118/82; PULSE 76; O2SAT 93; BMI 28.7
--- NOTE | 2024-05-07 15:09 | A.OFFPC_ITS ---
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 Specialist Required: No Accompanied by: Self / Same As Patient Allergies morphine [MORPHINE] Allergy (Intermediate, Verified 05/09/24 09:59) RASH, Hives sertraline Adverse Reaction (Unknown, Verified 05/09/24 09:59) Ulcerative Colitis flared seasonal Allergy (Mild, Uncoded 05/09/24 09:59) Sneezing Medication List - Last Reconciled 05/07/24 by Sunday Gordon MD ondansetron 4 mg PO DAILY PRN 5 days Tobacco use date assessed: 05/07/24 Dental Screening Dental Screen Date: 05/07/24 Did you have a dental visit in the last 12 months?: Yes Did you have a dental problem in the last 6 months where you did not have access to dental care?: No Was dental information given to patient?: Patient has dentist HPI Facial pain and numbness HPI Details Patient comes in today for further evaluation of some concerning symptoms lately States that she has been experiencing on and off numbness over both sides of her face for the past 2 days Thinks that she has some issues over her neck in the past and is wondering if her current symptoms are related to her past cervical spine problems She reports that she has not been able to get any sleep lately due to increasing anxiety about her symptoms She denies any increased headaches or dizziness lately Denies any chest pains, no SOB No nausea/vomiting, no abdominal pain No change in bowel habits noted [facility] Medical History Insomnia Overweight (BMI 25.0-29.9) Fatigue History of uterine fibroid Ulcerative colitis Surgical History Hx of colonoscopy (~11/14/19) History of surgical procedure History of tooth extraction History of cervical polypectomy Family History Daughter Breast cancer, Onset Age: 31 Maternal Grandmother Cancer Mother Varicose veins of both lower extremities with pain Social History Housing: Apartment Alcohol intake: current Alcohol intake frequency: holidays/special occasions only Alcohol type: wine Patient Tobacco Use Status: Never used Tobacco e-Cigarette/Vaping Use: Never Used Second Hand Smoke Exposure: No Special kali accommodation details: [employer]ai Current occupational status: employed Gender identity: Female Cognitive needs: No Hearing needs: No Vision needs: No Female Reproductive History Menstrual Age of Menarche: 12 Questionnaire PHQ-9 Over the last 2 weeks, how often have you been bothered by any of the following problems? 1. Little interest or pleasure in doing things: not at all 2. Feeling down, depressed, or hopeless: not at all 3. Trouble falling or staying asleep, or sleeping too much: not at all 4. Feeling tired or having little energy: not at all 5. Poor appetite or overeating: not at all 6. Feeling bad about yourself - or that you are a failure or have let yourself or your family down: not at all 7. Trouble concentrating on things, such as reading the newspaper or watching television: not at all 8. Moving or speaking so slowly that other people could have noticed. Or the opposite - being so fidgety or restless that you have been moving around a lot more than usual: not at all 9. Thoughts that you would be better off or of hurting yourself in some way: not at all Total score: 0 Depression Screening Interpretation: Negative Depression Screening Done: Yes 84730 - PHQ-9 Billing: Yes Source: Developed by Drs. Pato Garay, Madison Hilario, Ney Shelton and colleagues, with an educational desi from [employer] Thrive Questionnaire Date Thrive assessed: 05/07/24 I am a: Patient What is your living situation today?: I have a steady place to live Within the past 12 months, did the food you bought not last and you didn't have the money to get more?: Never true Within the past 12 months, did you worry whether your food would run out before you got money to buy more?: Never true Do you have trouble paying for medicines?: No Do you have trouble getting transportation to medical appointments?: No Do you have trouble paying your heating and electricity bill?: No Do you have trouble taking care of your child, family member or friend?: No Do you have trouble with day-to-day activities such as bathing, preparing meals, shopping, managing finances, etc.?: No Are you currently unemployed and looking for a job?: No Are you interested in more education?: No Please select the resources that you would like help with: None Currently or been in a relationship where the following occur: No concerns reported THRIVE Score: 0 AUDIT C Alcohol Use Questionnaire (AUDIT-C) 1. How often do you have a drink containing alcohol?: Never 3. How often do you have six or more drinks on one occasion?: Never Total Score: 0 Score Reviewed/Action Taken: Yes PARRISH-7 AMB Questionnaire PARRISH-7 Date PARRISH - 7 assessed: 05/07/24 Feeling nervous, anxious, or on edge: 0 = Not at all Not being able to stop or control worryin = Not at all Worrying too much about different things: 0 = Not at all Trouble relaxin = Not at all Being so restless that it is hard to sit still: 0 = Not at all Becoming easily annoyed or irritable: 0 = Not at all Feeling afraid as if something awful might happen: 0 = Not at all Total PARRISH-7 score (0-4 normal; 5-9 mild; 10-14 moderate; 15-21 severe): 0 Source: Developed by Drs. Pato Garay, Madison Hilario, Ney Shelton and colleagues, with an educational desi from [employer]. Review of Systems Const Denies chills, Reports difficulty sleeping, Denies fatigue, Denies fever(s) and Denies headache(s) Eyes Denies blurry vision ENT Denies dysphagia, Denies dizziness, Denies headache(s), Reports neck pain (on and off), Denies odynophagia and Denies sore throat Card Denies chest pain, Denies chest pain with activity, Denies irregular heart rhythm, Denies palpitations and Denies dyspnea Resp Denies chest congestion, Denies cough and Denies dyspnea GI Denies abdominal pain, Denies constipation, Denies dysphagia, Denies heartburn, Denies diarrhea, Denies nausea, Denies odynophagia and Denies vomiting Denies difficulty voiding, Denies nocturia, Denies dysuria and Denies urinary urgency Musc Reports arthralgias (in the right shoulder - with sharp pains radiating into arms at times), Reports neck pain (on and off) and Reports numbness (on and off over both sides of the face) Skin/Breast Denies rash Neuro Denies dizziness, Denies headache(s) and Reports numbness (on and off over both sides of the face) Psych Reports anxiety (increasing) Endo Denies fatigue and Denies palpitations Physical exam (Primary Care) Vital Signs: Last Vital Signs Pulse 76 05/07/24 15:09 BP 118/82 05/07/24 15:09 Pulse Ox 93 05/07/24 15:09 Oxygen Delivery Method Room Air 05/07/24 15:09 BMI result Body Mass Index 28.7 Tobacco/Smoking Status: Tobacco use Status Tobacco use date assessed 05/07/24 05/07/24 15:11 Patient Tobacco Use Status Never used Tobacco 05/07/24 15:11 e-Cigarette/Vaping Use Never Used 05/07/24 15:11 PHQ-9: PHQ-9 Score PHQ-9: Total score 0 05/07/24 15:53 Depression Screening Interpretation: Negative Thrive Assessment: Date of Thrive Assessment Date Thrive assessed 05/07/24 05/07/24 15:11 Currently or been in a relationship where the following occur: No concerns reported Const General: no acute distress and alert Orientation/consciousness: patient oriented x3 HENOH Face and sinus: Yes normal facial exam, Yes sinuses nontender and Yes face symmetric Mouth: Normal oral and palatal mucosa present Throat: Yes posterior oropharynx normal and Yes tonsils normal (no TP congestion) Eyes Conjunctivae: conjunctivae normal Pupils: Equal, round and reactive pupils present EOM: EOMs intact bilaterally Neck Neck: Yes no lymphadenopathy Thyroid: Thyroid normal Resp Auscultation: clear to auscultation bilaterally, no rales and no wheezes Cardio Rate: regular rate Rhythm: regular rhythm Heart sounds: no murmurs GI Palpation (GI): Soft to palpation and nontender Auscultation: normal bowel sounds General: Yes no CVA tenderness Back/Spine/Pelvis Back: no CVA tenderness Cervical Spine: Cervical spine tenderness (minimal) Skin Rashes: no rashes Neuro General: patient oriented x3 Cranial nerves: Yes Facial sensation intact/muscles of mastication intact, Yes Equal, round and reactive pupils present and Yes Normal facial strength present Cognition (Neuro): normal cognition Extrem General: Yes no clubbing, cyanosis or edema Right upper extremity: shoulder/upper arm Details: tenderness Location: of the A-C joint; no swelling Assessment and Plan Assessment & Plan (1) Facial paresthesia: Code(s): R20.2 - Paresthesia of skin Plan: Will send patient for some labs AISHWARYA for further evaluation Have advised patient that her facial symptoms would not be from her neck issues, as radicular symptoms from the cervical spine would normally radiate into the shoulders and upper extremities and would not go up into the facial areas It is likely that her recent facial symptoms may be due to anxiety or perhaps from possible trigeminal neuralgia or TMJ but the symptoms are not exactly consistent with either of the 2 conditions Will start her on Gabapentin 100 mg Q HS for now and refer her as well to [facility] for further evaluation (2) Insomnia: Code(s): G47.00 - Insomnia, unspecified Qualifiers: Insomnia type: unspecified Qualified Code(s): G47.00 - Insomnia, unspecified Plan: Will start her for now on Triazolam 0.25 mg Q HS PRN Her issues with sleep lately has been mostly due to increasing anxiety Plan To return as scheduled next week for her annual physical examination Orders: Orders Complete Blood Count Auto Diff 05/07/24 D64.9 - Anemia, unspecified, R20.2 - Paresthesia of skin Erythrocyte Sedimentation Rate 05/07/24 M79.7 - Fibromyalgia, R20.2 - Paresthesia of skin C Reactive Protein 05/07/24 R20.2 - Paresthesia of skin Vitamin B12 and Folate 05/07/24 E53.8 - Deficiency of other specified B group vitamins, R20.2 - Paresthesia of skin Vitamin D 25-OH Total 05/07/24 E55.9 - Vitamin D deficiency, unspecified, R20.2 - Paresthesia of skin TSH reflex Free T4 05/07/24 R20.2 - Paresthesia of skin Comprehensive Met. Panel 05/07/24 R20.2 - Paresthesia of skin Magnesium 05/07/24 E83.42 - Hypomagnesemia, R20.2 - Paresthesia of skin Lyme IgG/IgM w/reflex to WB 05/07/24 R20.2 - Paresthesia of skin Referrals Neurology Referral R20.2 - Paresthesia of skin Medications: New gabapentin 100 mg PO BEDTIME 30 caps 0RF triazolam 0.25 mg PO BEDTIME PRN 30 tabs 0RF sleep/insomnia Coding Level of Care Code Est Pt Level 3 (91726) Diagnoses Facial paresthesia R20.2 Insomnia, unspecified type G47.00 Insomnia type: unspecified
== END 2024-05-07 16:53 | disposition home or self-care (01) ==
PROVIDERS: PCP Internal Medicine; Visit Provider Internal Medicine
DX: R20.2 Paresthesia of skin (principal); G47.00 Insomnia, unspecified

== ENCOUNTER 2024-05-09 09:50 | Outpatient (AMB) | payer OTHER, SELFPAY ==
[2024-05-09 09:58] VITALS: BP 133/77; PULSE 76; O2SAT 100; BMI 28.3
--- NOTE | 2024-05-09 09:58 | A.OFFVIS_ITS ---
Vital Signs 05/09/24 09:58 Height 5 ft 4 in Weight 165 lb BMI 28.3 BP 133/77 Blood Pressure Location Lt brachial Position Sitting Pulse 76 Pulse Source Pulse Oximeter Pulse Oximetry (%) 100 Oxygen Delivery Method Room Air Intake Visit Reasons: BILATERAL LEG PAIN Allergies morphine [MORPHINE] Allergy (Intermediate, Verified 05/09/24 09:59) RASH, Hives sertraline Adverse Reaction (Unknown, Verified 05/09/24 09:59) Ulcerative Colitis flared seasonal Allergy (Mild, Uncoded 05/09/24 09:59) Sneezing Medication List - Last Reconciled 05/09/24 by Laurel Fuentes gabapentin 100 mg PO BEDTIME ondansetron 4 mg PO DAILY PRN 5 days triazolam 0.25 mg PO BEDTIME PRN HPI Comments Details: Caitlyn presents to the office today for evaluation management of her bilateral lower extremity neuropathy. She has been suffering with this pain for approximately 3 weeks. Recently evaluated by vascular surgery and referred here for evaluation. Complaining of burning, numbness, tingling of both lower extremities starting from the groin down to the toes Reports symptoms are intermittent and worse during the day in the middle of the night. Recently started on gabapentin 100 mg at bedtime by her PCP. Only started the medication 1 day ago. She denies swelling, temperature or color changes of her lower extremity Denies history of diabetes or alcohol use She also is complaining of right-sided neck pain for the last 3 days. Denies inciting injury. Tenderness to palpation and decreased range of motion secondary to pain Pain today is rated as 7/10, constant. In terms of muscle damage condition is described as aching, spasming, shooting, dull, burning, tingling, pins and needles She is currently in the process of preparing for hysterectomy. 3 weeks ago she was evaluated in the emergency room diagnosed with fibroids. She will be having her surgery at [facility] but date has yet to be determined. Denies current use of nicotine, tobacco, alcohol or illicit substances Denies current use of anticoagulants Denies implantable devices, pacemaker or defibrillator [facility] Medical History Insomnia Overweight (BMI 25.0-29.9) Fatigue History of uterine fibroid Ulcerative colitis Surgical History Hx of colonoscopy (~11/14/19) History of surgical procedure History of tooth extraction History of cervical polypectomy Family History Daughter Breast cancer, Onset Age: 31 Maternal Grandmother Cancer Mother Varicose veins of both lower extremities with pain Social History Housing: Apartment Alcohol intake: current Alcohol intake frequency: holidays/special occasions only Alcohol type: wine Patient Tobacco Use Status: Never used Tobacco e-Cigarette/Vaping Use: Never Used Second Hand Smoke Exposure: No Special kali accommodation details: [employer] Current occupational status: employed Gender identity: Female Cognitive needs: No Hearing needs: No Vision needs: No Female Reproductive History Menstrual Age of Menarche: 12 Review of Systems Const All systems reviewed & are unremarkable except as noted in HPI and below Physical Exam Vital Signs: Last Vital Signs Pulse 76 05/09/24 09:58 BP 133/77 05/09/24 09:58 Pulse Ox 100 05/09/24 09:58 Oxygen Delivery Method Room Air 05/09/24 09:58 BMI result Body Mass Index 28.3 General: awake, alert, oriented. Answers questions appropriately. Fully engaged in examination. Skin: warm, dry, intact HEENT: Normocephalic. Hearing intact. Cardiac: External chest normal in appearance. Respiratory: No cough, audible wheezing or stridor. Abdomen: without gross distension. MS: No obvious swelling or deformities. Bilateral Lower Extremity: No swelling, wounds, rashes, skin discoloration. Light touch sensation intact CS: Decreased range of motion. TTP right>left Neurological: Oriented to person, place, time and situation. Thought process intact. No gait abnormalities appreciated. Psychiatric: Appropriate mood and affect. Good judgment and insight. Assessment & Plan Assessment & Plan (1) Cervicalgia: Code(s): M54.2 - Cervicalgia Category: Medical (2) Neuropathy: Comment: BLE Code(s): G62.9 - Polyneuropathy, unspecified Category: Medical Plan Caitlyn is a very pleasant 53-year-old female who presented to the office today for evaluation management of her bilateral lower extremity neuropathy and acute cervicalgia C-spine x-ray ordered for evaluation Order placed for PT eval and treat for her neck pain Methocarbamol 500 mg p.o. twice daily as needed. Patient advised on cautions for use. Do not take with alcohol or other WOOD ROOM HAND depressants including prescribed gabapentin and triazolam. EMG ordered for her bilateral lower extremity neuropathy All questions and concerns were answered, patient agrees with the plan. Follow- up after EMG/PT, sooner if needed Orders: Orders XR cervical spine w flex/ext Today M54.2 - Cervicalgia NE electromyogram (EMG) Today G62.9 - Polyneuropathy, unspecified PT Evaluation and Treatment Today M54.2 - Cervicalgia Medications: New 2 methocarbamol No driving while taking this medication. Do no take with alcohol or other WOOD ROOM HAND Depressants 500 mg PO BID PRN 60 tabs 0RF muscle spasm Coding Level of Care Code New Pt Level 4 (85874) Complex EM visit Add On G2211 Diagnoses Cervicalgia M54.2 Neuropathy G62.9
== END 2024-05-09 10:34 | disposition home or self-care (01) ==
PROVIDERS: PCP Internal Medicine; Referring Provider Surgery Vascular Surgery; Visit Provider Registered Nurse Emergency
DX: M54.2 Cervicalgia (principal); G62.9 Polyneuropathy, unspecified
CPT/HCPCS: 99204

== ENCOUNTER 2024-05-09 09:50 | Outpatient (REF) | payer OTHER, SELFPAY ==
--- NOTE | ~2024-05-09 | XR_ITS ---
EXAMINATION: XR CERVICAL SPINE CLINICAL INFORMATION: Cervicalgia Cervical spine pain for a couple of weeks. Patient denies injury COMPARISON: Cervical spine 12/02/2017 TECHNIQUE: 7 views of the cervical spine, inclusive of flexion and extension views and bilateral oblique views, were obtained. FINDINGS: The tip of the odontoid is obscured on the open-mouth view. There is mild reversal of the usual cervical lordosis. There is no fracture. Prevertebral soft tissues are within normal limits. The height of the vertebral bodies is well-maintained. There is mild disc space narrowing with anterior marginal osteophyte formation at C5-C6, similar to the prior study. The neural foramina are widely patent. There is slight anterolisthesis of C3 with respect to C4 and C4 respect to C5 which is unchanged on flexion and reduces on extension. XR/XR cervical spine w flex/ext IMPRESSION: 1. Mild degenerative disc disease at C5-C6. 2. Mild anterolisthesis of C3 with respect to C4 and C4 respect to C5, as discussed above. Electronically signed by: Isabelle Mercer MD 05/19/2024 02:39 PM EDT
== END 2024-05-09 09:51 | disposition home or self-care (01) ==
LOC: HO.XRAY 09:50
PROVIDERS: PCP Internal Medicine; Referring Provider Surgery Vascular Surgery; Visit Provider Registered Nurse Emergency
DX: M54.2 Cervicalgia (principal)
CPT/HCPCS: 72052

== ENCOUNTER 2024-05-13 09:01 | Outpatient (AMB) | payer OTHER, SELFPAY ==
[2024-05-13 09:04] VITALS: BP 108/72; PULSE 67; O2SAT 98; BMI 28.7
--- NOTE | 2024-05-13 09:04 | A.OFFPC_ITS ---
Vital Signs 05/13/24 09:04 Height 5 ft 4 in Weight 167 lb 6 oz BMI 28.7 BP 108/72 Blood Pressure Location Lt brachial Position Sitting Pulse 67 Pulse Source Pulse Oximeter Pulse Oximetry (%) 98 Oxygen Delivery Method Room Air Intake Visit Reasons: Annual Exam Body Corporate Manager Required: No Accompanied by: Self / Same As Patient Allergies morphine [MORPHINE] Allergy (Intermediate, Verified 05/13/24 09:24) RASH, Hives sertraline Adverse Reaction (Unknown, Verified 05/13/24 09:24) Ulcerative Colitis flared seasonal Allergy (Mild, Uncoded 05/13/24 09:24) Sneezing Medication List - Last Reconciled 05/13/24 by Sunday Gordon MD gabapentin 100 mg PO BEDTIME methocarbamol 500 mg PO BID PRN ondansetron 4 mg PO DAILY PRN 5 days triazolam 0.25 mg PO BEDTIME PRN Tobacco use date assessed: 05/13/24 Dental Screening Dental Screen Date: 05/13/24 Did you have a dental visit in the last 12 months?: Yes Did you have a dental problem in the last 6 months where you did not have access to dental care?: No Was dental information given to patient?: Patient has dentist HPI Annual Exam HPI Details Patient comes in today for her annual physical examination States that she continues to experience on and off numbness over both sides of her face She has also been experiencing recurrent headaches lately, especially over the right side of her head and face, and she has noticed some photosensitivity when she has her headaches lately States that she has never been diagnosed with migraines in the past but her mother reportedly had an aneurysm and she is concerned if this may be hereditary and she may also have an aneurysm that is potentially causing her symptoms She was recently sent for some labs to look into her symptoms and so far, they have all come back normal She denies any dizziness Denies any increased SOB or chest pains but states that she has been experiencing a recurrent fluttering of her heart again lately Notes that these can come on at any time, are not related to activity or exertion and usually lasts for just a few seconds before spontaneously subsiding No nausea/vomiting, no abdominal pain No change in bowel habits noted She denies any acute urinary symptoms She is up-to-date with her cancer screenings - she will be due for her repeat colonoscopy next year (2024) She had her annual mammogram done in February 2024 and gynecology exam and pap smear done just a few weeks ago She had her follow up labs done last week - to discuss her results [facility] Medical History (Updated 05/14/24 @ 04:42 by Sunday Gordon MD) Left ovarian cyst Uterine leiomyoma Insomnia Overweight (BMI 25.0-29.9) Fatigue History of uterine fibroid Ulcerative colitis Surgical History Hx of colonoscopy (~11/14/19) History of surgical procedure History of tooth extraction History of cervical polypectomy Family History Daughter Breast cancer, Onset Age: 31 Maternal Grandmother Cancer Mother Varicose veins of both lower extremities with pain Social History Housing: Apartment Alcohol intake: current Alcohol intake frequency: holidays/special occasions only Alcohol type: wine Patient Tobacco Use Status: Never used Tobacco e-Cigarette/Vaping Use: Never Used Second Hand Smoke Exposure: No Special kali accommodation details: [place]ai Current occupational status: employed Gender identity: Female Cognitive needs: No Hearing needs: No Vision needs: No Female Reproductive History Menstrual Age of Menarche: 12 Questionnaire PHQ-9 Over the last 2 weeks, how often have you been bothered by any of the following problems? 1. Little interest or pleasure in doing things: more than half the days 2. Feeling down, depressed, or hopeless: more than half the days 3. Trouble falling or staying asleep, or sleeping too much: nearly every day 4. Feeling tired or having little energy: more than half the days 5. Poor appetite or overeating: more than half the days 6. Feeling bad about yourself - or that you are a failure or have let yourself or your family down: several days 7. Trouble concentrating on things, such as reading the newspaper or watching television: more than half the days 8. Moving or speaking so slowly that other people could have noticed. Or the opposite - being so fidgety or restless that you have been moving around a lot more than usual: not at all 9. Thoughts that you would be better off or of hurting yourself in some way: not at all Total score: 14 Depression Screening Interpretation: Positive Depression Screening Follow-up: Existing condition and In treatment Depression Screening Done: Yes 36228 - PHQ-9 Billing: Yes Source: Developed by Drs. Pato Garay, Madison Hilario, Ney Shelton and colleagues, with an educational desi from [employer]. Thrive Questionnaire Date Thrive assessed: 05/13/24 I am a: Patient What is your living situation today?: I have a steady place to live Within the past 12 months, did the food you bought not last and you didn't have the money to get more?: Never true Within the past 12 months, did you worry whether your food would run out before you got money to buy more?: Never true Do you have trouble paying for medicines?: No Do you have trouble getting transportation to medical appointments?: No Do you have trouble paying your heating and electricity bill?: No Do you have trouble taking care of your child, family member or friend?: No Do you have trouble with day-to-day activities such as bathing, preparing meals, shopping, managing finances, etc.?: No Are you interested in more education?: No Please select the resources that you would like help with: None Currently or been in a relationship where the following occur: I choose not to answer THRIVE Score: 0 AUDIT C Alcohol Use Questionnaire (AUDIT-C) 1. How often do you have a drink containing alcohol?: Monthly or less 2. How many drinks containing alcohol do you have on a typical day when you are drinking?: 1 or 2 3. How often do you have six or more drinks on one occasion?: Never Total Score: 1 Score Reviewed/Action Taken: Yes PARRISH-7 AMB Questionnaire PARRISH-7 Date PARRISH - 7 assessed: 05/13/24 Feeling nervous, anxious, or on edge: 2 = More than half the days Not being able to stop or control worryin = More than half the days Worrying too much about different things: 2 = More than half the days Trouble relaxin = More than half the days Being so restless that it is hard to sit still: 2 = More than half the days Becoming easily annoyed or irritable: 1 = Several days Feeling afraid as if something awful might happen: 0 = Not at all Total PARRISH-7 score (0-4 normal; 5-9 mild; 10-14 moderate; 15-21 severe): 11 Source: Developed by Drs. Pato Garay, Madison Hilario, Ney Shelton and colleagues, with an educational desi from [employer]. Review of Systems Const Denies chills, Reports difficulty sleeping, Denies fatigue, Denies fever(s), Reports headache(s) (on and off, mostly right-sided - see HPI) and Denies mal aise Eyes Denies blurry vision, Denies change in vision, Denies irritation, Denies itchy eyes and Reports photophobia ENT Denies dysphagia, Denies dizziness, Denies otalgia, Reports headache(s) (on and off, mostly right-sided - see HPI), Denies nasal congestion, Reports neck pain (on and off), Denies odynophagia, Denies sinus pain and Denies sore throat Card Denies chest pain, Denies rapid heart rate, Denies irregular heart rhythm, Denies palpitations and Denies dyspnea Resp Denies chest congestion, Denies cough, Denies dyspnea and Denies wheezing GI Denies abdominal pain, Denies bloating, Denies constipation, Denies dysphagia, Denies heartburn, Denies diarrhea, Denies nausea, Denies odynophagia and Denies vomiting Denies hematuria, Denies urinary frequency, Denies dysuria, Denies urinary incontinence and Denies urinary urgency Musc Reports arthralgias (in the right shoulder - with sharp pains radiating into arms at times), Reports neck pain (on and off) and Reports numbness (on and off over both sides of the face) Skin/Breast Denies breast pain, Denies breast mass, Denies change in pigmentation, Denies lesions, Denies rash and Denies unusual bruising Neuro Denies dizziness, Reports headache(s) (on and off, mostly right-sided - see HPI), Reports numbness (on and off over both sides of the face) and Denies paresthesias Psych Reports anxiety (increasing) and Denies depression Endo Denies fatigue and Denies palpitations Eder/Lymph Denies easy bruising Aller/Immun Denies itchy eyes and Denies wheezing Physical exam (Primary Care) Vital Signs: Last Vital Signs Pulse 67 05/13/24 09:04 BP 108/72 05/13/24 09:04 Pulse Ox 98 05/13/24 09:04 Oxygen Delivery Method Room Air 05/13/24 09:04 BMI result Body Mass Index 28.7 Tobacco/Smoking Status: Tobacco use Status Tobacco use date assessed 05/13/24 05/13/24 09:09 Patient Tobacco Use Status Never used Tobacco 05/13/24 09:09 e-Cigarette/Vaping Use Never Used 05/13/24 09:09 PHQ-9: PHQ-9 Score PHQ-9: Total score 14 05/13/24 21:51 Depression Screening Interpretation: Positive Depression Screening Follow-up: Existing condition and In treatment Thrive Assessment: Date of Thrive Assessment Date Thrive assessed 05/13/24 05/13/24 09:09 Currently or been in a relationship where the following occur: I choose not to answer Const General: no acute distress, alert and awake Orientation/consciousness: patient oriented x3 HENMT Head: Yes normocephalic and Yes atraumatic Ears: external ears normal, TM's normal bilaterally and EAC's normal General nose exam: No nasal discharge present Face and sinus: Yes normal facial exam and Yes sinuses nontender Teeth and gingiva: dentition normal Throat: Yes posterior oropharynx normal and Yes tonsils normal (no TP congestion) Eyes Eyelids: Yes eyelids normal Conjunctivae: conjunctivae normal Pupils: Equal, round and reactive pupils present EOM: EOMs intact bilaterally Direct Ophthalmoscopy: photophobia Neck Neck: Yes no lymphadenopathy and Yes supple Thyroid: Thyroid normal Resp Auscultation: clear to auscultation bilaterally, no rales and no wheezes Cardio Rate: regular rate Rhythm: regular rhythm Heart sounds: no murmurs GI Palpation (GI): Soft to palpation, nontender and No hepatosplenomegaly present Auscultation: normal bowel sounds General: Yes no CVA tenderness Back/Spine/Pelvis Back: no CVA tenderness Thoracic/Lumbar Spine: thoracic and lumbar spine normal to inspection Skin Lesions: no lesions Rashes: no rashes Neuro General: patient oriented x3 Cranial nerves: Yes Facial sensation intact/muscles of mastication intact, Yes Equal, round and reactive pupils present and Yes Normal facial strength present Cognition (Neuro): normal cognition Gait exam (Neuro): Normal gait present Extrem General: Yes no clubbing, cyanosis or edema Office Procedures Flu Questionnaire Does the patient have a severe egg allergy?: No Immunizations Fluarix Triv [id number] (PF) 45 mcg (15 mcg x 3)/0.5 mL IM syringe Performing Provider: Sunday Gordon MD [facility] Documented (not given) by: MORRIS Crawford on 05/13/24 09:14 Reason Not Given: Patient Refused Results Reviewed Results Reviewed: Laboratory Tests 05/07/24 16:21 WBC 7.6 Hgb 12.6 Hct 39.3 Plt Count 398 D ESR 7 Sodium 141 Potassium 4.2 D Creatinine 1.10 Estimated GFR 52 Calcium 10.1 D Magnesium 1.8 AST 14 ALT 14 C-Reactive Protein 0.19 Vitamin B12 997 H 25-OH Vitamin D Total 28.0 L TSH 2.00 Lyme Screen IgG & IgM <0.90 Coding Level of Care Code Est Pt Prev Care 40-64y(64655) Diagnoses Annual physical exam Z00.00 Acute nonintractable headache, unspecified headache type R51.9 Headache type: unspecified Headache chronicity pattern: acute headache Intractability: not intractable Facial paresthesia R20.2 Cervicalgia M54.2 Ulcerative colitis without complications, unspecified location K51.90 Ulcerative colitis location: unspecified ulcerative colitis location Digestive disease complication type: without complication Uterine leiomyoma, unspecified location D25.9 Uterine leiomyoma location: unspecified location Left ovarian cyst N83.202 Primary osteoarthritis, right shoulder M19.011 Varicose veins of bilateral lower extremities with pain I83.813 Neuropathy G62.9 Insomnia, unspecified type G47.00 Insomnia type: unspecified Overweight (BMI 25.0-29.9) E66.3 Assessment & Plan Assessment & Plan (1) Annual physical exam: Code(s): Z00.00 - Encounter for general adult medical examination without abnormal findings Category: Medical Plan: Results of her labs done last week reviewed and discussed with patient She is currently up-to-date with all of her cancer screenings (2) Headache: Code(s): R51.9 - Headache, unspecified Category: Medical Qualifiers: Headache type: unspecified Headache chronicity pattern: acute headache Intractability: not intractable Qualified Code(s): R51.9 - Headache, unspecified Plan: Suspect migraine headache or variant Patient takes OTC Ibuprofen PRN with mild and temporary relief of her symptoms although she avoids taking too much of this for fear of aggravating her UC Due to her recently increasing headaches and facial paresthesia, will send her for a head CT for further evaluation (3) Facial paresthesia: Code(s): R20.2 - Paresthesia of skin Category: Medical Plan: Recent work ups done, including Lyme disease titer, were all negative Have discussed with patient that this is likely multifactorial, including possibly due to or related to her headaches, which I suspect may be a migraine headache or variant, as well as related to her anxiety She will be sent for a head CT for further evaluation and has also been referred to neurology for further evaluation and management last week and is currently just waiting for an appointment to be scheduled Continue Gabapentin 100 mg Q HS for now (4) Cervicalgia: Code(s): M54.2 - Cervicalgia Category: Medical Plan: She recently had cervical spine x-rays done but report is not yet available Continue Methocarbamol 500 mg BID PRN (5) Ulcerative colitis: Code(s): K51.90 - Ulcerative colitis, unspecified, without complications Category: Medical Qualifiers: Ulcerative colitis location: unspecified ulcerative colitis location Digestive disease complication type: without complication Qualified Code(s): K51.90 - Ulcerative colitis, unspecified, without complications Plan: Stable/controlled She was on Apriso 1.5 gm Q AM in the past but she stopped taking this last year and has been trying to eat healthier and hoping that diet modification would help her cut back on her need to take her Rx Follow up with GI as scheduled (6) Uterine leiomyoma: Comment: S/P uterine artery embolization in 2019 Code(s): D25.9 - Leiomyoma of uterus, unspecified Category: Medical Qualifiers: Uterine leiomyoma location: unspecified location Qualified Code(s): D25.9 - Leiomyoma of uterus, unspecified Plan: S/P Tx with [place] in 2019 Recent pelvic MRI done revealed (+) multiple uterine myomas, several with some small submucosal components distorting the endometrium, decreased in size from prior MR pelvis and the majority demonstrating no discernible enhancement compatible with posttreatment effect Follow up with gynecology as scheduled - she anticipates that she will be getting a hysterectomy done soon but no date for surgery has been scheduled yet (7) Left ovarian cyst: Code(s): N83.202 - Unspecified ovarian cyst, left side Category: Medical Plan: Her recent pelvic MRI also revealed (+) 5.4 cm left ovarian cyst with a single thin internal septation almost certainly benign, new from 01/11/2024 Recommend annual follow-up pelvic ultrasound Follow up with gynecology as scheduled (8) Primary osteoarthritis, right shoulder: Code(s): M19.011 - Primary osteoarthritis, right shoulder Category: Medical Plan: Follow up with orthpedics as scheduled (9) Varicose veins of bilateral lower extremities with pain: Code(s): I83.813 - Varicose veins of bilateral lower extremities with pain Category: Medical Plan: Follow up with vascular surgery as scheduled (10) Neuropathy: Comment: BLE Code(s): G62.9 - Polyneuropathy, unspecified Category: Medical Plan: Continue Gabapentin 100 mg Q HS She was seen by pain management recently and has been sent for EMG and NCV for further evaluation - these are currently still awaiting scheduling (11) Insomnia: Code(s): G47.00 - Insomnia, unspecified Category: Medical Qualifiers: Insomnia type: unspecified Qualified Code(s): G47.00 - Insomnia, unspecified Plan: Sleep hygiene reinforced Her issues with sleep are likely made worse by her current symptoms as well as her increasing anxiety Continue Triazolam 0.25 mg Q HS PRN (12) Overweight (BMI 25.0-29.9): Code(s): E66.3 - Overweight Category: Medical Plan: Reinforced diet/exercise as tolerated/lose weight Plan Follow up in 6 months Orders: Orders Influenza [id number] Immunization 05/13/24 Z23 - Encounter for immunization CT head/brain wo IV con 05/13/24 R20.2 - Paresthesia of skin, R51.9 - Headache, unspecified
== END 2024-05-13 09:59 | disposition home or self-care (01) ==
PROVIDERS: PCP Internal Medicine; Visit Provider Internal Medicine
DX: Z00.00 Encounter for general adult medical examination without abnormal findings (principal); K51.90 Ulcerative colitis, unspecified, without complications; E66.3 Overweight; Z68.28 Body mass index [BMI] 28.0-28.9, adult; R51.9 Headache, unspecified; R20.2 Paresthesia of skin; M54.2 Cervicalgia; D25.9 Leiomyoma of uterus, unspecified; N83.202 Unspecified ovarian cyst, left side; M19.011 Primary osteoarthritis, right shoulder; I83.813 Varicose veins of bilateral lower extremities with pain; G62.9 Polyneuropathy, unspecified

== ENCOUNTER → 2024-05-13 09:01 | Outpatient (BNVA) | payer OTHER, SELFPAY | PROVIDERS: PCP Internal Medicine; Visit Provider Internal Medicine | DX: Z00.01 Encounter for general adult medical examination with abnormal findings (principal); R51.9 Headache, unspecified; R20.2 Paresthesia of skin; M54.2 Cervicalgia; K51.90 Ulcerative colitis, unspecified, without complications; D25.9 Leiomyoma of uterus, unspecified; N83.202 Unspecified ovarian cyst, left side; M19.011 Primary osteoarthritis, right shoulder; I83.813 Varicose veins of bilateral lower extremities with pain; G62.9 Polyneuropathy, unspecified; G47.00 Insomnia, unspecified; E66.3 Overweight; Z79.899 Other long term (current) drug therapy; Z28.21 Immunization not carried out because of patient refusal | CPT/HCPCS: 90471; 96127 ==

== ENCOUNTER 2024-05-14 14:02 | Outpatient (REF) | payer OTHER, SELFPAY ==
--- NOTE | ~2024-05-14 | CT_ITS ---
EXAMINATION: CT HEAD WITHOUT CONTRAST CLINICAL INFORMATION: Paresthesia of skin COMPARISON: None available. TECHNIQUE: Contiguous axial imaging was performed from the skull base to vertex without intravenous administration of contrast. This CT examination was performed using dose optimization techniques as appropriate, variously including the following: *Automated exposure control *Adjustment of mA and/or kV according to patient size (this includes techniques or standardized protocols for targeted exams where dose is matched to indication/reason for exam; i.e. extremities or head) *Use of iterative reconstruction technique DLP: 655 mGy-cm FINDINGS: No intra-axial or extra-axial hemorrhage. No acute territorial infarct. Ventricles and sulci appear normal. Preservation of beauchamp-white matter differentiation. No mass, mass effect, or midline shift. No fracture. The mastoid air cells and visualized paranasal sinuses are clear. CT/CT head/brain wo IV con IMPRESSION: No acute intracranial pathology. Electronically signed by: Pio Ash MD 05/14/2024 05:01 PM EDT
== END 2024-05-14 14:03 | disposition home or self-care (01) ==
LOC: HO.CT 14:02
PROVIDERS: PCP Internal Medicine; Visit Provider Internal Medicine
DX: R20.2 Paresthesia of skin (principal); R51.9 Headache, unspecified
CPT/HCPCS: 70450

== ENCOUNTER 2024-05-17 12:03 | Outpatient (AMB) | payer OTHER, SELFPAY ==
[2024-05-17 12:07] VITALS: BP 138/82; PULSE 68; TEMP 36.7; O2SAT 97
--- NOTE | 2024-05-17 12:07 | AM.OFFWIN_ITS ---
Intake Vital Signs 05/17/24 12:07 Height 5 ft 4 in BP 138/82 Blood Pressure Location Lt brachial Position Sitting Pulse 68 Pulse Source Pulse Oximeter Temp 98.0 F Temp Source Oral Pulse Oximetry (%) 97 Intake Visit Reasons: EP, Rt foot finger pain Intake Note: pt is here for right foot, toe pain. patient states she stubbed her toes due to walking in the dark in her home. Patient Tobacco Use Status: Never used Tobacco Allergies morphine [MORPHINE] Allergy (Intermediate, Verified 06/11/24 12:45) RASH, Hives sertraline Adverse Reaction (Unknown, Verified 06/11/24 12:45) Ulcerative Colitis flared seasonal Allergy (Mild, Uncoded 06/11/24 12:45) Sneezing Do you need a note to return to daycare/school/sports/work: No HPI EP, Rt foot finger pain HPI Details Patient is a 53-year-old established patient at the walkin, who comes in complaining of blunt trauma to her right foot, when she stubbed her toe. She has increased pain with wearing a shoe and walk-in. No weakness numbness or tingling reported. No prior injury to the area. She is an employee at [employer]. [facility] Medical History (Updated 05/14/24 @ 04:42 by Sunday Gordon MD) Left ovarian cyst Uterine leiomyoma Insomnia Overweight (BMI 25.0-29.9) Fatigue History of uterine fibroid Ulcerative colitis Surgical History Hx of colonoscopy (~11/14/19) History of surgical procedure History of tooth extraction History of cervical polypectomy Family History Daughter Breast cancer, Onset Age: 31 Maternal Grandmother Cancer Mother Varicose veins of both lower extremities with pain Social History Housing: Apartment Alcohol intake: current Alcohol intake frequency: holidays/special occasions only Alcohol type: wine Patient Tobacco Use Status: Never used Tobacco e-Cigarette/Vaping Use: Never Used Second Hand Smoke Exposure: No Special kali accommodation details: Jewish Current occupational status: employed Gender identity: Female Cognitive needs: No Hearing needs: No Vision needs: No Female Reproductive History Menstrual Age of Menarche: 12 Physical Exam Vital Signs: Last Vital Signs Temp 98.0 F 05/17/24 12:07 Pulse 68 05/17/24 12:07 BP 138/82 05/17/24 12:07 Pulse Ox 97 05/17/24 12:07 Extrem Other: There is ecchymosis, edema and tenderness to the DIP and PIP of the 2nd toe on the right foot. No gross deformity, and good range of motion and strength, however slightly limited due to pain. No other apparent trauma to the foot. Assessment & Plan Assessment & Plan (1) Bruised toe: Code(s): S90.129A - Contusion of unspecified lesser toe(s) without damage to nail, initial encounter Plan: Patient is a 53-year-old female that has an ecchymotic 2nd toe on the right foot, suspicious for fracture however XR is not available today. I did put an order in for XR which she can get done at the hospital at her convenience, as she works there. In the meantime, she was fitted into a post-op shoe today, to splint the phalanges. This gave her significant relief with ambulation, and she will be able to tolerate walking. She should elevate the foot when able, and can continue icing it until the swelling is resolved. She can take oral anti- inflammatories as needed. She declines needing a work note, and should follow up with results of the x-ray when available. Orders: Orders XR foot RT min 3V 05/19/24 S93.504A - Unspecified sprain of right lesser toe(s), initial encounter Coding Level of Care Code Est Pt Level 3 (90531) Diagnoses Bruised toe S90.129A
== END 2024-05-17 13:44 | disposition home or self-care (01) ==
PROVIDERS: PCP Internal Medicine; Visit Provider Physician Assistant Medical
DX: S90.129A Contusion of unspecified lesser toe(s) without damage to nail, initial encounter (principal)

== ENCOUNTER → 2024-05-17 12:03 | Outpatient (BNVA) | payer OTHER, SELFPAY | PROVIDERS: PCP Internal Medicine ==

== ENCOUNTER 2024-05-19 08:09 | Outpatient (REF) | payer OTHER, SELFPAY ==
--- NOTE | ~2024-05-19 | XR_ITS ---
EXAMINATION: XR FOOT, RIGHT CLINICAL INFORMATION: Unspecified sprain of the right toes, initial encounter COMPARISON: None available. TECHNIQUE: AP, lateral, and oblique views of the right foot. FINDINGS: The bones and soft tissues are normal. No fracture. Alignment is anatomic. Joint spaces are maintained. XR/XR foot RT min 3V IMPRESSION: No acute abnormality in the right foot Electronically signed by: Pato Mendez MD 05/19/2024 09:20 AM EDT
== END 2024-05-19 08:10 | disposition home or self-care (01) ==
LOC: HO.XRAY 08:09
PROVIDERS: PCP Internal Medicine; Visit Provider Physician Assistant Medical
DX: S93.504A Unspecified sprain of right lesser toe(s), initial encounter (principal)
CPT/HCPCS: 73630

== ENCOUNTER 2024-05-21 09:12 | Outpatient (AMB) | payer OTHER, SELFPAY ==
[2024-05-21 09:19] VITALS: BP 133/71; PULSE 69; O2SAT 100; BMI 28.8
--- NOTE | 2024-05-21 09:19 | A.OFFVIS_ITS ---
Vital Signs 05/21/24 09:19 Height 5 ft 4 in Weight 168 lb BMI 28.8 BP 133/71 Blood Pressure Location Rt brachial Position Sitting Pulse 69 Pulse Source Pulse Oximeter Pulse Oximetry (%) 100 Oxygen Delivery Method Room Air Intake Visit Reasons: Discuss X-Ray Results Allergies morphine [MORPHINE] Allergy (Intermediate, Verified 05/21/24 09:20) RASH, Hives sertraline Adverse Reaction (Unknown, Verified 05/21/24 09:20) Ulcerative Colitis flared seasonal Allergy (Mild, Uncoded 05/21/24 09:20) Sneezing Medication List - Last Reconciled 05/21/24 by Laurel Fuentes gabapentin 100 mg PO BEDTIME methocarbamol 500 mg PO BID PRN ondansetron 4 mg PO DAILY PRN 5 days triazolam 0.25 mg PO BEDTIME PRN HPI Comments Details: Patient presents back to the office today for follow-up cervicalgia, review of recent x-ray X-ray reviewed, results as per below Finding minimal relief with methocarbamol. She is no longer taking the medication that was she was prescribed by her PCP for sleep as it was not helping. Now utilizing melatonin at bedtime with good effect Continues with right-sided neck pain, worse with movement in minimally tender to palpation at the base of the occiput. Has an appointment with neurology next month, planning to call and be put on wait list for a sooner appointment Taking ibuprofen as needed and finds this gives her the most relief Intake note: Caitlyn presents to the office today for evaluation management of her bilateral lower extremity neuropathy. She has been suffering with this pain for approximately 3 weeks. Recently evaluated by vascular surgery and referred here for evaluation. Complaining of burning, numbness, tingling of both lower extremities starting from the groin down to the toes Reports symptoms are intermittent and worse during the day in the middle of the night. Recently started on gabapentin 100 mg at bedtime by her PCP. Only started the medication 1 day ago. She denies swelling, temperature or color changes of her lower extremity Denies history of diabetes or alcohol use She also is complaining of right-sided neck pain for the last 3 days. Denies inciting injury. Tenderness to palpation and decreased range of motion secondary to pain Pain today is rated as 7/10, constant. In terms of muscle damage condition is described as aching, spasming, shooting, dull, burning, tingling, pins and needles She is currently in the process of preparing for hysterectomy. 3 weeks ago she was evaluated in the emergency room diagnosed with fibroids. She will be having her surgery at [facility] but date has yet to be determined. Denies current use of nicotine, tobacco, alcohol or illicit substances Denies current use of anticoagulants Denies implantable devices, pacemaker or defibrillator [facility] Medical History (Updated 05/14/24 @ 04:42 by Sunday Gordon MD) Left ovarian cyst Uterine leiomyoma Insomnia Overweight (BMI 25.0-29.9) Fatigue History of uterine fibroid Ulcerative colitis Surgical History Hx of colonoscopy (~11/14/19) History of surgical procedure History of tooth extraction History of cervical polypectomy Family History Daughter Breast cancer, Onset Age: 31 Maternal Grandmother Cancer Mother Varicose veins of both lower extremities with pain Social History Housing: Apartment Alcohol intake: current Alcohol intake frequency: holidays/special occasions only Alcohol type: wine Patient Tobacco Use Status: Never used Tobacco e-Cigarette/Vaping Use: Never Used Second Hand Smoke Exposure: No Special kali accommodation details: Zoroastrian Current occupational status: employed Gender identity: Female Cognitive needs: No Hearing needs: No Vision needs: No Female Reproductive History Menstrual Age of Menarche: 12 Review of Systems Const All systems reviewed & are unremarkable except as noted in HPI and below Physical Exam Vital Signs: Last Vital Signs Pulse 69 05/21/24 09:19 BP 133/71 05/21/24 09:19 Pulse Ox 100 05/21/24 09:19 Oxygen Delivery Method Room Air 05/21/24 09:19 BMI result Body Mass Index 28.8 General: awake, alert, oriented. Answers questions appropriately. Fully engaged in examination. Skin: warm, dry, intact HEENT: Normocephalic. Hearing intact. Cardiac: External chest normal in appearance. Respiratory: No cough, audible wheezing or stridor. Abdomen: without gross distension. MS: No obvious swelling or deformities. CS: Decreased range of motion. TTP over right upper trapezius. Neurological: Oriented to person, place, time and situation. Thought process intact. No gait abnormalities appreciated. Psychiatric: Appropriate mood and affect. Good judgment and insight. Results Reviewed Results Reviewed: 05/09/24 XR/XR cervical spine w flex/ext FINDINGS: The tip of the odontoid is obscured on the open-mouth view. There is mild reversal of the usual cervical lordosis. There is no fracture. Prevertebral soft tissues are within normal limits. The height of the vertebral bodies is well-maintained. There is mild disc space narrowing with anterior marginal osteophyte formation at C5-C6, similar to the prior study. The neural foramina are widely patent. There is slight anterolisthesis of C3 with respect to C4 and C4 respect to C5 which is unchanged on flexion and reduces on extension. IMPRESSION: 1. Mild degenerative disc disease at C5-C6. 2. Mild anterolisthesis of C3 with respect to C4 and C4 respect to C5, as discussed above. Assessment & Plan Assessment & Plan (1) Cervicalgia: Code(s): M54.2 - Cervicalgia Category: Medical (2) Neuropathy: Comment: BLE Code(s): G62.9 - Polyneuropathy, unspecified Category: Medical Plan Caitlyn presented back to the office today for follow-up, review of recent x- rays Cervical Spine x-rays reviewed, results as per above Continue with plan for physical therapy Discontinue methocarbamol. New prescription for tizanidine 2 mg p.o. 3 times daily as needed. Patient advised on cautions for use. All questions and concerns were answered, patient agrees with the plan. Follow- up after PT, sooner if needed Medications: New tizanidine Discontinue use methocarbamol. Do not take with other muscle relaxants. No driving or alcohol use while taking this medication. 2 mg PO TID PRN 90 tabs 0RF muscle spasticity Discontinued methocarbamol No driving while taking this medication. Do no take with alcohol or other FINISH FILER Depressants Discontinued Reason: Doctor's Order 500 mg PO BID PRN 60 tabs 0RF muscle spasm Coding Level of Care Code Est Pt Level 3 (00287) Complex EM visit Add On G2211 Diagnoses Cervicalgia M54.2 Neuropathy G62.9
== END 2024-05-21 09:39 | disposition home or self-care (01) ==
PROVIDERS: PCP Internal Medicine; Visit Provider Registered Nurse Emergency
DX: M54.2 Cervicalgia (principal); G62.9 Polyneuropathy, unspecified
CPT/HCPCS: 99213

== ENCOUNTER → 2024-05-21 09:12 | Outpatient (BNVA) | payer OTHER, SELFPAY | PROVIDERS: PCP Internal Medicine; Visit Provider Registered Nurse Emergency ==

== ENCOUNTER 2024-05-30 13:49 | Outpatient (REF) | payer OTHER, SELFPAY ==
--- NOTE | 2024-05-30 13:53 | EMG_ITS ---
Chief complaint: Sudden onset anterior hip/groin pain radiating down to medial thighs, described as electrical current, with numbness on toes. History of back pain. Reason for referral: Evaluate for radiculopathy versus neuropathy Referred by: Carissa Skinner NP Procedure done: Bilateral lower extremity NCS/EMG Precautions and/or limitations: None The limb temperature was monitored continuously and remained between 32-36 degrees C during the performance of the NCS. Nerve Conduction Studies Anti Sensory Summary Table ?Stim Site NR Onset (ms) Norm Onset (ms) Peak (ms) Norm Peak (ms) O-P Amp (?V) Norm O-P Amp Site1 Site2 Delta-0 (ms) Dist (cm) Filemon (m/s) Norm Filemon (m/s) Left Sural Anti Sensory (Lat Mall) Calf ? 2.8 3.4 <4.0 6.6 >5.0 Calf Lat Mall 2.8 14.0 50 Right Sural Anti Sensory (Lat Mall) Calf ? 3.0 3.9 <4.0 11.0 >5.0 Calf Lat Mall 3.0 14.0 47 Motor Summary Table ?Stim Site NR Onset (ms) Norm Onset (ms) O-P Amp (mV) Norm O-P Amp iAmp (mV) Amp (1st) (%) Site1 Site2 Delta-0 (ms) Dist (cm) Filemon (m/s) Norm Filemon (m/s) Right Peroneal Motor (Ext Dig Brev) Ankle ? 4.0 <4.0 6.8 >2.5 8.2 100.0 Ankle Ext Dig Brev 4.0 0.0 B Fib ? 10.3 5.1 6.3 75.0 B Fib Ankle 6.3 31.5 50 >40 Poplt ? 10.8 6.5 7.7 95.6 Poplt B Fib 0.5 5.0 100 >40 Left Tibial Motor (Abd Tiwari Brev) Ankle ? 3.8 <5 16.2 >2.5 22.4 100.0 Ankle Abd Tiwari Brev 3.8 0.0 Knee ? 12.0 7.9 11.7 48.8 Knee Ankle 8.2 37.0 45 >40 Right Tibial Motor (Abd Tiwari Brev) Ankle ? 3.4 <5 18.3 >2.5 25.4 100.0 Ankle Abd Tiwari Brev 3.4 0.0 Knee ? 11.4 10.8 15.2 59.0 Knee Ankle 8.0 40.0 50 >40 EMG ?Side Muscle Nerve Root Ins Act Fibs Psw Amp Dur Poly Recrt Int Pat Comment Right Add Murphy Obturator, Sciat L2-4 Nml Nml Nml Nml Nml 0 Nml Complete Right AbdHallucis MedPlantar S1-2 Nml Nml Nml Nml Nml 0 Nml Complete Right AntTibialis Dp Br Peron L4-5 Nml Nml Nml Nml Nml 0 Nml Complete Right PostTibialis Tibial L5, S1 Nml Nml Nml Nml Nml 0 Nml Complete Right MedGastroc Tibial S1-2 Nml Nml Nml Nml Nml 0 Nml Complete Right VastusMed Femoral L2-4 Nml Nml Nml Nml Nml 0 Nml Complete Left AbdHallucis MedPlantar S1-2 Nml Nml Nml Nml Nml 0 Nml Complete Left AntTibialis Dp Br Peron L4-5 Nml Nml Nml Nml Nml 0 Nml Complete Left PostTibialis Tibial L5, S1 Nml Nml Nml Nml Nml 0 Nml Complete Left MedGastroc Tibial S1-2 Nml Nml Nml Nml Nml 0 Nml Complete Left VastusMed Femoral L2-4 Nml Nml Nml Nml Nml 0 Nml Complete Paraspinal EMG ?Side Muscle Nerve Root Ins Act Fibs Psw Comment Right Lumbar Upper Rami Nml Nml Nml Right Lumbar Mid Rami Nml Nml Nml Right Lumbar Lower Rami Nml Nml Nml Left Lumbar Upper Rami Nml Nml Nml Left Lumbar Mid Rami Nml Nml Nml Left Lumbar Lower Rami Nml Nml Nml FINDINGS: All motor and sensory nerves tested showed normal latencies, amplitudes and conduction velocities. Concentric needle EMG was performed in selected muscles of the bilateral lower extremity and lumbar paraspinals. Study did not reveal signs of electric abnormalities as shown in the table above. IMPRESSION: 1. This is a normal study. 2. There is no electrodiagnostic evidence for peroneal neuropathy, tibial neuropathy, lumbosacral plexopathy, lumbar radiculopathy, or peripheral neuropathy. Thank you for your kind referral. Dawn Chiu MD, CHARY Board Certified, [place] Board of Physical Medicine and Rehabilitation (ABPMR) Board Certified, [place] Board of Electrodiagnostic Medicine (ABEM) CODIN [id number] x 2 MTDD
== END 2024-05-30 13:50 | disposition home or self-care (01) ==
LOC: HO.NEURO 13:49
PROVIDERS: PCP Internal Medicine; Visit Provider Registered Nurse Emergency
DX: G62.9 Polyneuropathy, unspecified (principal); R20.0 Anesthesia of skin
CPT/HCPCS: 95886; 95909

== ENCOUNTER → 2024-05-30 13:53 | Outpatient (BNV) | payer OTHER, SELFPAY | PROVIDERS: PCP Internal Medicine; Visit Provider Physical Medicine & Rehabilitation | DX: M25.551 Pain in right hip (principal); M25.552 Pain in left hip | CPT/HCPCS: 95886; 95909 ==

== ENCOUNTER 2024-06-11 12:28 | Outpatient (AMB) | payer OTHER, SELFPAY ==
[2024-06-11 12:38] VITALS: BP 118/68; PULSE 69; O2SAT 99; BMI 28.9
--- NOTE | 2024-06-11 12:38 | MHC.OFFVIS ---
Vital Signs 06/11/24 12:38 Height 5 ft 4 in Weight 168 lb 3.403 oz BMI 28.9 BP 118/68 Blood Pressure Location Lt brachial Position Sitting Pulse 69 Pulse Source Pulse Oximeter Pulse Oximetry (%) 99 Oxygen Delivery Method Room Air Intake Visit Reasons: BL Leg Pain/CM Intake Note: Patient is here for issues with bilateral pain in legs for about 1.5 years, went to vein specialist, and went to ED, all kinds of tests which showed no answers for her, she had a nerve conduction test, they suggested she see a web programmer. She feels her legs are felt like they are being squeezed, and the skin is being stretched. Patient went to pain management, also. Allergies morphine [MORPHINE] Allergy (Intermediate, Verified 06/11/24 12:45) RASH, Hives sertraline Adverse Reaction (Unknown, Verified 06/11/24 12:45) Ulcerative Colitis flared seasonal Allergy (Mild, Uncoded 06/11/24 12:45) Sneezing HPI Comments Details: Patient is a 53-year-old female with ulcerative colitis not currently on treatment who presents for evaluation of bilateral lower extremity pains. Patient states that for the past year she has been having worsening lower extremity pains described as pains going down her legs involving the posterior knee and the heel. She denies dactylitis, prolonged morning stiffness, scleritis/uveitis, inflammatory type back pain. With respect to her ulcerative colitis patient states that she has been inactive for the past 2 years and has not been on treatment. Family history significant for rheumatoid arthritis and lupus in her sister. [facility] Medical History (Updated 05/14/24 @ 04:42 by Sunday Gordon MD) Left ovarian cyst Uterine leiomyoma Insomnia Overweight (BMI 25.0-29.9) Fatigue History of uterine fibroid Ulcerative colitis Surgical History Hx of colonoscopy (~11/14/19) History of surgical procedure History of tooth extraction History of cervical polypectomy Family History Daughter Breast cancer, Onset Age: 31 Maternal Grandmother Cancer Mother Varicose veins of both lower extremities with pain Social History Housing: Apartment Alcohol intake: current Alcohol intake frequency: holidays/special occasions only Alcohol type: wine Patient Tobacco Use Status: Never used Tobacco e-Cigarette/Vaping Use: Never Used Second Hand Smoke Exposure: No Special kali accommodation details: Judaism Current occupational status: employed Gender identity: Female Cognitive needs: No Hearing needs: No Vision needs: No Female Reproductive History Menstrual Age of Menarche: 12 Review of Systems Const Details: Review of Systems Constitutional: Denies fever, chills, weight loss ENT: Denies vision changes, eye pain or eye redness, dental caries, dry mouth GI: Denies nausea, vomiting, diarrhea, abdominal pain, change in BM Pulm: Denies SOB, VALENTIN, hemoptysis, wheezing Cards: Denies chest pain, palpitations Skin: Denies Raynaud's, rash, nail changes, photosensitivity, BIOFUELS PRODUCT MANAGER: Denies headaches, weakness, paresthesias, recurrent falls MSK: as per HPI All other systems reviewed and are unremarkable except noted above Physical Exam Vital Signs: Last Vital Signs Pulse 69 06/11/24 12:38 BP 118/68 06/11/24 12:38 Pulse Ox 99 06/11/24 12:38 Oxygen Delivery Method Room Air 06/11/24 12:38 BMI result Body Mass Index 28.9 Physical Examination Patient well appearing and in no apparent painful distress Able to rise from chair without support. ?Gait normal. Constitutional Mucous membranes pink and moist patient alert and cooperative HEENT Conjunctiva and sclera clear. ?Pupils equal round and reactive to light. ?No lymphadenopathy. ?Normal dentition. Respiratory System Normal respiratory effort and able to speak in complete sentences. ?Clear to auscultation bilaterally. ?No crackles, rales, rhonchi, wheezes heard. Cardiac System Regular rate and rhythm. ?S1 and S2 heard no murmurs. ?Radial pulses intact bilaterally MSK No deformity, swelling, abnormalities noted to bilateral hands. ?No evidence of synovitis. ?Able to move all joints with full range of motion, without limitation. Hands:.??Normal pain-free range of motion without tenderness, swelling, increased warmth or erythema. Able to make a full fist and has a good regulatory consultant strength. Wrists: Normal pain-free range of motion without tenderness, swelling, increased warmth or erythema. Elbows: Full range of motion without pain. No tenderness, weakness, swelling, increased warmth or erythema. No tenderness upon palpation of epicondyles. No evidence of enthesitis here. Shoulders: Full range of motion without pain. No tenderness, weakness, swelling, increased warmth or erythema. Hips: Full range of motion without pain. Hip bursa:.??No tenderness. Knees:.???Normal pain-free range of motion without tenderness, swelling, increased warmth or erythema.?No effusion or crepitations. No tenderness upon palpation of the lateral knees. No evidence of enthesitis here Ankles:.??Normal pain-free range of motion without tenderness, swelling, increased warmth or erythema. No tenderness upon palpation of the Achilles tendon RF is insertion in the heel. No evidence of enthesitis here Feet:.??Normal pain-free range of motion without tenderness, swelling, increased warmth or erythema. Tender points:??No tenderness to digital palpation at the occiput, trapezius, second rib, lateral epicondyle, knees, greater trochanter bilaterally, and left gluteal. Roni's test normal. 10 -> 16cm Results Reviewed Results Reviewed: Laboratory Tests 05/07/24 16:21 WBC 7.6 RBC 4.68 Hgb 12.6 Hct 39.3 Plt Count 398 D ESR 7 Sodium 141 Potassium 4.2 D Chloride 104 Carbon Dioxide 29 BUN 14 Creatinine 1.10 C-Reactive Protein 0.19 25-OH Vitamin D Total 28.0 L XR Foot 05/2024 FINDINGS: The bones and soft tissues are normal. No fracture. Alignment is anatomic. Joint spaces are maintained. EMG 05/2024 IMPRESSION: 1. This is a normal study. 2. There is no electrodiagnostic evidence for peroneal neuropathy, tibial neuropathy, lumbosacral plexopathy, lumbar radiculopathy, or peripheral neuropathy. Assessment & Plan Assessment & Plan (1) Lower extremity pain: Code(s): M79.606 - Pain in leg, unspecified Category: Medical Qualifiers: Laterality: bilateral Qualified Code(s): M79.604 - Pain in right leg; M79.605 - Pain in left leg Plan: #Bilateral lower extremity pain Patient with pain to her bilateral lower extremities. At this time based on history and examination low suspicion for an autoimmune or autoinflammatory related underlying cause. I discussed with the patient that given her history of ulcerative colitis my concern was could she be having enthesitis or inflammatory arthritis that is associated with ulcerative colitis and can be present even if the disease is not active. However on examination she did not have any enthesitis, she did not have any inflammatory arthritis as evidenced by no joint tenderness or swelling or evidence of dactylitis. Her inflammatory markers are also normal on her last check in April. Also thought that this could be related to ankylosing spondylitis which has been seen associated with ulcerative colitis. However her Roni's test was normal. Recommended her to continue gabapentin and conservative management light exercise including aquatherapy. Plan I spent 30 minutes reviewing the record and labs, seeing the patient, discussing the treatment plan and documenting in the medical record Coding Level of Care Code New Pt Level 3 (13510) Diagnoses Pain in both lower extremities M79.604; M79.605 Laterality: bilateral
== END 2024-06-11 13:23 | disposition home or self-care (01) ==
LOC: HO.RHE 12:29
PROVIDERS: PCP Internal Medicine; Visit Provider Student in an Organized Health Care Education/Training Program
DX: M79.604 Pain in right leg (principal); M79.605 Pain in left leg
CPT/HCPCS: 99203

== ENCOUNTER → 2024-06-11 12:28 | Outpatient (BNVA) | payer OTHER, SELFPAY | PROVIDERS: PCP Internal Medicine; Visit Provider Student in an Organized Health Care Education/Training Program ==

== ENCOUNTER 2024-06-12 16:08 | Outpatient (REF) | payer OTHER, SELFPAY ==
[2024-06-12 16:19] LABS: MANUAL DIFF FLAG NO
[2024-06-12 16:48] LABS: Basophils Percent Auto 0.6 % (0-2); Eosinophils Absolute Auto 0.1 X10*3/uL (0.0-0.4); Eosinophils Percent Auto 1.9 % (0-4); Hematocrit 38.1 % (37.0-47.0); Hemoglobin 12.3 g/dl (12.0-16.0); Imm Gran Abs Auto 0.01 X10*3/uL (0.00-0.03); Imm Gran Pct Auto 0.2 % (0.0-0.4); Lymphocytes Absolute Auto 1.8 X10*3/uL (1.2-4.9); Lymphocytes Percent Auto 27.8 % (20-40); Mean Corpuscular HGB Conc 32.3 g/dl (31.0-35.0); Mean Corpuscular Hemoglobin 27.1 pg (27.0-33.0); Mean Corpuscular Volume 83.9 fL (80.0-98.0); Mean Platelet Volume 9.9 fL (9.4-12.3); Monocytes Absolute Auto 0.6 X10*3/uL (0.1-1.2); Neutrophils Absolute Auto 3.9 x10*3/uL (2.0-8.3); Neutrophils Percent Auto 60.5 % (45-73); Platelet Count 319 X10*3/uL (160-400); Red Blood Count 4.54 X10*6/uL (4.20-5.50); Red Cell Distribution Width 13.2 % (11.0-16.0); White Blood Count 6.4 X10*3/uL (4.8-10.8)
== END 2024-06-12 16:09 | disposition home or self-care (01) ==
LOC: HO.LAB 16:08
PROVIDERS: PCP Internal Medicine; Visit Provider Obstetrics & Gynecology
DX: D25.9 Leiomyoma of uterus, unspecified (principal)
CPT/HCPCS: 36415; 85025

== ENCOUNTER 2024-10-30 09:24 | Outpatient (AMB) | payer OTHER, SELFPAY ==
--- NOTE | 2024-10-30 09:28 | MHC.OFFVIS ---
Vital Signs 10/30/24 09:31 BP 108/70 Intake Visit Reasons: hot flashes Intake Note: Patient c/o hot flashes and nightsweats Commercial Energy Auditor: Commercial Energy Auditor Present Allergies morphine [MORPHINE] Allergy (Intermediate, Verified 10/30/24 09:31) RASH, Hives sertraline Adverse Reaction (Unknown, Verified 10/30/24 09:31) Ulcerative Colitis flared seasonal Allergy (Mild, Uncoded 06/11/24 12:45) Sneezing Is last menstrual period known: Yes HPI Comments Details: Patient is here today with concerns of increasing hot flashes since her surgery 08/01/2024 with a complete hysterectomy, bilateral salpingectomy at [facility]. Reports not found in EMR today. She reports having hot flashes for some time, they ramped up to the point where it is interrupting her sleep. She would prefer to do more natural remedies is not interested in hormone replacement therapy due to the risks. Currently takes Melatonin to help her sleep but still wakes with hot flashes. [facility] Medical History (Updated 10/30/24 @ 10:17 by Tammy Berry CNM) Left ovarian cyst Uterine leiomyoma Insomnia Overweight (BMI 25.0-29.9) Fatigue Ulcerative colitis Surgical History (Updated 10/30/24 @ 10:51 by MORRIS Suarez) H/O: hysterectomy Hx of colonoscopy (~11/14/19) History of surgical procedure History of tooth extraction History of cervical polypectomy Family History Daughter Breast cancer, Onset Age: 31 Maternal Grandmother Cancer Mother Varicose veins of both lower extremities with pain Social History Housing: Apartment Alcohol intake: current Alcohol intake frequency: holidays/special occasions only Alcohol type: wine Patient Tobacco Use Status: Never used Tobacco e-Cigarette/Vaping Use: Never Used Second Hand Smoke Exposure: No Special kali accommodation details: Amish Current occupational status: employed Gender identity: Female Cognitive needs: No Hearing needs: No Vision needs: No Female Reproductive History Menstrual Age of Menarche: 12 Menopause type: surgical Total pregnancies: 1 Full term: 1 Number of Living Children: 1 Date of last pap smear: 12/26/21 (neg pap and hpv) History of abnormal pap smear: Yes (09/24 ascus 09/24 ascus) Date of Mammogram: 02/20/24 (Birad 2) Review of Systems Const All systems reviewed & are unremarkable except as noted in HPI and below Endo Reports no additional complaints Physical Exam Vital Signs: Last Vital Signs BP 108/70 10/30/24 09:31 Const General: cooperative, healthy appearing and no acute distress Psych Appearance: well kempt Attitude: cooperative Thought process: Normal thought process present Assessment & Plan Assessment & Plan (1) Hot flashes: Code(s): R23.2 - Flushing Plan Discussed: Menopausal transitioning, self-help measures, menopause.org handout given, information for sleep deprivation with hot flashes by Ezequiel Grimes MD provided. Encouraged to take vitamin-D. The role of exercise with benefits of sleep. Perimenopause to menopause transitioning, can affect moods, menstrual cycle and other symptoms such as hot flashes. Avoidance of triggers: ?Alcohol and spicy foods. Nonhormonal therapies for hot flashes. Perimenopausal changes. ?Self-help measures include: ?Cooling fabric mattress pad, pillow, wear layered clothing, remote control fan, hydrate well. Literature-Menopause.org handout-website information. [place] Menopausal Society (NAMS)website. ?Literature a various sources and authors. Hot flashes occur up to 80% during menopausal transition. ? Multiple options for treatment would include: ?Gabapentin, HRT, or SSRI's. After review of literature advised to follow up in the office to confirm decision making for treatment, plan of care. The patient expressed understanding and agreement with the plan of care. All of her questions and concerns were addressed to the best of my ability. This note is constructed using voice recognition software. While every effort has been made to ensure accuracy, automotive lot attendant errors may have been included. Coding Level of Care Code Est Pt Level 3 (59130) Diagnoses Hot flashes R23.2
[2024-10-30 09:31] VITALS: BP 108/70
--- OUTSIDE RECORDS SUMMARY | 2024-10-30 10:14 | XMS_ITS ---
Author Organization [facility] Address [address] [place] [id number] Care Team Providers Care Crucible Furnace Tender Name Role Phone Brooke Gordon MDh Primary Care Provider [place] Unavailable [phone] REASON FOR VISIT FYI Encounters Encounter Location Date Provider Diagnosis [facility] [address] [place] [id number] 10/24/2024 Pato Lopez Plan Of Treatment Next Appt Details Provider Name:Pato Lopez , 01/19/2025 11:30:00 AM, [address] [place] [address], [phone], Progress Notes * JOCY SIMENTALDOB: [birth year] (53 yo F)Acc No.[id number]:10/24/2024 Patient:?JOCY SIMENTAL :1970???Age:53 Y???Sex:Female Address:[address] [place] [address] [place] [address] * true * Date:? Generated for Printi ng/Fadinorag/eTransmitting on:?10/30/2024 10:14 AM EDT
--- OUTSIDE RECORDS SUMMARY | 2024-10-30 10:14 | XMS_ITS ---
Author Organization [facility] Address [address] [place] [phone] Care Team Providers Care Director Rehabilitation Program Name Role Phone Sunday Gordon MD Primary Care Provider Pato Young [phone] Allergies Allergen (clinical drug ingredient) Drug/Non Drug Allergy documented on EMR Reaction Allergy Type Onset Date Status morphine Morphine Sulfate Unknown Drug Allergy Active REASON FOR VISIT Patient presents today for ulcerative rectosigmoiditis Social History Alcohol Screen Question Answer Notes Did you [...] Never (0 point) Points 0 Interpretation Negative Section Notes: She does not smoke nor use any significant amounts of alcohol. She is a Oriental orthodox. 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 Her ulcerative colitis remains in clinical remission on no specific treatment at this point. She is not having any active symptoms of colitis and all of her recent laboratories and CT scan Look very reassuring. At this point I recommended that we continue to observe things and hope things remain stable as she does not want to use any chronic maintenance mesalamine. I did recommend a screening colonoscopy for 2024 given her last exam being 2019. Given her history of underlying long-standing inflammatory bowel disease and family history of colon cancer I advised her that I would recommend these be done every 5 years rather than every 10 years. We did review the rationale for this in regard to colorectal cancer prevention and/or early detection. Full consent is obtained from her for this, including risks of bleeding and perforation. The procedure will be done with monitored anesthesia care. Given the hysterectomy planned for July, the colonoscopy will be scheduled for some time well into the spring. In regard to her arthralgias and myalgias I advised her to try to get by with just Extra Stength Tylenol as the NSAIDs can aggravate the underlying inflammatory bowel disease. I did advise her to contact me prior to the colonoscopy if she has any problems or questions I can be of assistance with. Jocy was comfortable with this plan. Thank you again for allowing me to participate in Jocy's care. I shall continue to keep you advised of her progress. 06/19/2024 Family history of colon cancer (ICD-10 - Z80.0) Overall, Jocy appears quite well. Her ulcerative colitis remains in clinical remission on no specific treatment at this point. She is not having any active symptoms of colitis and all of her recent laboratories and CT scan Look very reassuring. At this point I recommended that we continue to observe things and hope things remain stable as she does not want to use any chronic maintenance mesalamine. I did recommend a screening colonoscopy for 2024 given her last exam being 2019. Given her history of underlying long-standing inflammatory bowel disease and family history of colon cancer I advised her that I would recommend these be done every 5 years rather than every 10 years. We did review the rationale for this in regard to colorectal cancer prevention and/or early detection. Full consent is obtained from her for this, including risks of bleeding and perforation. The procedure will be done with monitored anesthesia care. Given the hysterectomy planned for July, the colonoscopy will be scheduled for some time well into the spring. In regard to her arthralgias and myalgias I advised her to try to get by with just Extra Stength Tylenol as the NSAIDs can aggravate the underlying inflammatory bowel disease. I did advise her to contact me prior to the colonoscopy if she has any problems or questions I can be of assistance with. Jocy was comfortable with this plan. Thank you again for allowing me to participate in Joyc's care. I shall continue to keep you advised of her progress. 06/19/2024 Encounter for screening for malignant neoplasm of colon (ICD-10 - Z12.11) Overall, Jocy appears quite well. Her ulcerative colitis remains in clinical remission on no specific treatment at this point. She is not having any active symptoms of colitis and all of her recent laboratories and CT scan Look very reassuring. At this point I recommended that we continue to observe things and hope things remain stable as she does not want to use any chronic maintenance mesalamine. I did recommend a screening colonoscopy for 2024 given her last exam being 2019. Given her history of underlying long-standing inflammatory bowel disease and family history of colon cancer I advised her that I would recommend these be done every 5 years rather than every 10 years. We did review the rationale for this in regard to colorectal cancer prevention and/or early detection. Full consent is obtained from her for this, including risks of bleeding and perforation. The procedure will be done with monitored anesthesia care. Given the hysterectomy planned for July, the colonoscopy will be scheduled for some time well into the spring. In regard to her arthralgias and myalgias I advised her to try to get by with just Extra Stength Tylenol as the NSAIDs can aggravate the underlying inflammatory bowel disease. I did advise her to contact me prior to the colonoscopy if she has any problems or questions I can be of assistance with. Jocy was comfortable with this plan. Thank you again for allowing me to participate in Jocy's care. I shall continue to keep you advised of her progress. Plan Of Treatment Treatment Notes Assessment Notes Ulcerative rectosigmoiditis without complication Use Tylenol as needed for aches and pains Future Test Test Name Order Date COLONOSCOPY 06/19/2024 Next Appt Details Follow Up: prn, Reason: Provider Name:Pato Escobar John , 01/19/2025 11:30:00 AM, [address] [place] [address] , [place], [place], [phone], Progress Notes * JOCY SIMENTALDOB: [birth year] (53 yo F)Acc No.[id number]:06/19/2024 Progress Notes Patient:?JOCY SIMENTAL Provider:?Pato Lopez MD :1970???Age:53 Y???Sex:Female D ate:06/19/2024 Address:[address] [place], [place] [id number] Pcp:Sunday Gordon MD Subjective: * Chief Complaints: * ???Patient presents today fo r ulcerative rectosigmoiditis * HPI: ???incontinence:? I saw Jocy in the office today for followup of her ulcerative colitis, family history of colon cancer, and need for colorectal cancer screening. ?Since I last saw Jocy in September she has been doing well from a GI standpoint. She has remained off of her mesalamine but has not had any active symptoms of colitis. She describes that she is having one or 2 formed bowel movements daily without any significant diarrhea, hematochezia, nor mucus. She enjoys a good appetite and denies any significant heartburn or dysphagia. She denies abdominal pain, jaundice, nor weight loss. She does describe that she has been having some gas and has been trying to avoid lactose which may be helping a little bit. She has also been having some arthralgias and myalgias for which she has seen a band scroll saw operator but is not felt to have any specific rheumatologic or autoimmune disease. She denies any rashes, red or swollen joints, or any eye problems. ?She does describe some issues that she thinks might be related to menopause in relation to hot flashes and her other somatic symptoms. She is scheduled for a hysterectomy in July due to fibroids and bleeding. ?Over the course of this year she had a normal abdominal CT scan. She had a normal normal ultrasound in 2022.She also has had recent laboratories revealing a normal CBC, chemistries, renal function, LFTs, B12 and folate level, and thyroid studies. She had a borderline vitamin D level of 28 and started herself on a multivitamin. * ROS:?General/Constitutional:?Change in appetite?denies.?Chills?denies.?Fatigue?denies.?Ophthalmologic:?Patient denies? Negative..?ENT:?Patient denies?Negative..?Respiratory:?Patient denies?No coughing/hemoptysis..?Cardiovascular:?Patient denies? No chest pain/orthopnea..?Gastrointestinal:?Comments?See HPI for details.?Genitourinary:?Patient denies? No dysuria/hematuria..?Musculoskeletal:?Patient denies?No specific arthralgias/myalgias, but does describe some diffuse body aches and pains intermittently.?Skin:?Patient denies?No rash/pruritus..?Neurologic:?Patient denies? No headaches/seizures..?Psychiatric:?Patient denies?Negative..? * Medical History:? * Surgical History:?Denies Pas t Surgical History * Hospitalization/Major Diagno stic Procedure:?No Hospitalization History. * Family History:?Father: dece ased, diagnosed with HTN (hypertension), Diabetes.?Mother: alive, hx of colon ca / cleared, diagnosed with HTN (hypertension), Colon cancer, Heart disease.? There is no history IBD. mother colon cancer. * Social History:?Tobacco Use:?Tobacco Use/Smoking?Are you a: nonsmoker.?Drugs/Alcohol:?Alcohol Screen?Did you have a drink containing alcohol in the past year??Yes,?How often did you have a drink containing alcohol in the past year??Never (0 point),?How many drinks did you have on a typical day when you were drinking in the past year??1 or 2 drinks (0 point),?How often did you have 6 or more drinks on one occasion in the past year??Never (0 point),?Points?0,?Interpretation?Negative.?Miscellaneous:?Marital status: single. 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 ???She does not smoke nor use any significant amounts of alcohol. She is a Oriental orthodox. * Medications:?None * Allergies:?Morphine Sulfatey es[Allergies Verified] Objective: * Vitals:?Wt: 167 lbs, Ht: 64. 5 in, BMI:28.22 Index, BP: 00/00 mm Hg. * Examination: ???General Examination: ?GENERAL APPEARANCE:?pleasant, well nourished, well developed, in no acute distress--she has developed some Cushingoid facies .?EYES:?sclera non-icteric.?ORAL CAVITY:?mucosa moist.?NECK/THYROID:?no cervical lymphadenopathy, neck supple.?SKIN:?nonjaundiced, no spider angiomata..?HEART:?S1, S2 normal.?LUNGS:?clear to auscultation bilaterally.?ABDOMEN:?normal bowel sounds, no guarding or rigidity, no hepatosplenomegaly, no masses palpable, soft, nontender, nondistended..?EXTREMITIES:?no edema.?NEUROLOGIC:?alert and oriented.? Assessment: * Assessment: 1.?Ulcerative rectosigmoidit is without complication - K51.30 (Primary)?2.?Family history of colon cancer - Z80.0?3.?Encounter for screening for malignant neoplasm of colon - Z12.11? Overall, Jocy appears q uite well. Her ulcerative colitis remains in clinical remission on no specific treatment at this point. She is not having any active symptoms of colitis and all of her recent laboratories and CT scan Look very reassuring. At this point I recommended that we continue to observe things and hope things remain stable as she does not want to use any chronic maintenance mesalamine. I did recommend a screening colonoscopy for 2024 given her last exam being 2019. Given her history of underlying long-standing inflammatory bowel disease and family history of colon cancer I advised her that I would recommend these be done every 5 years rather than every 10 years. We did review the rationale for this in regard to colorectal cancer prevention and/or early detection. Full consent is obtained from her for this, including risks of bleeding and perforation. The procedure will be done with monitored anesthesia care. Given the hysterectomy planned for July, the colonoscopy will be scheduled for some time well into the spring. In regard to her arthralgias and myalgias I advised her to try to get by with just Extra Stength Tylenol as the NSAIDs can aggravate the underlying inflammatory bowel disease. I did advise her to contact me prior to the colonoscopy if she has any problems or questions I can be of assistance with. Jocy was comfortable with this plan. Thank you again for allowing me to participate in Jocy's care. I shall continue to keep you advised of her progress. Plan: * Treatment: Notes: Use Tylenol as needed for aches and pains??2.?Family history of colon cancer?Procedure: COLONOSCOPY (Ordered for 06/19/2024)* with MACsched for 11/21/24 at 8:30 ammiralax 3.?Encounter for screening for malignant neoplasm of colon?Procedure: COLONOSCOPY (Ordered for 06/19/2024)* with MACsched for 11/21/24 at 8:30 ammiralax * Procedure Codes:?3017F COLOR ECTAL CA SCREEN DOC BMW8811I TOBACCO NON-VDTSG8520 BP SCR NOT PRFRM REC REASON NOS * Preventive Medicine:? ??Counseling:?Care goal follow-up plan:?Above Normal BMI Follow-up?Giving encouragement to exercise,?BMI management provided?Yes.? * Follow Up:?prn * * Sign off status: Completed true * Provider:?Pato Lopez MD Date:? 024 Generated for Merlin platt/Aubrey/Deniseitting on:?10/30/2024 10:14 AM EDT History and Physical Notes * HPI (History of Present Illness) Category Sub-Category Detail Notes Category Not es incontinence I saw Jocy in the office today for followup of her ulcerative colitis, family history of colon cancer, and need for colorectal cancer screening. Since I last saw Jocy in September she has been doing well from a GI standpoint. She has remained off of her mesalamine but has not had any active symptoms of colitis. She describes that she is having one or 2 formed bowel movements daily without any significant diarrhea, hematochezia, nor mucus. She enjoys a good appetite and denies any significant heartburn or dysphagia. She denies abdominal pain, jaundice, nor weight loss. She does describe that she has been having some gas and has been trying to avoid lactose which may be helping a little bit. She has also been having some arthralgias and myalgias for which she has seen a band scroll saw operator but is not felt to have any specific rheumatologic or autoimmune disease. She denies any rashes, red or swollen joints, or any eye problems. She does describe some issues that she thinks might be related to menopause in relation to hot flashes and her other somatic symptoms. She is scheduled for a hysterectomy in July due to fibroids and bleeding. Over the course of this year she had a normal abdominal CT scan. She had a normal normal ultrasound in 2022.She also has had recent laboratories revealing a normal CBC, chemistries, renal function, LFTs, B12 and folate level, and thyroid studies. She had a borderline vitamin D level of 28 and started herself on a multivitamin. Examination Category Sub-Category Detail Notes Category Not es General Examination GENERAL APPEARANCE: pleasant , well [...]
--- OUTSIDE RECORDS SUMMARY | 2024-10-30 10:14 | XMS_ITS ---
Author Organization [facility] Address [address] [place] [phone] Care Team Providers Care Rag Production Worker Name Role Phone Brooke Gordon MDh Primary Care Provider [place] [phone] REASON FOR VISIT joint inflammation Encounters Encounter Location Date Provider Diagnosis [facility] [address] [place] [phone] 06/12/2024 Pato Lopez Plan Of Treatment Next Appt Details Provider Name:Pato Lopez , 01/19/2025 11:30:00 AM, [address] [place] [address], [phone], Progress Notes * JOCY SIMENTALDOB: [birth year] (53 yo F)Acc No.[id number]:06/12/2024 Patient:?JOCY SIMENTAL :1970???Age:53 Y???Sex:Female Address:[address] [place] [address] [place] [address] * true * Date:? Generated for Printi ng/Fadinorag/eTransmitting on:?10/30/2024 10:14 AM EDT
--- OUTSIDE RECORDS SUMMARY | 2024-10-30 10:15 | XMS_ITS | Patient Health Record ---
Author Organization [facility] Address [address] [place] [phone] Care Team Providers Care Concrete Buildings Assembler Name Role Phone Sunday Gordon MD Primary Care Provider Pato Young [phone] Allergies Allergen (clinical drug ingredient) Drug/Non Drug Allergy documented on EMR Reaction Allergy Type Onset Date Status morphine Morphine Sulfate Unknown Drug Allergy Active Reason For Referral No Information Immunizations Vaccine Route Administration Date Status Comme nts Influenza Unknown 05/08/2018 Administered Influenza Unknown 08/13/2019 Administered Social History Alcohol Screen Question Answer Notes [...] Notes: She does not smoke nor use a ny significant amounts of alcohol She does not smoke nor use a ny significant amounts of alcohol She does not smoke nor use a ny significant amounts of alcohol She does not smoke nor use a ny significant amounts of alcohol She does not smoke nor use a ny significant amounts of alcohol She does not smoke nor use a ny significant amounts of alcohol She does not smoke nor use any significant amounts of alcohol. She is a Evangelical. She does not smoke nor use any significant amounts of alcohol. She is a Evangelical. She does not smoke nor use any significant amounts of alcohol. She is a Evangelical. She does not smoke nor use any significant amounts of alcohol. She is a Evangelical. She does not smoke nor use any significant amounts of alcohol. She is a Evangelical. 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 without complications (K51.30) Active confirmed Problem 739197819 Family history o f colon cancer (Z80.0) Active confirmed Problem 98907510 Ulcerative rectosigmoiditis without complication (K51.30) Active confirmed Problem 886258177 Abdominal pain, right upper quadrant (R10.11) Active confirmed Problem 21978212 Chronic ulcerati ve rectosigmoiditis without complications (K51.30) Active confirmed Problem 644983342 Left upper quadr ant abdominal pain (R10.12) Active confirmed Vital Signs Blood pressure diastolic 00 mm Hg 06/19/2024 Height 64.5 in 06/19/2024 Blood pressure systolic 00 mm Hg 06/19/2024 Weight 167 lbs 06/19/2024 BMI 28.22 kg/m2 06/19/2024 Encounters Encounter Location Date Provider Diagnosis [facility] [address] [place] [phone] 06/19/2024 Pato Lopez 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 ; Family history of colon cancer Z80.0 and Encounter for screening for malignant neoplasm of colon Z12.11 [facility] [address] [place] [phone] 06/12/2024 Pato Lopez [facility] [address] [place] [phone] 10/24/2024 Pato Lopez Assessments Encounter Date Diagnosis (ICD Code) Assessment Notes Treatment Notes Treatment Clinical Notes Section Notes 06/19/2024 Family history of colon cancer (ICD-10 [...] keep you advised of her progress. 06/19/2024 Ulcerative rectosigmoiditis without complication (ICD-10 - [...] advised of her progress. Plan Of Treatment Pending Test Test Name Order Date CHEM 7 PROFILE 10/17/2016 CHEM 7 PROFILE 12/06/2012 CHEM 7 PROFILE 02/15/2018 CHEM 7 PROFILE 10/25/2021 ELECTROLYTES 06/29/2014 BUN 06/29/2014 CREATININE 06/29/2014 LIVER PROFILE 10/25/2021 LIVER PROFILE 06/29/2014 LIVER PROFILE 03/13/2023 LIVER PROFILE 10/17/2016 LIVER PROFILE 12/06/2012 LIVER PROFILE 02/15/2018 CRP 02/15/2018 CRP 10/25/2021 CRP 06/29/2014 CRP 10/17/2016 CBC w DIFF 12/06/2012 CBC w DIFF 10/17/2016 CBC w DIFF 03/13/2023 CBC w DIFF 10/25/2021 CBC w DIFF 06/29/2014 CBC with MANUAL DIFFERENTIAL 02/15/2018 SED RATE (ESR) 12/06/2012 SED RATE (ESR) 10/17/2016 SED RATE (ESR) 02/15/2018 SED RATE (ESR) 10/25/2021 SED RATE (ESR) 06/29/2014 CLOSTRIDIUM DIFF TOXIN A&B (C DIFF) 09/14 CLOSTRIDIUM DIFF TOXIN A&B (C DIFF) 02/2017 CLOSTRIDIUM DIFF TOXIN A&B (C DIFF) 01/2018 STOOL WBC 10/17/2016 STOOL WBC 02/15/2018 GIARDIA AG, STOOL EIA 10/17/2016 GIARDIA AG, STOOL EIA 02/15/2018 OVA & PARASITES (O&P) 10/17/2016 OVA & PARASITES (O&P) 02/15/2018 CULTURE, STOOL 10/06/2014 CULTURE, STOOL 10/17/2016 CULTURE, STOOL 02/15/2018 Future Test Test Name Order Date COLONOSCOPY 10/30/2014 COLONOSCOPY 11/05/2019 COLONOSCOPY 06/19/2024 Next Appt Details Provider Name:Pato Lopez , 01/19/2025 11:30:00 AM, [address] [place] [address] , [place], [place], [phone], Insurance Providers Payer Name Payer Address Payer Phone Subscriber Number Group Number Insured Name Patient Relationship to Insured Coverage Start Date Coverage End Date [employer] [place] [address] [address] [place] [address] [id number] JOCY SIMENTAL Self - patient is the insured Medical (General) History Medical History History ICD Code Ulcerative colitis diagnosed at age 17- colonoscopy in 06/2009-colitis in proximal rectum and sigmoid-all bx neg for dysplasia. Started Delz[place] in 11/2012. Kidney stones Denies [place],DM,CVA,Lung disease, renal dis ease EGD in 07/2011-HH, [...]
--- OUTSIDE RECORDS SUMMARY | 2024-10-30 10:15 | XMS_ITS | Clinical Summary ---
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/22 Lower abdominal pain 11/22/2018 Family History Medical History Relation Name Comments Heart disease Mother Hypertension Mother Relation Name Status Comments Mother Social History Tobacco Use Types Packs/Day Years Used Date Smoking Tobacco: Never Smokeless Tobacco: Never Alcohol Use Standard Drinks/Week Comments Not Currently 0 (1 standard drink = 0.6 oz pur e alcohol) Sex and Gender Information Value Date Recorded Sex Assigned at Not on file Gender Identity Not on file Sexual Orientation Not on file Last Filed Vital Signs Vital Sign Reading Time Taken Comments Blood Pressure 100/72 11/24/2018 5:00 AM EDT Pulse 64 11/24/2018 5:00 AM EDT Temperature 37.2 ??C (98.9 ??F) 11/24/2018 5:00 AM ED T Respiratory Rate 16 11/24/2018 5:00 AM EDT Oxygen Saturation 95% 11/24/2018 5:00 AM EDT Inhaled Oxygen Concentration - - Weight 81.6 kg (180 lb) 11/22/2018 6:44 PM EDT Height 165.1 cm (5' 5 ) 11/22/2018 7:02 AM EDT Body Mass Index 29.95 11/22/2018 7:02 AM EDT Plan of Treatment Health Maintenance Due Date Last Done Comments Hepatitis C Virus Screening 1970 HIV Screening 11/28/1984 DTaP/Tdap/Td Vaccines (1 - Tdap) 11/28/1990 Hepatitis B Vaccines (1 of 3 - 19+ 3-dose series) 11/28/1990 Pap Smear (Ages 21-65) 11/28/1992 Mammogram 2011 Colonoscopy 11/28/2016 Pneumococcal Vaccines 50+ (1 of 1 - PCV) 11/28/2021 Zoster (Shingles) Vaccine (1 of 2) 11/28/2021 Influenza Vaccine 03/13/2024 COVID-19 Vaccine (1 - 2023-2 5 season) 2024 Pneumococcal Vaccine: Pediat samm (0-5 Years) and At-Risk Patients (6 to 49 Years) Aged Out No longer eligible b ased on patient's age to complete this topic Medical Devices Implanted Type Area Balance Bridge Inspector Device Identifier Shelf Expiration Date Model / Serial / Lot [id number] Particles Embolization 500-700um Rnd 2ml 20ml Sumeet Syringe - [id number] Implanted:Qty: 1 on 11/22/2018 by Karin Mims MD at [facility] [employer] 04/12/2021 [id number] / [id number] / [id number] Advance Directives * Full Code (Latest Code Status on File) Date Activated Date Inactivated Comments 11/22/2018 5:38 PM Care Teams Retail Team Leader Relationship Specialty Start Date End Date Sunday Gordon MD [address] [place] [address] [place] [address] PCP - General Internal Medicine 11/22/18
== END 2024-10-30 10:02 | disposition home or self-care (01) ==
LOC: HO.HWS 09:24
PROVIDERS: PCP Internal Medicine; Visit Provider Advanced Practice Midwife
DX: R23.2 Flushing (principal)
CPT/HCPCS: 99213

== ENCOUNTER → 2024-10-30 09:24 | Outpatient (BNVA) | payer OTHER, SELFPAY | PROVIDERS: PCP Internal Medicine; Visit Provider Advanced Practice Midwife ==

== ENCOUNTER 2024-11-11 09:37 | Outpatient (AMB) | payer OTHER, SELFPAY ==
[2024-11-11 09:39] VITALS: BP 116/66; PULSE 68; O2SAT 98; BMI 30.1
--- NOTE | 2024-11-11 09:39 | A.OFFPC_ITS ---
Vital Signs 11/11/24 09:39 Height 5 ft 4 in Weight 175 lb 4 oz BMI 30.1 BP 116/66 Blood Pressure Location Lt brachial Position Sitting Pulse 68 Pulse Source Pulse Oximeter Pulse Oximetry (%) 98 Oxygen Delivery Method Room Air Intake Visit Reasons: 6mth f/u Presetter Operator Required: No Accompanied by: Self / Same As Patient Allergies morphine [MORPHINE] Allergy (Intermediate, Verified 11/11/24 10:09) RASH, Hives sertraline Adverse Reaction (Unknown, Verified 11/11/24 10:09) Ulcerative Colitis flared seasonal Allergy (Mild, Uncoded 11/11/24 10:09) Sneezing Medication List - Last Reconciled 11/11/24 by Sunday Gordon MD cholecalciferol (vitamin D3) 50 mcg PO DAILY melatonin 10 mg PO BEDTIME PRN Tobacco use date assessed: 11/11/24 Dental Screening Dental Screen Date: 11/11/24 HPI 6mth f/u HPI Details Patient comes in today for her follow up visit States that she has been experiencing increased fatigue and recurrence of what she describes as premenopausal symptoms/hot flashes and night sweats ever since she had an abdominal hysterectomy done in July 2024 States that 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 originally went for a laparoscopic approach but had to convert her surgery eventually to the more traditional abdominal hysterectomy Adds that she has also been experiencing difficulty sleeping at night for the past few weeks States that she has tried going up all the way to 10 mg on her OTC Melatonin recently and even that did not help Relates that she has been feeling very fatigued and exhausted lately due to lack of sleep She denies any headaches or dizziness Denies any chest pains, no SOB No nausea/vomiting, no abdominal pain No change in bowel habits noted She also continues to experience increased pain that she describes as deep and burning pain over an area on her left lower leg anteriorly X-rays done a few months ago were unrevealing She has been seen and evaluated by rheumatology, vascular surgery, neurology and pain management but no one so far has been able to come up with anything to help explain her symptoms PFSH Medical History Left ovarian cyst Uterine leiomyoma Insomnia Overweight (BMI 25.0-29.9) Fatigue Ulcerative colitis Surgical History H/O: hysterectomy Hx of colonoscopy (~11/14/19) History of surgical procedure History of tooth extraction History of cervical polypectomy Family History Daughter Breast cancer, Onset Age: 31 Maternal Grandmother Cancer Mother Varicose veins of both lower extremities with pain Social History Housing: Apartment Alcohol intake: current Alcohol intake frequency: holidays/special occasions only Alcohol type: wine Patient Tobacco Use Status: Never used Tobacco e-Cigarette/Vaping Use: Never Used Second Hand Smoke Exposure: No Special kali accommodation details: Denominational service: No Current occupational status: employed Current occupational exposures/hazards: No Gender identity: Female Cognitive needs: No Hearing needs: No Vision needs: No Female Reproductive History Menstrual Age of Menarche: 12 Questionnaire PHQ-9 Over the last 2 weeks, how often have you been bothered by any of the following problems? 1. Little interest or pleasure in doing things: more than half the days 2. Feeling down, depressed, or hopeless: more than half the days 3. Trouble falling or staying asleep, or sleeping too much: nearly every day 4. Feeling tired or having little energy: more than half the days 5. Poor appetite or overeating: more than half the days 6. Feeling bad about yourself - or that you are a failure or have let yourself or your family down: several days 7. Trouble concentrating on things, such as reading the newspaper or watching television: more than half the days 8. Moving or speaking so slowly that other people could have noticed. Or the opposite - being so fidgety or restless that you have been moving around a lot more than usual: not at all 9. Thoughts that you would be better off or of hurting yourself in some way: not at all Total score: 14 Depression Screening Interpretation: Positive Depression Screening Follow-up: Existing condition and In treatment Depression Screening Done: Yes 70801 - PHQ-9 Billing: Yes Source: Developed by Drs. Pato Garay, Madison Hilario, Ney Shelton and colleagues, with an educational desi from [employer]. Thrive Questionnaire Date Thrive assessed: 11/11/24 I am a: Patient What is your living situation today?: I have a steady place to live Within the past 12 months, did the food you bought not last and you didn't have the money to get more?: Never true Within the past 12 months, did you worry whether your food would run out before you got money to buy more?: Never true Do you have trouble paying for medicines?: No Do you have trouble getting transportation to medical appointments?: No Do you have trouble paying your heating and electricity bill?: No Do you have trouble taking care of your child, family member or friend?: No Do you have trouble with day-to-day activities such as bathing, preparing meals, shopping, managing finances, etc.?: No Are you interested in more education?: No Please select the resources that you would like help with: None Currently or been in a relationship where the following occur: I choose not to answer THRIVE Score: 0 AUDIT C Alcohol Use Questionnaire (AUDIT-C) 1. How often do you have a drink containing alcohol?: Monthly or less 2. How many drinks containing alcohol do you have on a typical day when you are drinking?: 1 or 2 3. How often do you have six or more drinks on one occasion?: Never Total Score: 1 Score Reviewed/Action Taken: Yes PARRISH-7 AMB Questionnaire PARRISH-7 Date PARRISH - 7 assessed: 11/11/24 Feeling nervous, anxious, or on edge: 2 = More than half the days Not being able to stop or control worryin = More than half the days Worrying too much about different things: 2 = More than half the days Trouble relaxin = More than half the days Being so restless that it is hard to sit still: 2 = More than half the days Becoming easily annoyed or irritable: 1 = Several days Feeling afraid as if something awful might happen: 0 = Not at all Total PARRISH-7 score (0-4 normal; 5-9 mild; 10-14 moderate; 15-21 severe): 11 Source: Developed by Drs. Pato Garay, Madison Hilario, Ney Shelton and colleagues, with an educational desi from [employer]. Review of Systems Const Denies chills, Reports difficulty sleeping, Denies fatigue, Denies fever(s), Reports headache(s) (on and off, mostly right-sided - see HPI) and Reports night sweats ENT Denies dysphagia, Denies dizziness, Denies otalgia, Reports headache(s) (on and off, mostly right-sided - see HPI), Reports neck pain (on and off), Denies odynophagia and Denies sore throat Card Denies chest pain, Denies irregular heart rhythm, Denies palpitations and Denies dyspnea Resp Denies chest congestion, Denies cough and Denies dyspnea GI Denies abdominal pain, Denies constipation, Denies dysphagia, Denies heartburn, Denies diarrhea, Denies nausea, Denies odynophagia and Denies vomiting Denies urinary frequency, Reports hot flashes (on and off), Denies dysuria and Denies urinary urgency Musc Details: (+) pain over the anterior aspect of the proximal left lower leg Denies back pain and Reports neck pain (on and off) Skin/Breast Denies rash Neuro Denies dizziness, Reports headache(s) (on and off, mostly right-sided - see HPI) and Denies paresthesias Psych Reports anxiety (increasing) and Denies depression Endo Denies fatigue and Denies palpitations Eder/Lymph Denies easy bruising Physical exam (Primary Care) Vital Signs: Last Vital Signs Pulse 68 11/11/24 09:39 BP 116/66 11/11/24 09:39 Pulse Ox 98 11/11/24 09:39 Oxygen Delivery Method Room Air 11/11/24 09:39 BMI result Body Mass Index 30.1 Tobacco/Smoking Status: Tobacco use Status Tobacco use date assessed 11/11/24 11/11/24 09:41 Patient Tobacco Use Status Never used Tobacco 11/11/24 09:41 e-Cigarette/Vaping Use Never Used 11/11/24 09:41 PHQ-9: PHQ-9 Score PHQ-9: Total score 14 11/11/24 21:12 Depression Screening Interpretation: Positive Depression Screening Follow-up: Existing condition and In treatment Thrive Assessment: Date of Thrive Assessment Date Thrive assessed 11/11/24 11/11/24 09:41 Currently or been in a relationship where the following occur: I choose not to answer Const General: no acute distress and alert HENMT Ears: TM's normal bilaterally and EAC's normal Throat: Yes posterior oropharynx normal and Yes tonsils normal (no TP congestion) Neck Neck: Yes no lymphadenopathy and Yes supple Thyroid: Thyroid normal Resp Auscultation: clear to auscultation bilaterally, no rales and no wheezes Cardio Rate: regular rate Rhythm: regular rhythm Heart sounds: no murmurs GI Palpation (GI): Soft to palpation and nontender Auscultation: normal bowel sounds General: Yes no CVA tenderness Back/Spine/Pelvis Back: no CVA tenderness Thoracic/Lumbar Spine: No lumbar spinal tenderness Skin Rashes: no rashes Extrem General: Yes no clubbing, cyanosis or edema Left lower extremity: lower leg Details: tenderness (over the anterior aspect of the proximal third of the left lower leg); no localized swelling Coding Level of Care Code Est Pt Level 4 (79530) Diagnoses Acute nonintractable headache, unspecified headache type R51.9 Headache chronicity pattern: acute headache Headache type: unspecified Intractability: not intractable Facial paresthesia R20.2 Cervicalgia M54.2 Ulcerative colitis without complications, unspecified location K51.90 Digestive disease complication type: without complication Ulcerative colitis location: unspecified ulcerative colitis location Uterine leiomyoma, unspecified location D25.9 Uterine leiomyoma location: unspecified location Left ovarian cyst N83.202 Primary osteoarthritis, right shoulder M19.011 Varicose veins of bilateral lower extremities with pain I83.813 Pain in left lower leg M79.662 Insomnia, unspecified type G47.00 Insomnia type: unspecified Overweight (BMI 25.0-29.9) E66.3 Additional Codes PHQ-9 - 71582 - PHQ-9 Billing: Yes ([id number]) Assessment & Plan Assessment & Plan (1) Headache: Code(s): R51.9 - Headache, unspecified Category: Medical Qualifiers: Headache chronicity pattern: acute headache Headache type: unspecified Intractability: not intractable Qualified Code(s): R51.9 - Headache, unspecified Plan: Suspect migraine headache or variant Patient takes OTC Ibuprofen PRN with mild and temporary relief of her symptoms a lthough she avoids taking too much of this for fear of aggravating her UC Head CT done back in May 2024 came back normal (2) Facial paresthesia: Code(s): R20.2 - Paresthesia of skin Category: Medical Plan: Work ups done, including Lyme disease titer, were all negative Head CT done in May 2024 also came out negative Have discussed with patient that this is likely multifactorial, including possible association to her headaches, which I suspect may be migraine headaches or some variant, as well as related to her anxiety She was referred to neurology for further evaluation and management - patient recalls being seen by neurology a couple of months ago but we have not received any consultation reports so far States that she stopped taking her Gabapentin 100 mg Q HS a while ago as she did not feel that it was helping (3) Cervicalgia: Code(s): M54.2 - Cervicalgia Category: Medical Plan: Cervical spine x-rays done back on 05/09/2024 revealed (+) mild degenerative disc disease at C5-C6 and mild anterolisthesis of C3 with respect to C4 and C4 with respect to C5 She also stopped taking Methocarbamol 500 mg as she states that her neck pains have been mostly manageable and she finds the muscle relaxant too sedating for her (4) Ulcerative colitis: Code(s): K51.90 - Ulcerative colitis, unspecified, without complications Category: Medical Qualifiers: Digestive disease complication type: without complication Ulcerative colitis location: unspecified ulcerative colitis location Qualified Code(s): K51.90 - Ulcerative colitis, unspecified, without complications Plan: Stable/controlled She was on Apriso 1.5 gm Q AM in the past but she stopped taking this last year and has been trying to eat healthier and is hoping that diet modification would allow her to cut back on her need to take any Rx Follow up with GI as scheduled (5) Uterine leiomyoma: Comment: S/P uterine artery embolization in 2019 Hysterectomy 07/2024. Code(s): D25.9 - Leiomyoma of uterus, unspecified Category: Medical Qualifiers: Uterine leiomyoma location: unspecified location Qualified Code(s): D25.9 - Leiomyoma of uterus, unspecified Plan: S/P Tx with UAE in 2019 Pelvic MRI done last year revealed (+) multiple uterine myomas, several with some small submucosal components distorting the endometrium, decreased in size from prior MR pelvis and the majority demonstrating no discernible enhancement compatible with posttreatment effect She underwent elective hysterectomy back in July 2024 - states that she is currently still recovering from her surgery Follow up with gynecology as scheduled (6) Left ovarian cyst: Code(s): N83.202 - Unspecified ovarian cyst, left side Category: Medical Plan: Her recent pelvic MRI also revealed (+) 5.4 cm left ovarian cyst with a single thin internal septation almost certainly benign, new from 01/11/2024 Recommend annual follow-up pelvic ultrasound Follow up with gynecology as scheduled (7) Primary osteoarthritis, right shoulder: Code(s): M19.011 - Primary osteoarthritis, right shoulder Category: Medical Plan: Follow up with orthpedics as scheduled (8) Varicose veins of bilateral lower extremities with pain: Code(s): I83.813 - Varicose veins of bilateral lower extremities with pain Category: Medical Plan: Follow up with vascular surgery as scheduled (9) Pain in left lower leg: Code(s): M79.662 - Pain in left lower leg Category: Medical Plan: EMG and NCV done on 05/26/2024 came out normal, with NO evidence of neuropathy She used to take Gabapentin but stopped taking this a while back She has been seen and evaluated by rheumatology, vascular surgery, neurology and pain management for her left anterior leg pain but so far, no one has been able to provide her with an explanation for her left leg symptoms and she would like to keep searching for answers for her leg pain Will try sending her for left lower leg CT for further evaluation (10) Insomnia: Code(s): G47.00 - Insomnia, unspecified Category: Medical Qualifiers: Insomnia type: unspecified Qualified Code(s): G47.00 - Insomnia, unspecified Plan: Sleep hygiene reinforced She was prescribed Triazolam 0.25 mg Q HS PRN last year but she never took the Rx as she prefers to avoid any sleep aids and due to concerns about side effects from the Rx that can affect her the following day She now agrees to try Zolpidem 5 mg Q HS PRN - have discussed with patient that Zolpidem has a relatively shorter half-life so it is less likely to affect her the next day (11) Overweight (BMI 25.0-29.9): Code(s): E66.3 - Overweight Category: Medical Plan: Reinforced diet/exercise as tolerated/lose weight - she has gained some weight since her last visit, presumably because she has been less active lately due to her gynecologic surgery a few months ago Plan To return in 6 months for her annual physical examination Orders: Orders CT lower leg LT wo/w IV con 11/11/24 M79.662 - Pain in left lower leg Complete Blood Count Auto Diff 6 Months D64.9 - Anemia, unspecified, Z00.00 - Encounter for general adult medical examination without abnormal findings Lipid Panel 6 Months E78.00 - Pure hypercholesterolemia, unspecified, Z00.00 - Encounter for general adult medical examination without abnormal findings UA CC w/rflx Micro + Cult 6 Months R30.0 - Dysuria, Z00.00 - Encounter for general adult medical examination without abnormal findings Vitamin B12 and Folate 6 Months E53.8 - Deficiency of other specified B group vitamins, Z00.00 - Encounter for general adult medical examination without abnormal findings Vitamin D 25-OH Total 6 Months E55.9 - Vitamin D deficiency, unspecified, Z00.00 - Encounter for general adult medical examination without abnormal findings Comprehensive Newell. Panel Fast 6 Months E78.00 - Pure hypercholesterolemia, unspecified, Z00.00 - Encounter for general adult medical examination without abnormal findings TSH reflex Free T4 6 Months E78.00 - Pure hypercholesterolemia, unspecified, Z00.00 - Encounter for general adult medical examination without abnormal findings Magnesium 6 Months E83.42 - Hypomagnesemia, Z00.00 - Encounter for general adult medical examination without abnormal findings Medications: New zolpidem 5 mg PO BEDTIME PRN 30 tabs 0RF sleep 30 days
--- OUTSIDE RECORDS SUMMARY | 2024-11-11 10:58 | XMS_ITS ---
Author Organization [facility] Address [address] [place] [id number] Care Team Providers Care Manager Rfid Name Role Phone Brooke Gordon MDh Primary Care Provider [place] [phone] REASON FOR VISIT joint inflammation Encounters Encounter Location Date Provider Diagnosis [facility] [address] [place] [phone] 06/12/2024 Pato Lopez Plan Of Treatment Next Appt Details Provider Name:Pato Lopez , 01/19/2025 11:30:00 AM, [address] [place] [address], [phone], Progress Notes * JOCY SIMENTALDOB: [birth year] (53 yo F)Acc No.[id number]:06/12/2024 Patient:?JOCY SIMENTAL :1970???Age:53 Y???Sex:Female Address:[address] [place] [address] [place] [address] * true * Date:? Generated for Awai lc/Aubrey/eTransmitting on:?11/11/2024 10:57 AM EDT
--- OUTSIDE RECORDS SUMMARY | 2024-11-11 10:58 | XMS_ITS ---
Author Organization [facility] Address [address] [place] [phone] Care Team Providers Care Shuttle Bus Driver Name Role Phone Sunday Gordon MD Primary Care Provider Pato Young [phone] Allergies Allergen (clinical drug ingredient) Drug/Non Drug [...] significant amounts of alcohol. She is a Rastafarian. Vital Signs Blood pressure systolic 00 mm Hg 06/19/20 24 Blood pressure diastolic 00 mm Hg 024 Height 64.5 in 06/19/2024 Weight 167 lbs 06/19/2024 BMI 28.22 kg/m2 06/19/2024 Encounters Encounter Location Date Provider Diagnosis [facility] [address] [place] [phone] 06/19/2024 Pato Lopez Ulcerative rectosigmoiditis without complication [...] Name:Pato Escobar John , 01/19/2025 11:30:00 AM, [address] [place] [address] , [place], [place], [phone], Progress Notes * JOCY SIMENTALDOB: [birth year] (53 yo F)Acc No.[id number]:06/19/2024 Progress Notes Patient:?JOCY SIMENTAL Provider:?Pato Lopez MD :1970???Age:53 Y???Sex:Female D ate:06/19/2024 Address:[address] [place], [place] [id number] Pcp:Sunday Gordon MD Subjective: * Chief Complaints: [...] myalgias for which she has seen a etiquette teacher but is not felt to have any [...] (0 point),?Points?0,?Interpretation?Negative.?Miscellaneous:?Marital status: single. 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 ???She does not smoke nor use any significant amounts of alcohol. She is a Rastafarian. * Medications:?None * Allergies:?Morphine Sulfatey es[Allergies Verified] [...] Procedure Codes:?3017F COLOR ECTAL CA SCREEN DOC [id number] TOBACCO NON-[id number] BP SCR NOT PRFRM REC REASON NOS * Preventive Medicine:? ??Counseling:?Care goal follow-up plan:?Above Normal BMI Follow-up?Giving encouragement to exercise,?BMI management provided?Yes.? * Follow Up:?prn * * Sign off status: Completed true * Provider:?Pato Lopez MD Date:? 024 Generated for Merlin lpatt/Aubrey/Antoniasmitting on:?11/11/2024 10:58 AM EDT History and Physical Notes * [...] myalgias for which she has seen a etiquette teacher but is not felt to have any [...]
--- OUTSIDE RECORDS SUMMARY | 2024-11-11 10:58 | XMS_ITS ---
Author Organization [facility] Address [address] [place] [phone] Care Team Providers Care Pipe Machine Operator Name Role Phone Brooke Gordon MDh Primary Care Provider [place] Unavailable [phone] REASON FOR VISIT FYI Encounters Encounter Location Date Provider Diagnosis [facility] [address] [place] [phone] 10/24/2024 Pato Lopez Plan Of Treatment Next Appt Details Provider Name:Pato Lopez , 01/19/2025 11:30:00 AM, [address] [place] [address], [phone], Progress Notes * JOCY SIMENTALDOB: [birth year] (53 yo F)Acc No.[id number]:10/24/2024 Patient:?JOCY SIMENTAL :1970???Age:53 Y???Sex:Female Address:[address] [place] [address] [place] [address] * true * Date:? Generated for Printi ng/Fadinorag/eTransmitting on:?11/11/2024 10:57 AM EDT
--- OUTSIDE RECORDS SUMMARY | 2024-11-11 10:58 | XMS_ITS | Clinical Summary ---
Author Organization [facility] Address [address] [place] [address] Care Team Providers Care Restaurant District Manager Name Role Phone Sunday Gordon MD Primary Care Provider +1- [phone] Allergies Active Allergy Reactions Criticality Noted Date [...] this topic Medical Devices Implanted Type Area Box Maker Wood Device Identifier Shelf Expiration Date Model / Serial / Lot [id number] Particles Embolization 500-700um Rnd 2ml 20ml Sumeet Syringe - [id number] Implanted:Qty: 1 on 11/22/2018 by Karin Mims MD at [facility] Cardiac [employer] 04/12/2021 S620GH / [id number] / [id number] Advance Directives * Full Code (Latest Code Status on File) Date Activated Date Inactivated Comments 11/22/2018 5:38 PM Care Teams Restaurant District Manager Relationship Specialty Start Date End Date Sunday Gordon MD [address] [place] [address] [place] [address] PCP - General Internal Medicine 11/22/18
== END 2024-11-11 10:26 | disposition home or self-care (01) ==
LOC: HO.HMCH 09:38
PROVIDERS: PCP Internal Medicine; Visit Provider Internal Medicine
DX: R51.9 Headache, unspecified (principal); R20.2 Paresthesia of skin; M54.2 Cervicalgia; K51.90 Ulcerative colitis, unspecified, without complications; D25.9 Leiomyoma of uterus, unspecified; N83.202 Unspecified ovarian cyst, left side; M19.011 Primary osteoarthritis, right shoulder; I83.813 Varicose veins of bilateral lower extremities with pain; M79.662 Pain in left lower leg; G47.00 Insomnia, unspecified; E66.3 Overweight

== ENCOUNTER → 2024-11-11 09:37 | Outpatient (BNVA) | payer OTHER, SELFPAY | PROVIDERS: PCP Internal Medicine; Visit Provider Internal Medicine | DX: R51.9 Headache, unspecified (principal); R20.2 Paresthesia of skin; M54.2 Cervicalgia; K51.90 Ulcerative colitis, unspecified, without complications; D25.9 Leiomyoma of uterus, unspecified; N83.202 Unspecified ovarian cyst, left side; M19.011 Primary osteoarthritis, right shoulder; I83.813 Varicose veins of bilateral lower extremities with pain; M79.662 Pain in left lower leg; G47.00 Insomnia, unspecified; E66.3 Overweight; Z68.30 Body mass index [BMI] 30.0-30.9, adult | CPT/HCPCS: 96127 ==

== ENCOUNTER 2024-11-25 15:36 | Outpatient (REF) | payer OTHER, SELFPAY ==
[2024-11-26 10:06] LABS: Bacterial Vaginosis PCR NEGATIVE (Negative); Candida Group PCR NOT DETECTED (Not Detect); Candida glab krusei PCR NOT DETECTED (Not Detect); Trichomonas vaginalis PCR NOT DETECTED (Not Detect)
== END 2024-11-25 15:37 | disposition home or self-care (01) ==
LOC: HO.LAB 15:36
PROVIDERS: PCP Internal Medicine; Visit Provider Advanced Practice Midwife
DX: N89.8 Other specified noninflammatory disorders of vagina (principal)
CPT/HCPCS: 81003; 81515

== ENCOUNTER 2024-11-25 15:36 | Outpatient (AMB) | payer OTHER, SELFPAY ==
--- NOTE | 2024-11-25 15:39 | MHC.OFFVIS ---
Vital Signs 11/25/24 15:40 Height 5 ft 4 in Weight 175 lb BMI 30.0 BP 90/64 Intake Visit Reasons: ? prolapse Art Class Model: Art Class Model Present (Kimmie) Allergies morphine [MORPHINE] Allergy (Intermediate, Verified 11/25/24 15:39) RASH, Hives zolpidem Adverse Reaction (Intermediate, Verified 11/25/24 15:39) muscle twitching sertraline Adverse Reaction (Unknown, Verified 11/25/24 15:39) Ulcerative Colitis flared seasonal Allergy (Mild, Uncoded 11/11/24 10:09) Sneezing HPI Comments Details: Patient is here today with feeling of vaginal fullness for the last two weeks. She reports a slight mucus discharge. No leakage of urine or dysuria. History of a total hysterectomy July 2024 for fibroids. [facility] Medical History Left ovarian cyst Uterine leiomyoma Insomnia Overweight (BMI 25.0-29.9) Fatigue Ulcerative colitis Surgical History H/O: hysterectomy Hx of colonoscopy (~11/14/19) History of surgical procedure History of tooth extraction History of cervical polypectomy Family History Daughter Breast cancer, Onset Age: 31 Maternal Grandmother Cancer Mother Varicose veins of both lower extremities with pain Social History Housing: Apartment Alcohol intake: current Alcohol intake frequency: holidays/special occasions only Alcohol type: wine Patient Tobacco Use Status: Never used Tobacco e-Cigarette/Vaping Use: Never Used Second Hand Smoke Exposure: No Special kali accommodation details: Gnosticist service: No Current occupational status: employed Current occupational exposures/hazards: No Gender identity: Female Cognitive needs: No Hearing needs: No Vision needs: No Female Reproductive History Menstrual Age of Menarche: 12 Review of Systems Const All systems reviewed & are unremarkable except as noted in HPI and below Physical Exam Vital Signs: Last Vital Signs BP 90/64 11/25/24 15:40 BMI result Body Mass Index 30.0 Const General: cooperative, healthy appearing and no acute distress Orientation/consciousness: patient oriented x3 GI Inspection: Yes normal to inspection Palpation (GI): Soft to palpation and Other GI palpation findings present (Nontender) Rectal Exam - Female: visual inspection normal General: Yes bladder normal to palpation External Female Exam: normal appearance of the urethra Speculum Exam - Vagina: normal appearance of the vagina, normal palpation and normal vaginal discharge Speculum Exam - Cervix: Cervix absent (Vaginal cuff no lesions or nodules) Bimanual exam- vagina & uterus: normal bimanual exam, normal palpation, bladder normal to palpation, uterus absent and other (No prolapse noted with Valsalva maneuver) Bimanual Exam- Adnexa, other: normal adnexae Neuro General: patient oriented x3 Results AMB Urinalysis, Automated UA Leukoctes 0 Keesha/uL Last Edit by Ainsley Guzman [facility] on 11/25/24 16:05 UA Nitrite Negative Last Edit by Ainsley Guzman [facility] on 11/25/24 16:05 UA Urobilinogen 0 mg/dL Last Edit by Ainsley Guzman [facility] on 11/25/24 16:05 UA Protein 0 mg/dL Last Edit by Ainsley Guzman [facility] on 11/25/24 16:05 UA pH 5.5 Last Edit by Ainsley Guzman [facility] on 11/25/24 16:05 UA Blood 0 Daniel/uL Last Edit by Ainsley Guzman [facility] on 11/25/24 16:05 UA Specific [place] 1.030 Last Edit by Ainsley Guzman [facility] on 11/25/24 16:05 UA Ketone Negative Last Edit by Ainsley Guzman [facility] on 11/25/24 16:05 UA Bilirubin 0 mg/dL Last Edit by Ainsley Guzman [facility] on 11/25/24 16:05 UA Glucose 0 mg/dL Last Edit by Ainsley Guzman [facility] on 11/25/24 16:05 Assessment & Plan Assessment & Plan (1) Vaginal discomfort: Code(s): N94.9 - Unspecified condition associated with female genital organs and menstrual cycle Plan: Monitor symptoms, Report any changes. (2) Vaginal discharge: Code(s): N89.8 - Other specified noninflammatory disorders of vagina Plan BV panel obtained, urine dip- negative. Observe for symptoms if symptoms are worsening, or urinary symptoms such as leakage, incontinence to return to the office or to [facility] where her surgery was performed. The patient expressed understanding and agreement with the plan of care. All of her questions and concerns were addressed to the best of my ability. This note is constructed using voice recognition software. While every effort has been made to ensure accuracy, wood milling machine operator errors may have been included. Orders: Orders Bacterial Vaginosis Panel Today N89.8 - Other specified noninflammatory disorders of vagina AMB Urinalysis Automated Today N94.9 - Unspecified condition associated with female genital organs and menstrual cycle Coding Level of Care Code Est Pt Level 3 (08264) Diagnoses Vaginal discomfort N94.9 Vaginal discharge N89.8
[2024-11-25 15:40] VITALS: BP 90/64
--- OUTSIDE RECORDS SUMMARY | 2024-11-25 18:41 | XMS_ITS ---
Author Organization [facility] Address [address] [place] [address] Care Team Providers Care Presales Engineer Name Role Phone Sunday Gordon MD Primary Care Provider Pato Young [phone] REASON FOR VISIT screening,fam hx colon ca, ulcerative rectosigmoiditis Encounters Encounter Location Date Provider Diagnosis [facility] [address] [place] [phone] 11/21/2024 Pato Lopez Plan Of Treatment Next Appt Details Provider Name:Pato Lopez , 01/19/2025 11:30:00 AM, [address] [place] [address], [phone], Progress Notes * JOCY SIMENTALDOB: [birth year] (53 yo F)Acc No.[id number]:11/21/2024 COLON WITH MAC Patient:?JOCY SIMENTAL Provider:?Pato Lopez MD :1970???Age:53 Y???Sex:Female D ate:11/21/2024 Address:[address] [place], [place] [id number] Pcp:Sunday Gordon MD Subjective: * Chief Complaints: * ???1. Screening,fam hx colon ca, ulcerative rectosigmoiditis. * Medical History:? Objective: * Vitals:? Assessment: Plan: * Treatment: * * The named appointment provid er may or may not be the originator of this progress note, and it is not deemed complete until electronically signed by the appointment provider. Sign off status: Pending * Provider:?Pato Lopez MD Date:?04/11/2 025 Generated for Merlin platt/Aubrey/Barbara on:?11/25/2024 06:40 PM EDT
--- OUTSIDE RECORDS SUMMARY | 2024-11-25 18:41 | XMS_ITS ---
Author Organization [facility] Address [address] [place] [address] Care Team Providers Care Geographic Information Scientist Name Role Phone Brooke Gordon MDh Primary Care Provider [place] Unavailable [phone] REASON FOR VISIT FYI Encounters Encounter Location Date Provider Diagnosis [facility] [address] [place] [address] 10/24/2024 Pato Lopez Plan Of Treatment Next Appt Details Provider Name:Pato Lopez , 01/19/2025 11:30:00 AM, [address] [place] [address] , [place], [place], [phone], Progress Notes * JOCY SIMENTALDOB: [birth year] (53 yo F)Acc No.[id number]:10/24/2024 Patient:?JOCY SIMENTAL :1970???Age:53 Y???Sex:Female Address:[address] [place] [address] [place] [address] * true * Date:? Generated for Printi ng/Fadinorag/eTransmitting on:?11/25/2024 06:40 PM EDT
--- OUTSIDE RECORDS SUMMARY | 2024-11-25 18:41 | XMS_ITS | Patient Health Record ---
Author Organization [facility] Address [address] [place] [address] Care Team Providers Care Documentation Specialist Name Role Phone Sunday Gordon MD Primary Care Provider Pato Young [phone] Allergies Allergen (clinical drug ingredient) Drug/Non Drug [...] significant amounts of alcohol. She is a Presybeterian. She does not smoke nor use any significant amounts of alcohol. She is a Presybeterian. She does not smoke nor use any significant amounts of alcohol. She is a [place]ybeterian. She does not smoke nor use any significant amounts of alcohol. She is a Presybeterian. She does not smoke nor use any significant amounts of alcohol. She is a Presybeterian. 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) Active confirmed Problem 149729881 Left upper quadr ant abdominal pain (R10.12) Active confirmed Vital Signs Blood pressure diastolic 00 mm Hg 06/19/2024 Height 64.5 in 06/19/2024 Blood pressure systolic 00 mm Hg 06/19/2024 Weight 167 lbs 06/19/2024 BMI 28.22 kg/m2 06/19/2024 Encounters Encounter Location Date Provider Diagnosis [facility] [address] [place] [address] 06/19/2024 Pato Lopez 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 ; Family history of colon cancer Z80.0 and Encounter for screening for malignant neoplasm of colon Z12.11 [facility] [address] [place] [address] 06/12/2024 Pato Lopez [facility] [address] [place] [address] 10/24/2024 Pato Lopez Assessments Encounter Date Diagnosis [...] 10/17/2016 LIVER PROFILE 12/06/2012 LIVER PROFILE 02/15/2018 LIVER PROFILE 10/25/2021 LIVER PROFILE 06/29/2014 LIVER PROFILE 03/13/2023 CRP 10/17/2016 CRP 02/15/2018 CRP 10/25/2021 CRP 06/29/2014 CBC w DIFF 10/25/2021 CBC w DIFF 06/29/2014 CBC w DIFF 12/06/2012 CBC w DIFF 10/17/2016 CBC w DIFF 03/13/2023 CBC with MANUAL DIFFERENTIAL 02/15/2018 SED RATE (ESR) 02/15/2018 SED RATE (ESR) 10/25/2021 SED RATE (ESR) 06/29/2014 SED RATE (ESR) 12/06/2012 SED RATE (ESR) 10/17/2016 CLOSTRIDIUM DIFF TOXIN A&B (C DIFF) 02/2017 CLOSTRIDIUM DIFF TOXIN A&B (C DIFF) 01/2018 CLOSTRIDIUM DIFF TOXIN A&B (C DIFF) 09/14 STOOL WBC 10/17/2016 STOOL WBC 02/15/2018 GIARDIA AG, STOOL EIA 10/17/2016 GIARDIA AG, STOOL EIA 02/15/2018 OVA & PARASITES (O&P) 10/17/2016 OVA & PARASITES (O&P) 02/15/2018 CULTURE, STOOL 02/15/2018 CULTURE, STOOL 10/06/2014 CULTURE, STOOL 10/17/2016 Future Test Test Name Order Date COLONOSCOPY 10/30/2014 COLONOSCOPY 11/05/2019 COLONOSCOPY 06/19/2024 Next Appt Details Provider Name:Pato Lopez , 01/19/2025 11:30:00 AM, [address] [place] [address] , [place], [place], [phone], Insurance Providers Payer Name Payer Address Payer Phone Subscriber Number Group Number Insured Name Patient Relationship to Insured Coverage Start Date Coverage End Date BLUE [employer]ENEFITS [place] [address] [address] [place] [address] [id number] 3 JOCY SIMENTAL Self - patient is the insured Medical (General) History Medical History History ICD Code Ulcerative colitis diagnosed at age 17- colonoscopy in 06/2009-colitis in proximal rectum and sigmoid-all bx neg for dysplasia. Started Delzicol in 11/2012. Kidney stones Denies [place],DM,CVA,Lung disease, renal dis ease EGD in 07/2011-HH, [...]
--- OUTSIDE RECORDS SUMMARY | 2024-11-25 18:41 | XMS_ITS ---
Author Organization [facility] Address [address] [place] [address] Care Team Providers Care Road Traffic Controller Name Role Phone Sunday Gordon MD Primary Care Provider Pato Young [phone] Allergies Allergen (clinical drug ingredient) Drug/Non Drug [...] significant amounts of alcohol. She is a Religious. Vital Signs Blood pressure systolic 00 mm Hg 06/19/20 24 Blood pressure diastolic 00 mm Hg 024 Height 64.5 in 06/19/2024 Weight 167 lbs 06/19/2024 BMI 28.22 kg/m2 06/19/2024 Encounters Encounter Location Date Provider Diagnosis [facility] [address] [place] [phone] 06/19/2024 Pato Lopez Ulcerative rectosigmoiditis without complication [...] Name:Pato Escobar John , 01/19/2025 11:30:00 AM, [address] [place] [address] , [place], [place], [phone], Progress Notes * JOCY SIMENTALDOB: [birth year] (53 yo F)Acc No.[id number]:06/19/2024 Progress Notes Patient:?JOCY SIMENTAL Provider:?Pato Lopez MD :1970???Age:53 Y???Sex:Female D ate:06/19/2024 Address:[address] [place], [place] [phone] Pcp:Sunday Gordon MD Subjective: * Chief Complaints: [...] myalgias for which she has seen a tool and die manager but is not felt to have any [...] (0 point),?Points?0,?Interpretation?Negative.?Miscellaneous:?Marital status: single. 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 ???She does not smoke nor use any significant amounts of alcohol. She is a Religious. * Medications:?None * Allergies:?Morphine Sulfatey es[Allergies Verified] [...] Procedure Codes:?3017F COLOR ECTAL CA SCREEN DOC [id number] TOBACCO NON-[id number] BP SCR NOT PRFRM REC REASON NOS * Preventive Medicine:? ??Counseling:?Care goal follow-up plan:?Above Normal BMI Follow-up?Giving encouragement to exercise,?BMI management provided?Yes.? * Follow Up:?prn * * Sign off status: Completed true * Provider:?Pato Lopez MD Date:? 024 Generated for Merlin platt/Aubrey/Deniseitting on:?11/25/2024 06:40 PM EDT History and Physical Notes * HPI [...] myalgias for which she has seen a tool and die manager but is not felt to have any [...]
--- OUTSIDE RECORDS SUMMARY | 2024-11-25 18:41 | XMS_ITS | Clinical Summary ---
Author Organization [facility] Address [address] [place] [address] Care Team Providers Care Fancy Stitcher Name Role Phone Sunday Gordon MD Primary Care Provider +1- [phone] Allergies Active Allergy Reactions Criticality Noted Date [...] this topic Medical Devices Implanted Type Area Radiological Technician Device Identifier Shelf Expiration Date Model / Serial / Lot [id number] Particles Embolization 500-700um Rnd 2ml 20ml Sumeet Syringe - [id number] Implanted:Qty: 1 on 11/22/2018 by Karin Mims MD at [facility] Cardiac [employer] 04/12/2021 S620GH / [id number] / [id number] Advance Directives * Full Code (Latest Code Status on File) Date Activated Date Inactivated Comments 11/22/2018 5:38 PM Care Teams Fancy Stitcher Relationship Specialty Start Date End Date Sunday Gordon MD [address] [place] [address] [place] [address] PCP - General Internal Medicine 11/22/18
== END 2024-11-25 17:48 ==
LOC: HO.HWS 15:36
PROVIDERS: PCP Internal Medicine; Visit Provider Advanced Practice Midwife
DX: N94.9 Unspecified condition associated with female genital organs and menstrual cycle (principal); N89.8 Other specified noninflammatory disorders of vagina
CPT/HCPCS: 99213

== ENCOUNTER 2025-01-08 07:18 | Outpatient (REF) | payer OTHER, SELFPAY ==
--- NOTE | ~2025-01-08 | CT_ITS ---
CLINICAL HISTORY: M79.662 - Pain in left lower leg --- Additional Notes or Special Instructions: has been seen by vascular, rheumatology and neurology as well as pain CT left leg without contrast Comparison: None Findings: No soft tissue masses or focal fluid collections. No knee joint effusion. Small benign bone island within the medial distal femoral metadiaphysis. No fracture or dislocation. Small type 1 accessory navicular. Minimal knee medial and patellofemoral compartment osteoarthritis andmild tibiotalar osteoarthritis. Small plantar calcaneal enthesophyte. Muscles and tendons are grossly intact. Peroneus quartus accessory ankle muscle. IMPRESSION: No acute findings. This document has been electronically signed by: Aravind Askew DO on 01/09/2025 10:08:41
== END 2025-01-08 07:19 | disposition home or self-care (01) ==
LOC: HO.CT 07:18
PROVIDERS: PCP Internal Medicine; Visit Provider Internal Medicine
DX: M79.662 Pain in left lower leg (principal)
CPT/HCPCS: 73700

== ENCOUNTER → 2025-01-08 07:19 | Outpatient (BNV) | payer OTHER, SELFPAY | PROVIDERS: PCP Internal Medicine; Visit Provider Radiology Diagnostic Radiology | DX: M79.662 Pain in left lower leg (principal) | CPT/HCPCS: 73700 ==

== ENCOUNTER 2025-01-15 08:14 | Outpatient (AMB) | payer OTHER, SELFPAY ==
--- OUTSIDE RECORDS SUMMARY | 2025-01-15 08:20 | XMS_ITS ---
Author Organization [facility] Address [address] [place] [address] Care Team Providers Care Window Framer Name Role Phone Brooke Gordon MDh Primary Care Provider [place] Unavailable [phone] REASON FOR VISIT FYI Encounters Encounter Location Date Provider Diagnosis [facility] [address] [place] [phone] 10/24/2024 Pato Lopez Plan Of Treatment Next Appt Details Provider Name:Pato Lopez , 01/19/2025 11:30:00 AM, [address] [place] [address], [phone], Progress Notes * JCOY SIMENTALDOB: [birth year] (53 yo F)Acc No.[id number]:10/24/2024 Patient:JOCY ACEVES :1970???Age:53 Y???Sex:Female Address:[address] [place] [address] [place] [address] * true * Date:? Generated for Printi ng/Fadinorag/eTransmitting on:?01/15/2025 08:20 AM EDT
[2025-01-15 08:24] VITALS: BP 122/74; PULSE 71; TEMP 36.7; O2SAT 99
--- NOTE | 2025-01-15 08:24 | AM.OFFWIN_ITS ---
Intake Vital Signs 01/15/25 08:24 Height 5 ft 4 in Weight 175 lb BMI 30.0 BP 122/74 Blood Pressure Location Lt brachial Position Sitting Pulse 71 Pulse Source Pulse Oximeter Temp 98.0 F Temp Source Oral Pulse Oximetry (%) 99 Oxygen Delivery Method Room Air Intake Visit Reasons: EP blood in urine, back pain Intake Note: Pt presents to the office today for c/o blood in urine, back pain x3 days. Pt states she has a history of kidney stones. Patient Tobacco Use Status: Never used Tobacco Allergies morphine [MORPHINE] Allergy (Intermediate, Verified 01/15/25 08:26) RASH, Hives zolpidem Adverse Reaction (Intermediate, Verified 01/15/25 08:26) muscle twitching sertraline Adverse Reaction (Unknown, Verified 01/15/25 08:) Ulcerative Colitis flared seasonal Allergy (Mild, Uncoded 01/15/25 08:26) Sneezing HPI HPI Comments History of Present Illness Details 54 y/o Female patient who presents to [facility] walk in clinic with c/o Hematuria associated with lower back pain for 3 days. Pt states she has a history of kidney stones. Reports Burning with urination. Denies Vaginal symptoms. Denies fevers or chills. [facility] Medical History (Updated 01/15/25 @ 08:44 by Alicia Vega NP) Dysuria Left ovarian cyst Uterine leiomyoma Insomnia Overweight (BMI 25.0-29.9) Fatigue Ulcerative colitis Surgical History H/O: hysterectomy Hx of colonoscopy (~11/14/19) History of surgical procedure History of tooth extraction History of cervical polypectomy Family History Daughter Breast cancer, Onset Age: 31 Maternal Grandmother Cancer Mother Varicose veins of both lower extremities with pain Social History Housing: Apartment Alcohol intake: current Alcohol intake frequency: holidays/special occasions only Alcohol type: wine Patient Tobacco Use Status: Never used Tobacco e-Cigarette/Vaping Use: Never Used Second Hand Smoke Exposure: No Special kali accommodation details: Adventism service: No Current occupational status: employed Current occupational exposures/hazards: No Gender identity: Female Cognitive needs: No Hearing needs: No Vision needs: No Female Reproductive History Menstrual Age of Menarche: 12 Review of Systems Const All systems reviewed & are unremarkable except as noted in HPI and below Physical Exam Vital Signs: Last Vital Signs Temp 98.0 F 01/15/25 08:24 Pulse 71 01/15/25 08:24 BP 122/74 01/15/25 08:24 Pulse Ox 99 01/15/25 08:24 Oxygen Delivery Method Room Air 01/15/25 08:24 BMI result Body Mass Index 30.0 Const General: no acute distress Nutritional Appearance: overweight Orientation/consciousness: patient oriented x3 General: Yes no CVA tenderness Back/Spine/Pelvis Back: no CVA tenderness and back tenderness Thoracic/Lumbar Spine: lumbar spinal tenderness Neuro General: patient oriented x3 Psych Speech and movement: Normal speech and movement present Results AMB Urinalysis, Automated UA Leukoctes 0 Keesha/uL Last Edit by Eunice Joe CMA on 01/15/25 08:30 UA Nitrite Negative Last Edit by Eunice Joe CMA on 01/15/25 08:30 UA Urobilinogen 0.2 mg/dL Last Edit by Eunice Joe CMA on 01/15/25 08:30 UA Protein 0 mg/dL Last Edit by Eunice Joe CMA on 01/15/25 08:30 UA pH 6.0 Last Edit by Eunice Joe CMA on 01/15/25 08:30 UA Blood 0 Daniel/uL Last Edit by Eunice Joe CMA on 01/15/25 08:30 UA Specific [place] 1.010 Last Edit by Eunice Joe CMA on 01/15/25 08:30 UA Ketone Negative Last Edit by Eunice Joe CMA on 01/15/25 08:30 UA Bilirubin 0 mg/dL Last Edit by Eunice Joe CMA on 01/15/25 08:30 UA Glucose 0 mg/dL Last Edit by Eunice Joe CMA on 01/15/25 08:30 Results Reviewed Results Reviewed: Laboratory Last Values Urine pH (Auto) 6.0 01/15/25 08:29 Specific [place] (Auto) 1.010 01/15/25 08:29 Urine Protein (Auto) 0 mg/dL 01/15/25 08:29 Glucose (UA)(Auto) 0 mg/dL 01/15/25 08:29 Urine Ketones (Auto) Negative 01/15/25 08:29 Urine Blood (Auto) 0 Daniel/uL 01/15/25 08:29 Urine Nitrite (Auto) Negative 01/15/25 08:29 Urine Bilirubin (Auto) 0 mg/dL 01/15/25 08:29 Urine Urobilinogen (Auto) 0.2 mg/dL 01/15/25 08:29 Leukocyte Esterase (Auto) 0 Keesha/uL 01/15/25 08:29 Assessment & Plan Assessment & Plan (1) Dysuria: Code(s): R30.0 - Dysuria Plan: Urinalysis Negative. Advised to f/u Position Classifier - to r/o BV, Fungal etc Advised to f/u with PCP for Urology referral if symptoms continue. Possibly Muscular related - NSAIDs and Acetaminophen for pain relief. Ice/Hot Orders: Orders AMB Urinalysis Automated Today Z13.9 - Encounter for screening, unspecified Coding Level of Care Code Est Pt Level 4 (70842) Diagnoses Dysuria R30.0 Time Spent (min) 20
== END 2025-01-15 08:59 | disposition home or self-care (01) ==
PROVIDERS: PCP Internal Medicine; Visit Provider Nurse Practitioner Family
DX: Z13.9 Encounter for screening, unspecified (principal); R30.0 Dysuria

== ENCOUNTER → 2025-01-15 08:14 | Outpatient (BNVA) | payer OTHER, SELFPAY | PROVIDERS: PCP Internal Medicine | DX: R30.0 Dysuria (principal); R31.9 Hematuria, unspecified; M54.50 Low back pain, unspecified; Z87.442 Personal history of urinary calculi | CPT/HCPCS: 81003 ==

== ENCOUNTER 2025-01-16 09:14 | Emergency (ER) | payer OTHER, SELFPAY ==
[2025-01-16 09:26] VITALS: BP 142/74; PULSE 73; RESP 18; TEMP 36.2; O2SAT 98; BMI 30.2
--- NOTE | 2025-01-16 09:56 | ED.FEMALEGU ---
HPI - Female Genitourinary General Chief complaint: Vaginal Bleeding Stated complaint: Vag Bleed Pain Etc Time Seen by Provider: 01/16/25 09:56 Source: patient Mode of arrival: ambulatory Limitations: no limitations History of Present Illness ED Provider: Amber Ramírez PA-C HPI Narrative: 54-year-old female with medical history of ulcerative colitis s/p hysterectomy [facility] July 2024 presents to the ED today due to 2 days of abdominal bloating and vaginal bleeding. Patient states 2 days ago (01/14) she was in the shower and started experiencing periumbilical pain with abdominal bloating. She states later in the day when she was urinating she noticed bright red blood in the toilet and on the tissue paper. She states she is having some burning pain with urination and dull pain within the vagina. States she is not having increased urinary frequency and feels as if she is able to fully empty her bladder with urination. She reports going to urgent care yesterday due to having concern she had a possible kidney stone because of the pain with urination and abdominal pain. Urgent care did a UA and did not find any infection or blood in the urine advised her if she is still having abdominal pain to come to the ED for evaluation. Patient is not currently sexually active, does not need to use pads to contain the bleeding. She states last night and this morning she has had worsening periumbilical pain and is still experiencing vaginal bleeding. Denies fever, chills, chest pain, shortness of breath, diarrhea, constipation, black/tarry stool. MD elicited complaint: dysuria Pertinent past history: hysterectomy (July 2024 at [facility]) Onset (ago): day(s) (To) Location of symptoms: other (Periumbilical) Severity: mild Female Urogenital Radiation: Suprapubic Quality of pain: cramping and other (Bloating) Consistency: constant Vaginal bleeding: bright red Urinary symptoms: Dysuria Exacerbating factors: none Possible : other (Hysterectomy) Related Data Home Medications ?Medication ?Instructions ?Recorded ?Confirmed melatonin 10 mg capsule 10 mg PO BEDTIME PRN 06/11/24 11/11/24 cholecalciferol (vitamin D3) 50 50 mcg PO DAILY 11/11/24 11/11/24 mcg (2,000 unit) capsule vitamin B6 1.7 mg-cyanocobalamin tab PO 01/15/25 2.4 mcg-herbs tablet (Centrum Menopause Support) Previous Rx's ?Medication ?Instructions ?Recorded eszopiclone 2 mg tablet (Lunesta) 2 mg PO BEDTIME PRN insomnia 30 11/14/24 days #30 tabs cefuroxime axetil 500 mg tablet 500 mg PO BID 7 days #14 tabs 01/16/25 Allergies Allergy/AdvReac Type Severity Reaction Status Date / Time morphine [MORPHINE] Allergy Intermediate RASH, Hives Verified 01/16/25 09:28 zolpidem AdvReac Intermediate muscle Verified 01/16/25 09:28 twitching sertraline AdvReac Unknown Ulcerative Verified 01/16/25 09:28 Colitis flared seasonal Allergy Mild Sneezing Uncoded 01/16/25 09:28 Review of Systems Review of Systems: CONST: Negative for fever, body aches and chills. HENT: Negative for neck pain/stiffness, headache, congestion, sore throat, swelling. EYES: Negative for discharge/pain or vision changes. RESP: Negative for cough/hemoptysis and shortness of breath. CV: Negative chest pain, difficulty breathing, palpitations. ABD: Negative pain, nausea, vomiting. POS periumbilical pain, abdominal bloating. : Negative increase frequency, blood in stool. POS vaginal bleeding, vaginal soreness, dysuria MUSC: Negative for muscle aches, edema. SKIN: Negative rash, lesions/sores. NEURO: Negative headache, dizziness, weakness. [facility] Past Medical History Attestation statement: The following information was validated with the patient. Source: old records reviewed and nursing notes reviewed Medical History Murmur Kidney stones Dysuria Left ovarian cyst Uterine leiomyoma Insomnia Overweight (BMI 25.0-29.9) Fatigue Ulcerative colitis Surgical History Hx of prior ablation treatment History of esophagogastroduodenoscopy (EGD) H/O: hysterectomy Hx of colonoscopy (~11/14/19) History of surgical procedure History of tooth extraction History of cervical polypectomy Family History Family History Daughter Breast cancer, Onset Age: 31 Maternal Grandmother Cancer Mother Varicose veins of both lower extremities with pain Social History Social History Housing: Apartment Alcohol intake: current Alcohol intake frequency: holidays/special occasions only Alcohol type: wine Patient Tobacco Use Status: Never used Tobacco Smoked in Last 30 Days: No e-Cigarette/Vaping Use: Never Used Second Hand Smoke Exposure: No Use of substances other than those prescribed or required for medical reasons: No Special kali accommodation details: Yazidi Advance Directives: No Advance Directives Information Provided: Yes Do you have a plan to hurt others: No Plan service: No Current occupational status: employed Current occupational exposures/hazards: No Gender identity: Female Cognitive needs: No Hearing needs: No Vision needs: No Physical Exam Vital Signs: Vital Signs: Last Vital Signs Temp 97.1 F 01/16/25 09:26 Pulse 73 01/16/25 09:26 Resp 18 01/16/25 09:26 BP 142/74 H 01/16/25 09:26 Pulse Ox 98 01/16/25 09:26 O2 Del Method Room Air 01/16/25 09:26 BMI result Body Mass Index 30.2 GENERAL APPEARANCE: ?AxOx4, generally well-appearing, no acute distress. HEENT: ?NC, AT. MMM. EOMI, clear conjunctiva, oropharynx clear. NECK: ?Supple without lymphadenopathy.? No stiffness or restricted ROM. HEART:? Normal rate and regular rhythm, normal S1/S1, no m/r/g LUNGS:? CTAB, moving air well. No crackles or wheezes are heard. ABDOMEN: ?Soft, nontender, nondistended with good bowel sounds heard. Suprapubic TTP, no guarding, no rigidity, nondistended, non tympanic, no rebound tenderness, negative David's sign. Old incisions intact without erythema, exudates, overlying skin changes BACK: No CVAT, no obvious deformity. EXTREMITIES: ?Without cyanosis, clubbing or edema. : External genitalia without trauma, lesions. Labia minora without signs of lichenification, lesions, trauma, vaginal canal with minor loss of vaginal rugae consistent with vaginal atrophy of menopause, vaginal cuff intact without bleeding, purulence, erythema. Bimanual exam without masses, adnexal tenderness. No excessive vaginal discharge, blood in the vaginal canal or signs of vaginal candidiasis. NEUROLOGICAL: ?Grossly nonfocal. Alert and oriented, moving all 4 extremities. Observed to ambulate with normal gait. Skin: ?Warm and dry without any rash. Medical Decision Making Medical Decision Making [facility] Narrative: 54-year-old female with medical history of ulcerative colitis s/p hysterectomy [facility] July 2024 presents to the ED today due to 2 days of abdominal bloating and vaginal bleeding. Patient states 2 days ago (01/14) she was in the shower and started experiencing periumbilical pain with abdominal bloating. She states later in the day when she was urinating she noticed bright red blood in the toilet and on the tissue paper. She states she is having some burning pain with urination and dull pain within the vagina. States she is not having increased urinary frequency and feels as if she is able to fully empty her bladder with urination. Patient is not sexually active at this time and has no concern for any STIs. VSS, in no acute distress, nontoxic appearing. Labs without leukocytosis, WNL. On physical exam abdominal incisions from attempted laparoscopic hysterectomy intact with no overlying skin changes, purulence. No CVA tenderness- less likely pyelonephritis. On speculum exam no vesicles or lesions on labia majora or labia minora no lichenification of the labia minora. Vaginal canal with minor loss of rugae, vaginal cuff intact no purulence no dehiscence observed, no excessive vaginal discharge, no blood seen in vaginal vault or from vaginal cuff.- Less likely vaginal cuff dehiscence. No urine or stool leakage from vaginal canal. patient had tenderness over suprapubic area on palpation, without adnexal tenderness on bimanual exam- less likely ovarian cyst. UA reveals turbid urine with 1+ protein 3+ urine blood 3+ leukocyte esterase > 20 RBCs, > 50 WBCs, without squamous epithelial cell contamination. At this time highly suspect UTI, will treat with 7 day course of cefuroxime and encourage patient to follow up with OBGYN/surgeon who performed hysterectomy. Differential Diagnosis Differential Diagnoses: The differential diagnosis associated with the presentation includes UTI Pyelonephritis Ovarian cyst Cuff dehiscence Vesicovaginal fistula Admission/Observation Consideration of admission/observation: Escalation of care including admission/observation considered Lab Data [facility] Lab Attestation statement: I reviewed the patient's lab results. 01/16/25 09:58 01/16/25 09:58 Labs: Lab Results 01/16/25 Range/Units 09:58 WBC 7.4 (4.8-10.8) X10*3/uL RBC 4.76 (4.20-5.50) X10*6/uL Hgb 12.8 (12.0-16.0) g/dl Hct 39.4 (37.0-47.0) % MCV 82.8 (80.0-98.0) fL MCH 26.9 L (27.0-33.0) pg MCHC 32.5 (31.0-35.0) g/dl RDW 12.7 (11.0-16.0) % Plt Count 362 (160-400) X10*3/uL MPV 9.7 (9.4-12.3) fL Immature Gran % (Auto) 0.1 (0.0-0.4) % Neut % (Auto) 74.9 H (45-73) % Lymph % (Auto) 16.9 L (20-40) % Burnet % (Auto) 6.3 (2-11) % Eos % (Auto) 1.1 (0-4) % Baso % (Auto) 0.7 (0-2) % Lymph # (Auto) 1.3 (1.2-4.9) X10*3/uL Burnet # (Auto) 0.5 (0.1-1.2) X10*3/uL Eos # (Auto) 0.1 (0.0-0.4) X10*3/uL Baso # (Auto) 0.1 (0.0-0.2) X10*3/uL Abs Immat Gran (auto) 0.01 (0.00-0.03) X10*3/uL Absolute Neuts (auto) 5.6 (2.0-8.3) x10*3/uL Absolute Nucleated RBC 0.000 (0.0-0.012) X10*3/uL Nucleated RBC % (auto) 0.0 (0.0-0.2) /100WBC Sodium 140 (135-145) mmol/L Potassium 3.9 (3.3-5.1) mmol/L Chloride 106 (96-108) mmol/L Carbon Dioxide 29 (22-29) mmol/L Anion Gap 9 L (12-20) BUN 13 (9-16) mg/dL Creatinine 0.75 (0.5-1.4) mg/dL Estim Creat Clear Calc 88.7 Estimated GFR > 60 Random Glucose 103 (60-115) mg/dL Calcium 9.5 (8.4-10.2) mg/dL Magnesium 1.7 (1.6-2.6) mg/dL Total Bilirubin 0.3 (0.0-1.0) mg/dL Direct Bilirubin 0.1 (0.0-0.5) mg/dL AST 19 (5-31) U/L ALT 19 (0-31) U/L Alkaline Phosphatase 66 (39-117) U/L Total Protein 7.2 (6.5-8.0) g/dL Albumin 4.2 (3.5-5.0) g/dL External Record Review External record reviewed: Inpatient record, Office record and Outpatient record Discharge Plan Discharge Clinical Impression: UTI (urinary tract infection) Qualifiers: Urinary tract infection type: site unspecified Hematuria presence: with hematuria Qualified Code(s): N39.0 - Urinary tract infection, site not specified Patient Disposition: Home, Self-Care Instructions: Urinary Tract Infection in Women (ED) Additional Instructions: You were seen in the emergency department today for abdominal pain, and bleeding with urination. Your blood work was normal did not show any signs of an emergent process. Your urinary analysis revealed the presence of urine blood, red blood cells and white blood cells which is concerning for urinary tract infection. Your physical exam was benign, your vaginal speculum exam did not show any signs of vaginal cuff separation, or blood in the vaginal canal. You will be prescribed a 7 day course of antibiotic called cefuroxime please complete the entire course of medication. Additionally to manage pain you can alternate Tylenol and Motrin every 6 hours. You should follow-up with your surgeon at [facility] and/or your OBGYN whoever can get you in 1st to ensure improvement, and additional evaluation of vaginal cuff after hysterectomy. Please return to the emergency department if you experience fever over 100.4?, increased vaginal discharge, spotting or vaginal bleeding that needs pads to control, increased bleeding with urination, increased abdominal pain, or any other new/concerning/worsening symptoms. Prescriptions: New cefuroxime axetil 500 mg tablet 500 mg PO BID 7 Days Qty: 14 0RF No Action eszopiclone [Lunesta] 2 mg tablet 2 mg PO BEDTIME PRN (Reason: insomnia) 30 Days Qty: 30 1RF Centrum Menopause Support 1.7 mg- 2.4 mcg tablet PO cholecalciferol (vitamin D3) 50 mcg (2,000 unit) capsule 50 mcg PO DAILY melatonin 10 mg capsule 10 mg PO BEDTIME PRN Print Language: Indonesian
--- NOTE | 2025-01-16 10:09 | PC.NURSE ---
patient a&ox3, iv inserted, labs drawn, pt awaiting provider evaluation
[2025-01-16 10:10] LABS: MANUAL DIFF FLAG NO
[2025-01-16 10:12] LABS: Basophils Absolute Auto 0.1 X10*3/uL (0.0-0.2); Basophils Percent Auto 0.7 % (0-2); Eosinophils Absolute Auto 0.1 X10*3/uL (0.0-0.4); Eosinophils Percent Auto 1.1 % (0-4); Hematocrit 39.4 % (37.0-47.0); Hemoglobin 12.8 g/dl (12.0-16.0); Imm Gran Abs Auto 0.01 X10*3/uL (0.00-0.03); Imm Gran Pct Auto 0.1 % (0.0-0.4); Lymphocytes Absolute Auto 1.3 X10*3/uL (1.2-4.9); Lymphocytes Percent Auto 16.9 % (20-40); Mean Corpuscular HGB Conc 32.5 g/dl (31.0-35.0); Mean Corpuscular Hemoglobin 26.9 pg (27.0-33.0); Mean Corpuscular Volume 82.8 fL (80.0-98.0); Mean Platelet Volume 9.7 fL (9.4-12.3); Monocytes Absolute Auto 0.5 X10*3/uL (0.1-1.2); Monocytes Percent Auto 6.3 % (2-11); Neutrophils Absolute Auto 5.6 x10*3/uL (2.0-8.3); Neutrophils Percent Auto 74.9 % (45-73); Platelet Count 362 X10*3/uL (160-400); Red Blood Count 4.76 X10*6/uL (4.20-5.50); Red Cell Distribution Width 12.7 % (11.0-16.0); White Blood Count 7.4 X10*3/uL (4.8-10.8)
[2025-01-16 10:27] LABS: Alanine Aminotransferase 19 U/L (0-31); Albumin Level 4.2 g/dL (3.5-5.0); Alkaline Phosphatase 66 U/L (39-117); Anion Gap 9 (12-20); Aspartate Amino Transferase 19 U/L (5-31); Bilirubin Direct 0.1 mg/dL (0.0-0.5); Bilirubin Total 0.3 mg/dL (0.0-1.0); Blood Urea Nitrogen 13 mg/dL (9-16); Calcium 9.5 mg/dL (8.4-10.2); Carbon Dioxide 29 mmol/L (22-29); Chloride 106 mmol/L (96-108); Creatinine Clr Calc Pharmacy 88.7; Estimated Glomerular Filt Rate > 60; Glucose Random 103 mg/dL (60-115); Magnesium 1.7 mg/dL (1.6-2.6); Potassium 3.9 mmol/L (3.3-5.1); Sodium 140 mmol/L (135-145); Total Protein 7.2 g/dL (6.5-8.0)
--- OUTSIDE RECORDS SUMMARY | 2025-01-16 10:27 | XMS_ITS ---
Author Organization [facility] Address [address] [place] [phone] Care Team Providers Care Investigative Assistant Name Role Phone Brooke Gordon MDh Primary Care Provider [place] Unavailable [phone] REASON FOR VISIT FYI Encounters Encounter Location Date Provider Diagnosis [facility] [address] [place] [phone] 10/24/2024 Pato Lopez Plan Of Treatment Next Appt Details Provider Name:Pato Lopez , 04/15/2025 10:20:00 AM, [address] [place] [address] , [place], [place], [phone], Progress Notes * JOCY SIMENTALDOB: [birth year] (53 yo F)Acc No.[id number]:10/24/2024 Patient:?JOCY SIMENTAL :1970???Age:53 Y???Sex:Female Address:[address] [place] [address] [place] [address] * true * Date:? Generated for Printi ng/Fadinorag/eTransmitting on:?01/16/2025 10:26 AM EDT
[2025-01-16 11:20] VITALS: BP 125/65; PULSE 60; RESP 14; O2SAT 100
[2025-01-16 11:29] LABS: Appearance Urine Turbid; Glucose Urine UA Negative (Negative); Leukocyte Esterase Urine Large (3+) (Negative); Nitrite Urine Negative (Negative); Specific Gravity - Urine <= 1.005 (1.005-1.025); UMIC TRIGGER UACC YES; Urine Blood Large (3+) (Negative); Urine Ketones Negative (Negative); Urine Protein 30 (1+) mg/dL (Neg-Trace)
[2025-01-16 11:30] LABS: Color Urine Yellow
[2025-01-16 11:31] LABS: Bacteria Urine None Seen (None Seen); Hyaline Casts Urine 0-2 /LPF (0-2); RBC Urine >20 /HPF (0-2); Squamous Epithelial Cell Urine 0-2 /HPF (0-2); UACC Culture Trigger YES; WBC Urine >50 /HPF (0-5)
[2025-01-16 12:27] VITALS: BP 125/65; PULSE 60; RESP 14; TEMP 36.3; O2SAT 100
== END 2025-01-16 12:27 | disposition home or self-care (01) ==
PROVIDERS: Emergency Provider Emergency Medicine; PCP Internal Medicine
DX: N39.0 Urinary tract infection, site not specified (principal); N93.9 Abnormal uterine and vaginal bleeding, unspecified; R10.2 Pelvic and perineal pain; R25.2 Cramp and spasm; Z79.899 Other long term (current) drug therapy
CPT/HCPCS: 36415; 80053; 81001; 82248; 83735; 85025; 87086; 87088; 87186; 99283; 99284

== ENCOUNTER 2025-04-15 07:50 | Day surgery (SDC) | payer OTHER, SELFPAY ==
--- OUTSIDE RECORDS SUMMARY | 2024-12-22 13:51 | XMS_ITS ---
Author Organization [facility] Address [address] [place] [address] Care Team Providers Care Tank Assembler Name Role Phone Brooke Gordon MDh Primary Care Provider [place] Unavailable [phone] REASON FOR VISIT FYI Encounters Encounter Location Date Provider Diagnosis [facility] [address] [place] [phone] 10/24/2024 Pato Lopez Plan Of Treatment Next Appt Details Provider Name:Pato Lopez , 01/19/2025 11:30:00 AM, [address] [place] [address], [phone], Progress Notes * JOCY SIMENTALDOB: [birth year] (53 yo F)Acc No.[id number]:10/24/2024 Patient:JOCY ACEVES :1970???Age:53 Y???Sex:Female Address:[address] [place] [address] [place] [address] * true * Date:? Generated for Printi ng/Fadinorag/eTransmitting on:?12/22/2024 01:51 PM EDT
--- OUTSIDE RECORDS SUMMARY | 2024-12-22 13:52 | XMS_ITS | Patient Health Record ---
Author Organization [facility] Address [address] [place] [address] Care Team Providers Care Paleologist Name Role Phone Sunday Gordon MD Primary Care Provider Pato Young [phone] Allergies Allergen (clinical drug ingredient) Drug/Non Drug [...] of alcohol. She is a Oriental orthodox. She does not smoke nor use any significant amounts of alcohol. She is a Oriental orthodox. She does not smoke nor use any significant amounts of alcohol. She is a Oriental orthodox. She does not smoke nor use any significant amounts of alcohol. She is a Oriental orthodox. She does not smoke nor use any significant amounts of alcohol. She is a Oriental orthodox. 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) Active confirmed Problem 598881228 Left upper quadr ant abdominal pain (R10.12) Active confirmed Vital Signs Blood pressure diastolic 00 mm Hg 06/19/2024 Height 64.5 in 06/19/2024 Blood pressure systolic 00 mm Hg 06/19/2024 Weight 167 lbs 06/19/2024 BMI 28.22 kg/m2 06/19/2024 Encounters Encounter Location Date Provider Diagnosis [facility] [address] [place] [phone] 06/19/2024 Pato Lopez 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 ; Family history of colon cancer Z80.0 and Encounter for screening for malignant neoplasm of colon Z12.11 [facility] [address] [place] [phone] 06/12/2024 Pato Lopez [facility] [address] [place] [phone] 10/24/2024 Pato Lopez Assessments Encounter Date Diagnosis [...] Provider Name:Pato Lopez , 01/19/2025 11:30:00 AM, [address] [place] [address] , [place], [place], [phone], Insurance Providers Payer Name Payer Address Payer Phone Subscriber Number Group Number Insured Name Patient Relationship to Insured Coverage Start Date Coverage End Date BLUE [employer] [place] [place] [address] [address] [place] [address] [id number] JOCY SIMENTAL Self - patient is the insured Medical (General) History Medical History History ICD Code Ulcerative colitis diagnosed at age 17- colonoscopy in 06/2009-colitis in proximal rectum and sigmoid-all bx neg for dysplasia. Started Delzicol in 11/2012. Kidney stones Denies [place],DM,CVA,Lung disease, renal dis ease EGD in 07/2011-HH, [...]
--- OUTSIDE RECORDS SUMMARY | 2024-12-22 13:52 | XMS_ITS ---
Author Organization [facility] Address [address] [place] [address] Care Team Providers Care Marshmallow Machine Operator Name Role Phone Sunday Gordon MD Primary Care Provider Pato Young [phone] Allergies Allergen (clinical drug ingredient) Drug/Non Drug [...] significant amounts of alcohol. She is a Orthodoxy. Vital Signs Blood pressure systolic 00 mm Hg 06/19/20 24 Blood pressure diastolic 00 mm Hg 024 Height 64.5 in 06/19/2024 Weight 167 lbs 06/19/2024 BMI 28.22 kg/m2 06/19/2024 Encounters Encounter Location Date Provider Diagnosis [facility] [address] [place] [phone] 06/19/2024 Pato Lopez Ulcerative rectosigmoiditis without complication [...] Name:Pato Escobar John , 01/19/2025 11:30:00 AM, [address] [place] [address] , [place], [place], [phone], Progress Notes * JOCY SIMENTALDOB: [birth year] (53 yo F)Acc No.[id number]:06/19/2024 Progress Notes Patient:?JOCY SIMENTAL Provider:?Pato Lopez MD :1970???Age:53 Y???Sex:Female D ate:06/19/2024 Address:[address] [place], [place] [phone] Pcp:Sunday Gordon MD Subjective: * Chief Complaints: [...] myalgias for which she has seen a logger driving horses but is not felt to have any [...] (0 point),?Points?0,?Interpretation?Negative.?Miscellaneous:?Marital status: single. 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 ???She does not smoke nor use any significant amounts of alcohol. She is a Orthodoxy. * Medications:?None * Allergies:?Morphine Sulfatey es[Allergies Verified] [...] Procedure Codes:?3017F COLOR ECTAL CA SCREEN DOC [id number] TOBACCO NON-[id number] BP SCR NOT PRFRM REC REASON NOS * Preventive Medicine:? ??Counseling:?Care goal follow-up plan:?Above Normal BMI Follow-up?Giving encouragement to exercise,?BMI management provided?Yes.? * Follow Up:?prn * * Sign off status: Completed true * Provider:?Pato Lopez MD Date:? 024 Generated for Merlin platt/Aubrey/Deniseitting on:?12/22/2024 01:51 PM EDT History and Physical Notes * [...] myalgias for which she has seen a logger driving horses but is not felt to have any [...]
--- OUTSIDE RECORDS SUMMARY | 2024-12-22 13:52 | XMS_ITS | Clinical Summary ---
Author Organization [facility] Address [address] [place] [address] Care Team Providers Care Balloon Design Printer Name Role Phone Sunday Gordon MD Primary Care Provider [phone] Allergies Active Allergy Reactions Criticality Noted Date [...] drink = 0.6 oz pur e alcohol) Comments Unknown Sex and Gender Information Value Date Recorded Sex Assigned at Not on file Legal Sex Female 6:36 PM EST Gender Identity Not on file Sexual Orientation [...] (1 of 3 - 19+ 3-dose series) 11/11 Pap Smear (Ages 21-65) 11/28/1992 Mammogram 2011 Colonoscopy 11/28/2016 Pneumococcal Vaccines 50+ (1 of 1 - PCV) 11/28/2021 Zoster (Shingles) Vaccine (1 of 2) 11/28/2021 COVID-19 Vaccine (1 - 2023- season) 2024 Influenza Vaccine 03/13/2025 Medical Devices Implanted Type Area Representative Personal Service Device Identifier Shelf Expiration Date Model / Serial / Lot [id number] Particles Embolization 500-700um Rnd 2ml 20ml Sumeet Syringe - [id number] Implanted:Qty: 1 on 11/22/2018 by Karin Mims MD at [facility] Cardiac [employer] 04/12/2021 [id number] / [id number] / [id number] Insurance R Advance Directives * Full Code (Latest Code Status on File) Date Activated Date Inactivated Comments 11/22/2018 5:38 PM Care Teams Balloon Design Printer Relationship Specialty Start Date End Date Sunday Gordon MD [address] [place] [address] [place] [address] PCP - General Internal Medicine 11/22/18
--- OUTSIDE RECORDS SUMMARY | 2024-12-22 13:52 | XMS_ITS ---
Author Organization [facility] Address [address] [place] [phone] Care Team Providers Care Radio Repairman Name Role Phone Sunday Gordon MD Primary Care Provider Pato Young [phone] REASON FOR VISIT screening,fam hx colon ca, ulcerative rectosigmoiditis Encounters Encounter Location Date Provider Diagnosis [facility] [address] [place] [phone] 11/21/2024 Pato Lopez Plan Of Treatment Next Appt Details Provider Name:Pato Lopez , 01/19/2025 11:30:00 AM, [address] [place] [address], [phone], Progress Notes * JOCY SIMENTALDOB: [birth year] (54 yo F)Acc No.[id number]:11/21/2024 COLON WITH MAC Patient:?JOCY SIMENTAL Provider:?Pato Lopez MD :1970???Age:53 Y???Sex:Female D ate:11/21/2024 Address:[address] [place], [place] [phone] Pcp:Sunday Gordon MD Subjective: * Chief Complaints: [...] MD Date:?04/11/2 025 Generated for Merlin platt/Aubrey/Barbara on:?12/22/2024 01:51 PM EDT
[2025-01-15 15:00] VITALS: BMI 28.2
[2025-04-15 08:48] VITALS: BMI 29.3
[2025-04-15 08:57] VITALS: BP 120/85; PULSE 61; RESP 18; TEMP 36.9; O2SAT 100
[2025-04-15 09:14] VITALS: BMI 29.3
[2025-04-15] MEDS: Lactated Ringers 1,000 ML 100 ML IVCONT (09:15)
--- NOTE | 2025-04-15 09:20 | HO.ANESPROP2 ---
Documented by User: Sharee Villegas NP 04/14/25 09:17 HPI - Anesthesia Eval Consult details Narrative: 54 yr old female for colonoscopy s/p abdominal hysterectomy 07/2024 [facility] Active Problems Active Problems: All Active Problems (Updated 01/17/25 @ 00:01 by Angelique Lynn) Pain in left lower leg (Acute) Headache (Acute) Neuropathy (Acute) Cervicalgia (Acute) Facial paresthesia (Acute) Lower extremity pain (Acute) Painful arc syndrome of right shoulder (Acute) Chest pain (Acute) Primary osteoarthritis, right shoulder (Acute) Callus of toe (Acute) Varicose veins of left lower extremity with inflammation (Acute) Mood changes (Acute) Annual physical exam (Acute) Mild anemia (Acute) Varicose veins of bilateral lower extremities with pain (Acute) Abdominal pain (Acute) Chondromalacia patellae of right knee (Acute) Nose lesion (Acute) Right knee pain (Acute) Sinus congestion (Acute) Sinus infection (Acute) Flu-like symptoms (Acute) Sinus pressure (Acute) Right anterior knee pain (Acute) Cellulitis (Acute) Dysuria (Acute) Uterine leiomyoma (Acute) Insomnia (Acute) Overweight (BMI 25.0-29.9) (Acute) Ulcerative colitis (Acute) Fatigue (Acute) Past Medical History Medical History Murmur Kidney stones Dysuria Left ovarian cyst Uterine leiomyoma Insomnia Overweight (BMI 25.0-29.9) Fatigue Ulcerative colitis Family History Family History Daughter Breast cancer, Onset Age: 31 Maternal Grandmother Cancer Mother Varicose veins of both lower extremities with pain Surgical History Surgical History Hx of prior ablation treatment History of esophagogastroduodenoscopy (EGD) H/O: hysterectomy Hx of colonoscopy (~11/14/19) History of surgical procedure History of tooth extraction History of cervical polypectomy Social History Social History Housing: Apartment Alcohol intake: current Alcohol intake frequency: holidays/special occasions only Alcohol type: wine Patient Tobacco Use Status: Never used Tobacco e-Cigarette/Vaping Use: Never Used Second Hand Smoke Exposure: No Use of substances other than those prescribed or required for medical reasons: No Special kali accommodation details: Gnosticism Are you DNR?: No Advance Directives: No Advance Directives Information Provided: Yes Patient : No service: No Current occupational status: employed Current occupational exposures/hazards: No Gender identity: Female Cognitive needs: No Hearing needs: No Vision needs: No Meds Allergies Allergy/AdvReac Type Severity Reaction Status Date / Time morphine (MORPHINE) Allergy Intermediate RASH, Hives Verified 01/16/25 09:28 zolpidem AdvReac Intermediate muscle Verified 01/16/25 09:28 twitching sertraline AdvReac Unknown Ulcerative Verified 01/16/25 09:28 Colitis flared seasonal Allergy Mild Sneezing Uncoded 01/16/25 09:28 Home Medications ?Medication ?Instructions ?Recorded ?Confirmed ?Last Taken ?Type melatonin 10 mg capsule 10 mg PO BEDTIME PRN 06/11/24 11/11/24 Unknown History cholecalciferol (vitamin D3) 50 50 mcg PO DAILY 11/11/24 11/11/24 Unknown History mcg (2,000 unit) capsule vitamin B6 1.7 mg-cyanocobalamin tab PO 01/15/25 Unknown History 2.4 mcg-herbs tablet (Centrum Menopause Support) Exam Height,Weight and Vital Signs: Height 5 ft 4.5 in Weight 75.75 kg Documented by User: Tami Marcano DO 04/15/25 09:21 [facility] Past Medical History Medical History Murmur Kidney stones Dysuria Left ovarian cyst Uterine leiomyoma Insomnia Overweight (BMI 25.0-29.9) Fatigue Ulcerative colitis Family History Family History Daughter Breast cancer, Onset Age: 31 Maternal Grandmother Cancer Mother Varicose veins of both lower extremities with pain Family history of problems with anesthesia: No Surgical History Surgical History Hx of prior ablation treatment History of esophagogastroduodenoscopy (EGD) H/O: hysterectomy Hx of colonoscopy (~11/14/19) History of surgical procedure History of tooth extraction History of cervical polypectomy History of Problems with Anesthesia: No Social History Social History Housing: Apartment Alcohol intake: current Alcohol intake frequency: holidays/special occasions only Alcohol type: wine Patient Tobacco Use Status: Never used Tobacco e-Cigarette/Vaping Use: Never Used Second Hand Smoke Exposure: No Use of substances other than those prescribed or required for medical reasons: No Special kali accommodation details: Gnosticism Are you DNR?: No Advance Directives: No Advance Directives Information Provided: Yes Patient : No service: No Current occupational status: employed Current occupational exposures/hazards: No Gender identity: Female Cognitive needs: No Hearing needs: No Vision needs: No Meds Allergies Allergy/AdvReac Type Severity Reaction Status Date / Time morphine (MORPHINE) Allergy Intermediate RASH, Hives Verified 01/16/25 09:28 zolpidem AdvReac Intermediate muscle Verified 01/16/25 09:28 twitching sertraline AdvReac Unknown Ulcerative Verified 01/16/25 09:28 Colitis flared seasonal Allergy Mild Sneezing Uncoded 01/16/25 09:28 Home Medications ?Medication ?Instructions ?Recorded ?Confirmed ?Last Taken ?Type melatonin 10 mg capsule 10 mg PO BEDTIME PRN 06/11/24 11/11/24 Unknown History cholecalciferol (vitamin D3) 50 50 mcg PO DAILY 11/11/24 11/11/24 Unknown History mcg (2,000 unit) capsule vitamin B6 1.7 mg-cyanocobalamin tab PO 01/15/25 Unknown History 2.4 mcg-herbs tablet (Centrum Menopause Support) Exam Exam Date and Time: 04/15/25 0920 Height,Weight and Vital Signs: Height 5 ft 4.5 in Weight 75.75 kg Vital Signs Temperature 98.4 F 04/15/25 08:57 Pulse Rate 61 04/15/25 08:57 Respiratory Rate 18 04/15/25 08:57 Blood Pressure 120/85 04/15/25 08:57 Pulse Oximetry 100 04/15/25 08:57 Oxygen Delivery Method Room Air 04/15/25 08:57 Temperature 98.4 F 04/15/25 08:57 Pulse Rate 61 04/15/25 08:57 Respiratory Rate 18 04/15/25 08:57 Blood Pressure 120/85 04/15/25 08:57 Pulse Oximetry 100 04/15/25 08:57 Oxygen Delivery Method Room Air 04/15/25 08:57 Airway Mallampati Class: I TM Dist: >3cm Neck ROM: Full Loose/Missing/Broken Teeth: No (patient denies any loose or broken teeth) Heart: S1S2 Lungs: CTAB Assessment and Plan Assessment Anesthesia Assessment: Anesthesia Plan Discussed and Chart Reviewed Final Anesthetic Review Family History of Problems with Anesthesia: No History of Problems with Anesthesia: No NPO: Yes ASA Class: II Final Preanesthetic Review: No Changes in Pt Med Stat, Meds/Allgs Chart Reviewed, Consent Obtained/Reviewed and Anes Risks/Benef Reviewed Patient Risk: Low Procedure Risk: Low Anesthetic Plan Anesthetic Plan: MAC: and Agree w/ Assess. and Plan Disposition: Standard PACU
--- NOTE | 2025-04-15 09:20 | PC.NURSE ---
Twenty four hour preop eval completed on paper documentation by Dr Lopez
[2025-04-15 10:17] VITALS: BP 104/57; PULSE 60; RESP 16; TEMP 36.6; O2SAT 98
--- NOTE | 2025-04-15 10:24 | PM.OP ---
Brief Operative Note Date of Service: 04/15/25 Pre-op diagnosis: Screening, Ulcerative colitis Post-op diagnosis: other (Same, R/O dysplasia, Mild diverticulosis) Procedure: Colonoscopy to the cecum and TI with biopsies Surgeon: Pato Lopez MD Anesthesia: MAC Was an Street [employer] used for this Procedure?: No Estimated blood loss (mL): 2.0 Pathology: other (A. Ascending colon B. Transverse colon C. Descending colon D. Sigmoid colon E. Rectum) Condition: stable Disposition: PACU
[2025-04-15 10:30] VITALS: BP 102/56; PULSE 56; RESP 16; TEMP 36.6; O2SAT 98
--- NOTE | 2025-04-15 11:17 | OP_ITS ---
DATE OF SERVICE: 04/15/2025 SURGEON: Pato Lopez MD INDICATIONS: The patient presents for evaluation of colorectal cancer screening in regard to a longstanding history of ulcerative colitis, and family history of colon cancer. Full consent has been obtained from her for this, including risks of bleeding and perforation. PREOPERATIVE DIAGNOSIS: POSTOPERATIVE DIAGNOSIS: PROCEDURE PERFORMED: Colonoscopy to the cecum and terminal ileum with multiple biopsies. ESTIMATED BLOOD LOSS: COMPLICATIONS: ANESTHESIA: Medication used, monitored anesthesia care. ASSISTANTS: SPECIMENS: PREOPERATIVE DIAGNOSES: Colorectal cancer screening, history of ulcerative colitis, and family history of colon cancer. POSTOPERATIVE DIAGNOSES: Colorectal cancer screening, history of ulcerative colitis, and family history of colon cancer, rule out dysplasia, mild sigmoid diverticulosis, small internal hemorrhoids. DESCRIPTION OF PROCEDURE: The patient was placed in the left lateral decubitus position. The digital rectal exam revealed no abnormalities. There was no sign of any perianal disease. The [email or web address] video pediatric colonoscope was entered into the rectum and advanced easily to the cecum. Once in the cecum, I did identify normal-appearing cecal pouch with appendiceal orifice and a normal-appearing ileocecal valve. The terminal ileum was cannulated and appeared normal. The scope was withdrawn back in the colon. The entire cecum and ileocecal valve appeared normal. The scope was slowly withdrawn assessing all mucosal surfaces carefully. Preparation was excellent. I did not visualize any sign of colitis other than a 5 mm area of edema with 1 erosion in the descending colon. I did not visualize any sign of polyps or angiodysplasia. I did obtain random biopsies in the ascending colon, transverse colon, descending colon, sigmoid colon, and rectum. In the rectum, the scope was retroflexed visualizing small internal hemorrhoids, but no other pathology. The rectal mucosa appeared normal.. The scope was straightened and withdrawn from the patient. She tolerated the procedure well and was returned to the recovery area in stable condition. IMPRESSION: 1. History of ulcerative colitis, rule out dysplasia. 2. Occasional sigmoid diverticulosis. 3. Small internal hemorrhoids. PLAN: The results of the biopsies will be checked. Assuming there is no dysplasia, I would then recommend a repeat colonoscopy in 5 years for further screening given her history of ulcerative colitis, although in the past it was limited to the rectosigmoid area, and her family history of colon cancer. She was advised not to use any aspirin nor NSAIDs for 1 week, but to try to avoid those in general due to the underlying inflammatory bowel disease. If she is doing well, she can see me in the interim on a p.r.n. basis. She currently is not using any medication for the colitis and has been in clinical remission. MD FINA Morgan/SAVITA / [id number] MTDD
== END 2025-04-15 11:20 | disposition home or self-care (01) ==
PROVIDERS: PCP Internal Medicine; Visit Provider Internal Medicine
PROC: 0DJD8ZZ Inspection of Lower Intestinal Tract, Via Natural or Artificial Opening Endoscopic (ICD-10-PCS; CPT 45378; principal; 2025-04-15 09:10)
DX: Z12.11 Encounter for screening for malignant neoplasm of colon (principal); K57.30 Diverticulosis of large intestine without perforation or abscess without bleeding; K64.8 Other hemorrhoids; K51.90 Ulcerative colitis, unspecified, without complications; Z80.0 Family history of malignant neoplasm of digestive organs
CPT/HCPCS: 45380; 88305; J2003; J2704

== ENCOUNTER 2025-05-15 08:55 | Outpatient (AMB) | payer OTHER, SELFPAY ==
--- OUTSIDE RECORDS SUMMARY | 2024-11-21 04:30 | XMS_ITS ---
Author Organization [facility] Address [address] [place] [address] Care Team Providers Care Licensed And Certified Midwife Name Role Phone Sunday Gordon MD Primary Care Provider Pato Young [phone] REASON FOR VISIT screening,fam hx colon ca, ulcerative rectosigmoiditis Encounters Encounter Location Date Provider Diagnosis [facility] Out[facility] [address], [place] [phone] 11/21/2024 Pato Lopez Plan Of Treatment No Information Progress Notes * JOCY SIMENTALDOB: [birth year] (54 yo F)Acc No.[id number]:11/21/2024 COLON WITH MAC Patient: JOCY CORTEZ Provider: Cresencio Lopez MD :1970 A ge:53 Y S ex:Female Date:11/21/2024 Address:[address] [place], [place] [phone] Pcp:Sunday Gordon MD Subjective: * Chief Complaints: * 1 . Screening,fam hx colon ca, ulcerative rectosigmoiditis. * Medical History: Objective: * Vitals: Assessment: Plan: * Treatment: * * The named appointment provid er may or may not be the originator of this progress note, and it is not deemed complete until electronically signed by the appointment provider. Sign off status: Pending * Provider: Cresencio Lopez MD Date: 0 11/21/2024 Generated for Merlin platt/Aubrey/eTransmitting on: 1 09:22 AM EDT
--- OUTSIDE RECORDS SUMMARY | 2025-04-15 05:10 | XMS_ITS ---
Author Organization [facility] Address [address] [place] [phone] Care Team Providers Care Echo Tech Name Role Phone Evan DE JESUS, Sunday Primary Care Provider Pato Young [phone] REASON FOR VISIT screening,fam hx colon ca, ulcerative rectosigmoiditis Encounters Encounter Location Date Provider Diagnosis [facility] [address] [place], [place] [phone] 04/15/2025 Pato Lopez Plan Of Treatment No Information Progress Notes * JOCY SIMENTALDOB: [birth year] (54 yo F)Acc No.[id number]:04/15/2025 COLON WITH MAC Patient: JOCY CORTEZ Provider: Cresencio Lopez MD :1970 A ge:54 Y S ex:Female Date:04/15/2025 Address:[address] [place], [place] [phone] Pcp:Sunday Gordon MD Subjective: * Chief Complaints: [...] * Provider: Cresencio Lopez MD Date: 0 04/15/2025 Generated for Merlin platt/Aubrey/eTransmitting on: 1 09:22 AM EDT
[2025-05-15 08:59] VITALS: BP 104/78
--- NOTE | 2025-05-15 08:59 | A.OFFPC_ITS ---
Vital Signs 05/15/25 08:59 Height 5 ft 4.5 in Weight 177 lb 8 oz BMI 30.0 BP 104/78 Blood Pressure Location Lt brachial Position Sitting Pulse Source Pulse Oximeter Oxygen Delivery Method Room Air Intake Visit Reasons: Annual Exam Filler Shaker Required: No Accompanied by: Self / Same As Patient Allergies morphine (MORPHINE) Allergy (Intermediate, Verified 05/15/25 09:15) RASH, Hives zolpidem Adverse Reaction (Intermediate, Verified 05/15/25 09:15) muscle twitching sertraline Adverse Reaction (Unknown, Verified 05/15/25 09:15) Ulcerative Colitis flared seasonal Allergy (Mild, Uncoded 05/15/25 09:15) Sneezing Medication List - Last Reconciled 05/15/25 by Sunday Gordon MD cholecalciferol (vitamin D3) 50 mcg PO DAILY vitamin L6-ebkklpgaouanwp-cjay 1.7 mg- 2.4 mcg (Centrum Menopause Support) tabs PO Tobacco use date assessed: 05/15/25 Dental Screening Dental Screen Date: 05/15/25 Did you have a dental visit in the last 12 months?: Yes Did you have a dental problem in the last 6 months where you did not have access to dental care?: No Was dental information given to patient?: Patient has dentist HPI Annual Exam HPI Details Patient comes in today for her annual physical examination States that she feels okay Denies any headaches or dizziness Denies any chest pains, no SOB No nausea/vomiting, no abdominal pain No change in bowel habits noted Denies any acute urinary symptoms She is still experiencing on and off pain over the distal left lower leg posteriorly and around the ankle area - would like to know if her CT done back in December 2024 showed anything pertinent She did not get her previously ordered follow up labs done yet - states that she will try to get them done sometime in the next few days and would like to have an estrogen level added to her labs She just had her screening colonoscopy done last month on 04/15/[address] Lopez; was recommended for repeat colonoscopy in 5 years given her Hx of ulcerative colitis She had a negative pap smear in 2021; was last seen by gynecology on 11/25/2024 - states that she had a hysterectomy done at [facility] last July 2024 so she does not need to keep up with her yearly gynecology exam and pap smear anymore Her mammogram was last done on 02/20/2024 She is not yet due for BMD for osteoporosis screening as she was still having some menstrual periods (although they were slowing down at the time) when she had her hysterectomy done last July 2024 - will likely need to start BMD sometime in 2027 or 2028 [facility] Medical History (Updated 05/15/25 @ 09:55 by Sunday Gordon MD) Obesity (BMI 30-39.9) Migraine Murmur Kidney stones Dysuria Left ovarian cyst Uterine leiomyoma Insomnia Overweight (BMI 25.0-29.9) Fatigue Ulcerative colitis Surgical History Hx of prior ablation treatment History of esophagogastroduodenoscopy (EGD) H/O: hysterectomy Hx of colonoscopy (~11/14/19) History of surgical procedure History of tooth extraction History of cervical polypectomy Family History Daughter Breast cancer, Onset Age: 31 Maternal Grandmother Cancer Mother Varicose veins of both lower extremities with pain Social History Housing: Apartment Alcohol intake: current Alcohol intake frequency: holidays/special occasions only Alcohol type: wine Patient Tobacco Use Status: Never used Tobacco e-Cigarette/Vaping Use: Never Used Second Hand Smoke Exposure: No Special kali accommodation details: Rastafari service: No Current occupational status: employed Current occupational exposures/hazards: No Gender identity: Female Cognitive needs: No Hearing needs: No Vision needs: No Female Reproductive History Menstrual Age of Menarche: 12 Questionnaire PHQ-9 Over the last 2 weeks, how often have you been bothered by any of the following problems? 1. Little interest or pleasure in doing things: not at all 2. Feeling down, depressed, or hopeless: several days 3. Trouble falling or staying asleep, or sleeping too much: several days 4. Feeling tired or having little energy: several days 5. Poor appetite or overeating: not at all 6. Feeling bad about yourself - or that you are a failure or have let yourself or your family down: not at all 7. Trouble concentrating on things, such as reading the newspaper or watching television: not at all 8. Moving or speaking so slowly that other people could have noticed. Or the opposite - being so fidgety or restless that you have been moving around a lot more than usual: not at all 9. Thoughts that you would be better off or of hurting yourself in some way: not at all Total score: 3 Depression Screening Interpretation: Positive Depression Screening Follow-up: Existing condition and In treatment Depression Screening Done: Yes 34253 - PHQ-9 Billing: Yes Source: Developed by Drs. Pato Garay, Madison Hilario, Ney Shelton and colleagues, with an educational desi from [email or web address]. Thrive Questionnaire Date Thrive assessed: 05/15/25 I am a: Patient What is your living situation today?: I have a steady place to live Within the past 12 months, did the food you bought not last and you didn't have the money to get more?: I choose not to answer this question Within the past 12 months, did you worry whether your food would run out before you got money to buy more?: I choose not to answer this question Do you have trouble paying for medicines?: No Do you have trouble getting transportation to medical appointments?: I choose not to answer this question Do you have trouble paying your heating and electricity bill?: No Do you have trouble taking care of your child, family member or friend?: No Do you have trouble with day-to-day activities such as bathing, preparing meals, shopping, managing finances, etc.?: No Are you currently unemployed and looking for a job?: No Are you interested in more education?: No Please select the resources that you would like help with: None Currently or been in a relationship where the following occur: No concerns reported THRIVE Score: 0 AUDIT C Alcohol Use Questionnaire (AUDIT-C) 1. How often do you have a drink containing alcohol?: Monthly or less 2. How many drinks containing alcohol do you have on a typical day when you are drinking?: 1 or 2 3. How often do you have six or more drinks on one occasion?: Never Total Score: 1 Score Reviewed/Action Taken: Yes PARRISH-7 AMB Questionnaire PARRISH-7 Date PARRISH - 7 assessed: 04/01/25 Feeling nervous, anxious, or on edge: 1 = Several days Not being able to stop or control worryin = Several days Worrying too much about different things: 2 = More than half the days Trouble relaxin = Several days Being so restless that it is hard to sit still: 1 = Several days Becoming easily annoyed or irritable: 0 = Not at all Feeling afraid as if something awful might happen: 0 = Not at all Total PARRISH-7 score (0-4 normal; 5-9 mild; 10-14 moderate; 15-21 severe): 6 Source: Developed by Drs. Pato Garay, Madison Hilario, Ney Shelton and colleagues, with an educational dsei from [email or web address]. Review of Systems Const Denies chills, Denies fatigue, Denies fever(s), Denies headache(s) and Denies malaise Eyes Denies blurry vision, Denies change in vision, Denies irritation and Denies itchy eyes ENT Denies dysphagia, Denies dizziness, Denies otalgia, Denies headache(s), Denies nasal congestion, Denies neck pain, Denies odynophagia, Denies sinus pain and Denies sore throat Card Denies chest pain, Denies rapid heart rate, Denies irregular heart rhythm, Denies palpitations and Denies dyspnea Resp Denies chest congestion, Denies cough, Denies dyspnea and Denies wheezing GI Denies abdominal pain, Denies bloating, Denies constipation, Denies dysphagia, Denies heartburn, Denies diarrhea, Denies nausea, Denies odynophagia and Denies vomiting Denies hematuria, Denies urinary frequency, Denies dysuria, Denies urinary incontinence and Denies urinary urgency Musc Denies back pain, Reports arthralgias (on and off over and around the left ankle area), Denies joint swelling, Denies muscle weakness and Denies neck pain Skin/Breast Denies breast pain, Denies breast mass, Denies change in pigmentation, Denies lesions, Denies rash and Denies unusual bruising Neuro Denies dizziness, Denies headache(s) and Denies paresthesias Psych Denies anxiety and Denies depression Endo Denies fatigue and Denies palpitations Eder/Lymph Denies easy bruising Aller/Immun Denies itchy eyes and Denies wheezing Physical exam (Primary Care) Vital Signs: Last Vital Signs BP 104/78 05/15/25 08:59 Oxygen Delivery Method Room Air 05/15/25 08:59 BMI result Body Mass Index 30.0 Tobacco/Smoking Status: Tobacco use Status Tobacco use date assessed 05/15/25 05/15/25 09:08 Patient Tobacco Use Status Never used Tobacco 05/15/25 09:08 e-Cigarette/Vaping Use Never Used 05/15/25 09:08 PHQ-9: PHQ-9 Score PHQ-9: Total score 3 05/15/25 09:08 Depression Screening Interpretation: Positive Depression Screening Follow-up: Existing condition and In treatment Thrive Assessment: Date of Thrive Assessment Date Thrive assessed 05/15/25 05/15/25 09:08 Currently or been in a relationship where the following occur: No concerns reported Const General: no acute distress, alert and awake Orientation/consciousness: patient oriented x3 HENMT Head: Yes normocephalic and Yes atraumatic Ears: external ears normal, TM's normal bilaterally and EAC's normal General nose exam: No nasal discharge present Face and sinus: Yes normal facial exam and Yes sinuses nontender Teeth and gingiva: dentition normal Throat: Yes posterior oropharynx normal and Yes tonsils normal (no TP congestion) Eyes Eyelids: Yes eyelids normal Conjunctivae: conjunctivae normal Pupils: Equal, round and reactive pupils present EOM: EOMs intact bilaterally Neck Neck: Yes supple and No lymphadenopathy Thyroid: Thyroid normal Resp Auscultation: clear to auscultation bilaterally, no rales and no wheezes Cardio Rate: regular rate Rhythm: regular rhythm Heart sounds: no murmurs GI Palpation (GI): Soft to palpation, nontender and No hepatosplenomegaly present Auscultation: normal bowel sounds General: Yes no CVA tenderness Back/Spine/Pelvis Back: no CVA tenderness Thoracic/Lumbar Spine: thoracic and lumbar spine normal to inspection Skin Lesions: no lesions Rashes: no rashes Neuro General: patient oriented x3, moves all extremities, no focal motor deficits and CN's II-XI intact bilaterally Cranial nerves: Yes Equal, round and reactive pupils present Cognition (Neuro): normal cognition Gait exam (Neuro): Normal gait present Extrem General: Yes no clubbing, cyanosis or edema Coding Level of Care Code Est Pt Prev Care 40-64y(47979) Diagnoses Annual physical exam Z00.00 Migraine without status migrainosus, not intractable, unspecified migraine type G43.909 Migraine type: unspecified Status migrainosus presence: without status migrainosus Intractability: not intractable Cervicalgia M54.2 Ulcerative colitis without complications, unspecified location K51.90 Ulcerative colitis location: unspecified ulcerative colitis location Digestive disease complication type: without complication Uterine leiomyoma, unspecified location D25.9 Uterine leiomyoma location: unspecified location Left ovarian cyst N83.202 Primary osteoarthritis, right shoulder M19.011 Varicose veins of bilateral lower extremities with pain I83.813 Pain in left lower leg M79.662 Insomnia, unspecified type G47.00 Insomnia type: unspecified Obesity (BMI 30-39.9) E66.9 Breast cancer screening by mammogram Z12.31 Additional Codes PHQ-9 - 83559 - PHQ-9 Billing: Yes ([id number]) Assessment & Plan Assessment & Plan (1) Annual physical exam: Code(s): Z00.00 - Encounter for general adult medical examination without abnormal findings Category: Medical Plan: Patient is advised to try and get her previously ordered labs done AISHWARYA to complete her annual exam today She just had her screening colonoscopy done last month on 04/15/[address] Lopez; was recommended for repeat colonoscopy in 5 years given her Hx of ulcerative colitis She had a negative pap smear in 2021; was last seen by gynecology on 11/25/2024 - she had a hysterectomy done at [facility] last July 2024 so she does not need to keep up with her yearly gynecology exam and pap smear anymore Mammogram was last done on 02/20/2024 (2) Migraine: Code(s): G43.909 - Migraine, unspecified, not intractable, without status migrainosus Category: Medical Qualifiers: Migraine type: unspecified Status migrainosus presence: without status migrainosus Intractability: not intractable Qualified Code(s): G43.909 - Migraine, unspecified, not intractable, without status migrainosus Plan: She takes OTC Ibuprofen PRN with mild and temporary relief of her symptoms but she tries to avoid taking too much of this for fear of aggravating her UC Her head CT done back in May 2024 came back normal She was seen by neurology late last year (2023) and was advised that if her headaches get worse, then can consider starting on prescription Rx for migraine (3) Cervicalgia: Code(s): M54.2 - Cervicalgia Category: Medical Plan: Cervical spine x-rays done back on 05/09/2024 revealed (+) mild degenerative disc disease at C5-C6 and mild anterolisthesis of C3 with respect to C4 and C4 with respect to C5 She also stopped taking Methocarbamol 500 mg as she states that her neck pains have been mostly manageable and she finds the muscle relaxant too sedating for her (4) Ulcerative colitis: Code(s): K51.90 - Ulcerative colitis, unspecified, without complications Category: Medical Qualifiers: Ulcerative colitis location: unspecified ulcerative colitis location Digestive disease complication type: without complication Qualified Code(s): K51.90 - Ulcerative colitis, unspecified, without complications Plan: Stable/controlled She was on Apriso 1.5 gm Q AM in the past but she stopped taking this last year and has been trying to eat healthier and is hoping that diet modification would allow her to cut back on her need to take any Rx She just had her repeat colonoscopy done in April 2025 - colonoscopy came out normal Follow up with GI as scheduled (5) Uterine leiomyoma: Comment: S/P uterine artery embolization in 2019 Hysterectomy 07/2024. Code(s): D25.9 - Leiomyoma of uterus, unspecified Category: Medical Qualifiers: Uterine leiomyoma location: unspecified location Qualified Code(s): D25.9 - Leiomyoma of uterus, unspecified Plan: S/P Tx with UAE in 2019 Pelvic MRI done last year revealed (+) multiple uterine myomas, several with some small submucosal components distorting the endometrium, decreased in size from prior MR pelvis and the majority demonstrating no discernible enhancement compatible with posttreatment effect She underwent elective hysterectomy at [facility] back in July 2024 Follow up with gynecology as scheduled (6) Left ovarian cyst: Code(s): N83.202 - Unspecified ovarian cyst, left side Category: Medical Plan: Her pelvic MRI in 2023 also revealed (+) 5.4 cm left ovarian cyst with a single thin internal septation almost certainly benign, new from 01/11/2024 Recommend annual pelvic ultrasound for follow up Follow up with gynecology as scheduled (7) Primary osteoarthritis, right shoulder: Code(s): M19.011 - Primary osteoarthritis, right shoulder Category: Medical Plan: Follow up with orthpedics as scheduled (8) Varicose veins of bilateral lower extremities with pain: Code(s): I83.813 - Varicose veins of bilateral lower extremities with pain Category: Medical Plan: Follow up with vascular surgery as scheduled (9) Pain in left lower leg: Code(s): M79.662 - Pain in left lower leg Category: Medical Plan: EMG and NCV done on 05/26/2024 came out normal, with NO evidence of neuropathy She used to take Gabapentin but stopped taking this a while back She has been seen and evaluated by rheumatology, vascular surgery, neurology and pain management for her left anterior leg pain but so far, no one has been able to provide her with an explanation for her left leg symptoms and she would like to keep searching for answers for her leg pain Left lower leg CT done in December 2024 revealed (+) small benign bone island within the medial distal femoral metadiaphysis and small type 1 accessory navicular. There is minimal knee medial and patellofemoral compartment osteoarthritis and mild tibiotalar osteoarthritis as well as small plantar calcaneal enthesophyte Have advised patient that if her symptoms progress, we can consider referring her to orthopedics for further management (10) Insomnia: Code(s): G47.00 - Insomnia, unspecified Category: Medical Qualifiers: Insomnia type: unspecified Qualified Code(s): G47.00 - Insomnia, unspecified Plan: Sleep hygiene reinforced She was prescribed Triazolam 0.25 mg Q HS PRN last year but she never took the Rx as she prefers to avoid any sleep aids and due to concerns about side effects from the Rx that can affect her the following day She agreed to try Zolpidem 5 mg Q HS PRN but she stopped taking it after a couple of doses (11) Obesity (BMI 30-39.9): Code(s): E66.9 - Obesity, unspecified Category: Medical Plan: Reinforced diet/exercise as tolerated/lose weight (12) Breast cancer screening by mammogram: Code(s): Z12.31 - Encounter for screening mammogram for malignant neoplasm of breast Category: Medical Plan: She is due for her annual mammogram - ordered Plan Follow up in 6 months Orders: Orders Estrogen Today R45.86 - Emotional lability, Z00.00 - Encounter for general adult medical examination without abnormal findings MM tomosynthesis screening BI Today Z12.31 - Encounter for screening mammogram for malignant neoplasm of breast
--- OUTSIDE RECORDS SUMMARY | 2025-05-15 09:22 | XMS_ITS | Clinical Summary ---
Author Organization [facility] Address [address] [place] [address] Care Team Providers Care Farm Service Adviser Name Role Phone Sunday Gordon MD Primary Care Provider [phone] Allergies Active Allergy Reactions Criticality Noted Date [...] 64 11/24/2018 5:00 AM EDT Temperature 37.2 C (98.9 F) 11/24/2018 5:00 AM EDT Respiratory Rate 16 11/24/2018 5:00 AM EDT [...] Vaccine (1 of 2) 11/28/2021 Influenza Vaccine 03/13/2025 COVID-19 Vaccine ( - 2023- season) 2025 Medical Devices Implanted Type Area Gift Officer Device Identifier Shelf Expiration Date Model / Serial / Lot [id number] Particles Embolization 500-700um Rnd 2ml 20ml Sumeet Syringe - [id number] Implanted:Qty: 1 on 11/22/2018 by Karin Mims MD at [facility] [employer] 04/12/2021 [id number] / [id number] / [id number] [facility] [place] [id number] R Advance Directives * Full Code (Latest Code Status on File) Date Activated Date Inactivated Comments 11/22/2018 5:38 PM Care Teams Farm Service Adviser Relationship Specialty Start Date End Date Sunday Gordon MD [address] [place] [address] Dr Lizbeth [place] [id number] PCP - General Internal Medicine 11/22/18
--- OUTSIDE RECORDS SUMMARY | 2025-05-15 09:23 | XMS_ITS | Patient Health Record ---
Author Organization [facility] Address [address] [place] [address] Care Team Providers Care Candlemaking Laborer Name Role Phone Brooke Gordon MDh Primary Care Provider Pato Young [phone] Allergies Allergen (clinical drug ingredient) Drug/Non Drug Allergy documented on EMR Reaction Allergy Type Onset Date Status Morphine Sulfate Unknown Drug Allergy Active Results Component Value Reference Range Notes Pathology (Not yet reviewed by provider) Interpretation: Performing Lab:[facility], [address] [place] [id number] Notes/Report: Reason For Referral No Information Immunizations Vaccine [...] significant amounts of alcohol. She is a Sikhism. She does not smoke nor use any significant amounts of alcohol. She is a Sikhism. She does not smoke nor use any significant amounts of alcohol. She is a Sikhism. She does not smoke nor use any significant amounts of alcohol. She is a Sikhism. She does not smoke nor use any significant amounts of alcohol. She is a Sikhism. 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) Active confirmed Problem 392631495 Left upper quadr ant abdominal pain (R10.12) Active confirmed Vital Signs Blood pressure diastolic 00 mm Hg 06/19/2024 Height 64.5 in 06/19/2024 Blood pressure systolic 00 mm Hg 06/19/2024 Weight 167 lbs 06/19/2024 BMI 28.22 kg/m2 06/19/2024 Encounters Encounter Location Date Provider Diagnosis [facility] [address] [place] [id number] 04/15/2025 Pato Lopez [facility] [address] [place] [phone] 06/19/2024 Pato Lopez 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 ; Family history of colon cancer Z80.0 and Encounter for screening for malignant neoplasm of colon Z12.11 [facility] [address] [place] [phone] 06/12/2024 Pato Lopez [facility] [address] [place] [phone] 10/24/2024 Pato Lopez [facility] [address] [place] [phone] 01/16/2025 Pato Lopez Assessments Encounter Date Diagnosis (ICD [...] TOXIN A&B (C DIFF) 01/2018 STOOL WBC 02/15/2018 STOOL WBC 10/17/2016 GIARDIA AG, STOOL EIA 10/17/2016 GIARDIA AG, STOOL EIA 02/15/2018 OVA & PARASITES (O&P) 10/17/2016 OVA & PARASITES (O&P) 02/15/2018 CULTURE, STOOL 10/06/2014 CULTURE, STOOL 10/17/2016 CULTURE, STOOL 02/15/2018 Pathology 04/15/2025 Future Test Test Name Order Date COLONOSCOPY 10/30/2014 COLONOSCOPY 11/05/2019 COLONOSCOPY 06/19/2024 Insurance Providers Payer Name Payer Address Payer Phone Subscriber Number Group Number Insured Name Patient Relationship to Insured Coverage Start Date Coverage End Date [employer] [address] [address] [place] [address] [id number] SIMENTAL Self - patient is the insured Medical (General) History Medical History History ICD Code Ulcerative colitis diagnosed at age 17- colonoscopy in 06/2009-colitis in proximal rectum and sigmoid-all bx neg for dysplasia. Started Delzicol in 11/2012. Kidney stones Denies NV,DM,CVA,Lung disease, renal dis ease EGD in 07/2011-HH, [...]
== END 2025-05-15 10:02 | disposition home or self-care (01) ==
LOC: HO.HMCH 08:56
PROVIDERS: PCP Internal Medicine; Visit Provider Internal Medicine
DX: Z00.00 Encounter for general adult medical examination without abnormal findings (principal); K51.90 Ulcerative colitis, unspecified, without complications; E66.9 Obesity, unspecified; Z68.30 Body mass index [BMI] 30.0-30.9, adult; G43.909 Migraine, unspecified, not intractable, without status migrainosus; M54.2 Cervicalgia; D25.9 Leiomyoma of uterus, unspecified; N83.202 Unspecified ovarian cyst, left side; M19.011 Primary osteoarthritis, right shoulder; I83.813 Varicose veins of bilateral lower extremities with pain; M79.662 Pain in left lower leg; G47.00 Insomnia, unspecified

== ENCOUNTER → 2025-05-15 08:55 | Outpatient (BNVA) | payer OTHER, SELFPAY | PROVIDERS: PCP Internal Medicine; Visit Provider Internal Medicine | DX: Z00.00 Encounter for general adult medical examination without abnormal findings (principal); G43.909 Migraine, unspecified, not intractable, without status migrainosus; M54.2 Cervicalgia; K51.90 Ulcerative colitis, unspecified, without complications; D25.9 Leiomyoma of uterus, unspecified; N83.202 Unspecified ovarian cyst, left side; M19.011 Primary osteoarthritis, right shoulder; I83.813 Varicose veins of bilateral lower extremities with pain; M79.662 Pain in left lower leg; G47.00 Insomnia, unspecified; E66.9 Obesity, unspecified; R45.86 Emotional lability; Z68.30 Body mass index [BMI] 30.0-30.9, adult | CPT/HCPCS: 96127 ==

== ENCOUNTER 2025-05-19 08:22 | Outpatient (REF) | payer OTHER, SELFPAY ==
[2025-05-19 08:39] LABS: MANUAL DIFF FLAG NO
[2025-05-19 09:33] LABS: Hematocrit 41.1 % (37.0-47.0); Hemoglobin 13.5 g/dl (12.0-16.0); Imm Gran Abs Auto 0.02 X10*3/uL (0.00-0.03); Imm Gran Pct Auto 0.3 % (0.0-0.4); Lymphocytes Absolute Auto 1.7 X10*3/uL (1.2-4.9); Mean Corpuscular HGB Conc 32.8 g/dl (31.0-35.0); Mean Corpuscular Hemoglobin 27.2 pg (27.0-33.0); Mean Corpuscular Volume 82.9 fL (80.0-98.0); NRBC Abs Auto 0.000 X10*3/uL (0.0-0.012); NRBC Pct Auto 0.0 /100WBC (0.0-0.2); Platelet Count 322 X10*3/uL (160-400); Red Blood Count 4.96 X10*6/uL (4.20-5.50); White Blood Count 7.0 X10*3/uL (4.8-10.8)
[2025-05-19 10:20] LABS: Appearance Urine Cloudy; Glucose Urine UA Negative (Negative); PH 5.5 (5.0-9.0); Specific Gravity - Urine 1.025 (1.005-1.025)
[2025-05-19 10:22] LABS: Alanine Aminotransferase 21 U/L (0-31); Albumin Level 4.4 g/dL (3.5-5.0); Alkaline Phosphatase 58 U/L (39-117); Anion Gap 10 (12-20); Aspartate Amino Transferase 19 U/L (5-31); Blood Urea Nitrogen 14 mg/dL (9-16); Calcium 9.1 mg/dL (8.4-10.2); Carbon Dioxide 26 mmol/L (22-29); Chloride 108 mmol/L (96-108); Cholesterol 223 mg/dL (<200); Estimated Glomerular Filt Rate > 60; HDL Cholesterol 59 mg/dL (>40); Magnesium 1.9 mg/dL (1.6-2.6); Potassium 4.1 mmol/L (3.3-5.1); Sodium 140 mmol/L (135-145); Total Protein 7.3 g/dL (6.5-8.0); Triglycerides 109 mg/dL (<150)
[2025-05-19 10:33] LABS: Folate 9.4 ng/mL (> or = 4.0); Vitamin B12 795 pg/mL (200-900)
== END 2025-05-19 08:23 | disposition home or self-care (01) ==
LOC: HO.LAB 08:22
PROVIDERS: PCP Internal Medicine; Visit Provider Internal Medicine
DX: Z00.00 Encounter for general adult medical examination without abnormal findings (principal); E78.00 Pure hypercholesterolemia, unspecified; E53.8 Deficiency of other specified B group vitamins; E83.42 Hypomagnesemia; D64.9 Anemia, unspecified; R45.86 Emotional lability; R30.0 Dysuria
CPT/HCPCS: 36415; 80053; 80061; 81003; 82306; 82607; 82672; 82746; 83735; 84443; 85025